=== PATIENT | male | born 1940 | race Caucasian/White ===

== ENCOUNTER 2017-10-28 15:44 | Inpatient (IN) | payer OTHER, MEDICARE ==
[2017-10-28] MEDS ORDERED: CEFTRIAXONE/SWI 2gm 2 GM/20 ML SYR IV SCH (18:00)
[2017-10-28] MEDS: HYDRALAZINE HCL 25 MG TABLET PO SCH ×2 (18:05→20:57)
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
--- NOTE | 2017-10-28 20:51 | RAD REPORT ---
EXAM DESCRIPTION: RAD - Chest Pa And Lat (2 Views) - 10/28/2017 8:25 pm CLINICAL HISTORY: Fever COMPARISON: CT imaging same date, chest examination August 06 TECHNIQUE: PA and lateral views of the chest were obtained. FINDINGS: The lungs are fibrotic. There is scarring of the pleura and parenchyma in each lung base, worse on the left. Patient has a known large hiatal hernia from prior diaphragmatic injury. No active process. Old rib trauma noted on the left. Trachea is midline. Heart size is normal and central va sculature is within normal limits. No pneumothorax. No acute bony finding noted. No aortic abnormal ity. IMPRESSION: No acute cardiopulmonary process. The above detailed chest findings are not significant ly different from comparison.
[2017-10-28] MEDS ORDERED: HOME MED 1 EA UNK (Pravastatin [Pravachol*] 40 MG) PO SCH (21:00)
[2017-10-28] MEDS: NACHLORIDE 0.45% 1,000 ML IV SCH (21:00)
[2017-10-28] MEDS ORDERED: LATANOPROST EACH EYE SCH (21:00)
[2017-10-28] MEDS: ATORVASTATIN 10 MG TAB PO SCH (21:01)
[2017-10-28] MEDS: METOPROLOL TAR 25 MG TAB PO SCH (21:01)
[2017-10-28] MEDS: CIPROFLOXACIN 400mg IV 400 MG/200 ML BAG IV SCH (21:12)
[2017-10-28 21:17] LABS: Urine Appearance CLEAR; Urine Bilirubin NEGATIVE (NEG); Urine Blood NEGATIVE (NEG); Urine Color YELLOW; Urine Glucose NEGATIVE (NEG); Urine Protein 1+ (NEG); Urine Specific Gravity >=1.030 (1.005-1.030)
[2017-10-28 21:18] LABS: Urine Microscopic Reflex ORDER UMIC
[2017-10-28 21:33] LABS: Urine Bacteria <20 /HPF (NONE SEEN); Urine Culture Reflex Order NOT NEEDED; Urine RBC <5 /HPF (NONE SEEN)
[2017-10-29] MEDS: METRONIDAZOLE 500mg IVPB 500 MG/100 ML BAG IV SCH ×3 (01:22→17:08)
[2017-10-29] MEDS: NACHLORIDE 0.45% 1,000 ML IV SCH ×2 (05:30→17:08)
[2017-10-29] MEDS ORDERED: OLMESARTAN MEDOXOMIL 40 MG PO SCH (09:00)
[2017-10-29] MEDS: HYDRALAZINE HCL 25 MG TABLET PO SCH ×4 (09:16→20:23)
[2017-10-29] MEDS: CIPROFLOXACIN 400mg IV 400 MG/200 ML BAG IV SCH ×2 (09:16→20:23)
[2017-10-29] MEDS: VALSARTAN 160 MG TAB PO SCH (09:16)
[2017-10-29] MEDS: METOPROLOL TAR 25 MG TAB PO SCH ×2 (09:17→20:23)
--- NOTE | 2017-10-29 19:25 | HP ---
Date of Admission: 10/28/2017 Chief Complaint: High fever, lower abdominal pain. History Of Present Illness: A 77-year-old male was brought to the office with a few days of lower ab dominal pain and dysuria. Initially, urinalysis in the office was negative. The patient was admitte d for observation to see why his white count was elevated to 19,000. He had outpatient blood work. After admission, the patient had a CAT scan done, which showed evidence of moderate sigmoid diverticu litis. Past Medical History: Positive for hypertension, intermittent bowel obstruction. Family History: Noncontributory. Personal History: No known drug allergies. Home Medicines: Please refer to the chart. Review of Systems: No history of chest pain or shortness of breath. Physical Examination: General: Revealed a 77-year-old male. HEENT: Negative. Neck: Supple. JVD negative. Chest: Clear. Heart: Regular. Abdomen: Tender suprapubic area. Bowel sounds present. Extremities: No edema. Laboratory Data: White count at admission outpatient 19,000. Chem profile essentially negative. Assessment: 1.Acute diverticulitis. 2.Hypertension. 3.History of small bowel obstruction. Plan: IV Cipro and Flagyl. Follow the CBC. DILLON/BILLY Voice ID: [id number]
[2017-10-29] MEDS: ATORVASTATIN 10 MG TAB PO SCH (20:24)
[2017-10-29] MEDS ORDERED: ALPRAZOLAM 0.5 MG TABLET PO PRN (21:26)
[2017-10-29] MEDS: ENOXAPARIN 40 MG/0.4 ML SQ SCH (21:47)
--- NOTE | 2017-10-29 23:20 | PN ---
The patient is doing better. His tenderness is better. He is afebrile. Since he is improving, he w ill be continued on the same antibiotics. His CBC will be done tomorrow. DILLON/BILLY Voice ID: [id number] Report ID: [id number]
[2017-10-30] MEDS: METRONIDAZOLE 500mg IVPB 500 MG/100 ML BAG IV SCH ×2 (00:27→09:39)
[2017-10-30] MEDS: NACHLORIDE 0.45% 1,000 ML IV SCH (00:28)
--- NOTE | 2017-10-30 07:43 | EKG ---
Test Date: 2017-10-29 Test Time: 20:47:34 Restaurant Area Manager: OSEI MEASUREMENT RESULTS: Intervals: Rate: 73 NV: 148 QRSD: 84 QT: 422 QTc: 464 Wyckoff: P: 59 NV: 148 QRS: -32 T: 8 INTERPRETIVE STATEMENTS: Sinus rhythm with occasional and consecutive premature ventricular complexes Left axis deviation Abnormal ECG Compared to ECG 08/05/2017 04:42:29 Sinus arrhythmia no longer present Prolonged QT interval no longer present Electronically Signed On 10-30-17 07:42:44 CDT by Luis Salinas
[2017-10-30 09:39] LABS: RBC Red Blood Cell Count 3.81 M/uL (4.33-5.43)
[2017-10-30] MEDS: METOPROLOL TAR 25 MG TAB PO SCH ×2 (09:39→21:45)
[2017-10-30] MEDS: CIPROFLOXACIN 400mg IV 400 MG/200 ML BAG IV SCH ×2 (09:39→21:47)
[2017-10-30] MEDS: HYDRALAZINE HCL 25 MG TABLET PO SCH ×4 (09:39→21:53)
[2017-10-30] MEDS: VALSARTAN 160 MG TAB PO SCH (09:39)
[2017-10-30 09:40] LABS: Absolute Lymphocytes (CBC) 1.6 K/uL (0.7-4.9); Absolute Monocytes 2.7 K/uL (0.1-1.3); Absolute Neutrophil 10.3 K/uL (1.8-8.0); Basophils % 0.4 % (0-1.3); Eosinophils % 2.9 % (0-4.4); Hematocrit 35.9 % (39.6-49.0); Lymphocytes % 10.5 % (15.3-44.8); MCH 31.1 pg (27.0-35.0); MCV 94.2 fL (80-100); MPV 9.5 fL (7.6-11.3); Monocytes % 17.8 % (3.3-12.3)
--- NOTE | 2017-10-30 19:48 | PN ---
Subjective: The patient feeling better. He is tolerating the diet, which will be advanced. His whi te count has come down to 15,000. He still has some tenderness in the left lower quadrant. The frank ent will be continued along the same line since he is eating adequately. He will be taken off IV flu ids. DILLON/BILLY Voice ID: [id number] Report ID: [id number]
[2017-10-30] MEDS: ENOXAPARIN 40 MG/0.4 ML SQ SCH (21:47)
[2017-10-30] MEDS: ATORVASTATIN 10 MG TAB PO SCH (21:47)
[2017-10-30] MEDS: metroNIDAZOLE 500 MG TABLET PO SCH (21:47)
[2017-10-31] MEDS: VALSARTAN 160 MG TAB PO SCH (10:14)
[2017-10-31] MEDS: metroNIDAZOLE 500 MG TABLET PO SCH ×3 (10:14→20:11)
[2017-10-31] MEDS: HYDRALAZINE HCL 25 MG TABLET PO SCH ×4 (10:14→20:11)
[2017-10-31] MEDS: CIPROFLOXACIN 400mg IV 400 MG/200 ML BAG IV SCH ×2 (10:14→20:10)
[2017-10-31] MEDS: METOPROLOL TAR 25 MG TAB PO SCH ×2 (10:15→20:24)
[2017-10-31] MEDS: ATORVASTATIN 10 MG TAB PO SCH (20:11)
[2017-10-31] MEDS: ENOXAPARIN 40 MG/0.4 ML SQ SCH (20:11)
[2017-11-01 00:46] VITALS: O2SAT 96
[2017-11-01 07:21] VITALS: BMI 23.9
[2017-11-01] MEDS: CIPROFLOXACIN 400mg IV 400 MG/200 ML BAG IV SCH (09:00)
[2017-11-01] MEDS: metroNIDAZOLE 500 MG TABLET PO SCH (10:07)
[2017-11-01] MEDS: METOPROLOL TAR 25 MG TAB PO SCH (10:07)
[2017-11-01] MEDS: HYDRALAZINE HCL 25 MG TABLET PO SCH ×2 (10:07→12:33)
[2017-11-01] MEDS: VALSARTAN 160 MG TAB PO SCH (10:08)
[2017-11-01 12:43] VITALS: BP 185/82; TEMP 97.5
--- NOTE | 2017-12-05 17:09 | DS ---
Date of Discharge: 11/01/2017 Final Diagnoses: 1.Acute diverticulitis. 2.Hypertension. 3.History of small bowel obstruction. Hospital Course: This patient was brought to the office because of abdominal pain, dysuria, and feve r. The patient had a CAT scan done, which showed sigmoid diverticulitis with a white count of 18,000 . After admission to the hospital, the patient was kept n.p.o. He received IV Cipro and Flagyl. Ov er the few days, he showed improvement of pain as well as fever. The patient was discharged on oral Cipro and Flagyl and to be followed in the office. Laboratory Data: White count 19,000. CAT scan of the abdomen, evidence of sigmoid diverticulitis. DILLON/BILLY Voice ID: [id number] Report ID: [id number]
== END 2017-11-01 12:48 | disposition home or self-care (01) | DRG 392 ==
LOC: 2ND 16:46
PROVIDERS: ADMIT Internal Medicine; ATTEND Internal Medicine
DX: K57.32 Diverticulitis of large intestine without perforation or abscess without bleeding (principal); I10 Essential (primary) hypertension
CPT/HCPCS: 36415; 71046; 74177; 80053; 81003; 81015; 85025; 87040; 87086; 87088; 87205; 87493; 93005; J0696; J0744; J1650; Q9967

== ENCOUNTER 2019-10-09 22:03 | Inpatient (IN) | payer OTHER, MEDICARE ==
[2019-10-09] MEDS ORDERED: NA CHLORIDE 0.9% 500 ML ONE (22:37)
[2019-10-09] MEDS ORDERED: ONDANSETRON 4 MG/2 ML VIAL ONE (22:37)
[2019-10-09] MEDS ORDERED: MORPHINE 4 MG/ML SYR ONE (22:37)
[2019-10-09 23:02] LABS: Absolute Lymphocytes (CBC) 2.3 K/uL (0.7-4.9); Basophils % 0.6 % (0-1.3); Hematocrit 44.2 % (39.6-49.0); Lymphocytes % 12.6 % (15.3-44.8); MPV 9.8 fL (7.6-11.3); RBC Red Blood Cell Count 4.67 M/uL (4.33-5.43)
[2019-10-09 23:06] LABS: Albumin 4.3 g/dL (3.4-5.0); Bilirubin Direct 0.1 mg/dL (0-0.2); Bilirubin Total 0.5 mg/dL (0.2-1.0); Potassium 3.9 mmol/L (3.5-5.1); Protein, Total 9.2 g/dL (6.4-8.2)
[2019-10-10] MEDS ORDERED: MEPERIDINE HCL 25 MG/0.5 ML ONE (00:20)
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
--- NOTE | 2019-10-10 01:39 | ER ---
Nurse's Notes [facility] Name: Brennen Patel Age: 79 yrs Sex: Male : 1940 Arrival Date: 10/09/2019 Time: 22:07 Bed 14 Private MD: Diagnosis: Small bowel obstruction;Dehydration Presentation: 10/08 22:18 Chief complaint: Patient states: i have lower abdominal pain since lunch time. i have mg2 history of small bowel obstruction last 2017. my last bowel movement was yesterday. Coronavirus screen: Proceed with normal triage. Ebola Screen: No symptoms or risks identified at this time. Initial Sepsis Screen: Does the patient meet any 2 criteria? No. Patient's initial sepsis screen is negative. Does the patient have a suspected source of infection? No. Patient's initial sepsis screen is negative. Risk Assessment: Do you want to hurt yourself or someone else? Patient reports no desire to harm self or others. Onset of symptoms was October 09, 2019. 22:18 Method Of Arrival: Ambulatory mg2 22:18 Acuity: EL 3 mg2 Historical: - Allergies: 22:29 No Known Allergies; mg2 - Home Meds: 22:29 hydralazine 50 mg Oral tab 1 tab 4 times per day [Active]; Benicar 40 mg Oral tab 1 tab mg2 once daily [Active]; pravastatin 40 mg Oral tab 1 tab once daily [Active]; metoprolol tartrate 25 mg Oral tab 1 tab 2 times per day [Active]; pantaprazole 40mg [Active]; amlodipine 5 mg tab 1 tab once daily [Active]; - PMHx: 22:29 GERD; High Cholesterol; Hypertension; mg2 - PSHx: 22:29 abdominal sx; mg2 - Immunization history:: Flu vaccine is up to date. - Social history:: Smoking status: unknown. - Family history:: not pertinent. - Hospitalizations: : No recent hospitalization is reported. Screenin:46 Abuse screen: Denies threats or abuse. Denies injuries from another. Nutritional mg2 screening: No deficits noted. Tuberculosis screening: No symptoms or risk factors identified. Fall Risk IV access (20 points). Assessment: 22:42 General: Appears in no apparent distress. comfortable, Behavior is calm, cooperative. mg2 Pain: Complains of pain in abdomen. Neuro: Level of Consciousness is awake, alert, obeys commands, Oriented to person, place, time, situation. Cardiovascular: Capillary refill < 3 seconds Patient's skin is warm and dry. Respiratory: Airway is patent Respiratory effort is even, unlabored, Respiratory pattern is regular, symmetrical. GI: Bowel sounds present X 4 quads. Abd is soft and non tender Abd is soft X 4 quads. : No signs and/or symptoms were reported regarding the genitourinary system. EENT: No signs and/or symptoms were reported regarding the EENT system. Derm: Skin is intact, is healthy with good turgor, Skin is pink, warm \T\ dry. normal. Musculoskeletal: Circulation, motion, and sensation intact. Capillary refill < 3 seconds. 23:43 Reassessment: Patient appears in no apparent distress at this time. Patient and/or mg2 family updated on plan of care and expected duration. Pain level reassessed. Patient is alert, oriented x 3, equal unlabored respirations, skin warm/dry/pink. 10/09 00:45 Reassessment: patient sent to ct scan via stretcher. mg2 01:21 Reassessment: Patient appears in no apparent distress at this time. Patient and/or mg2 family updated on plan of care and expected duration. Pain level reassessed. Patient is alert, oriented x 3, equal unlabored respirations, skin warm/dry/pink. Patient states feeling better. 02:20 Reassessment: coffee ground gastric content noted via NGT. mg2 Vital Signs: 10/08 22:18 BP 184 / 91; Pulse 75; Resp 18; Temp 98.1; Pulse Ox 100% on R/A; Weight 72.57 kg; mg2 Height 5 ft. 9 in. (175.26 cm); 23:09 BP 157 / 77; mg2 10/09 00:18 BP 135 / 89; Pulse 78; Resp 18; Pulse Ox 98% on R/A; mg2 01:21 BP 148 / 74; Pulse 72; Resp 18; Pulse Ox 99% on R/A; mg2 02:25 BP 147 / 67; Pulse 73; Resp 18; Temp 98; Pulse Ox 94% on R/A; rr5 10/08 22:18 Body Mass Index 23.63 (72.57 kg, 175.26 cm) mg2 ED Course: 10/08 22:07 Patient arrived in ED. bp1 22:11 Andrew Kenny MD is Attending Physician. rn 22:23 Charlie Grijalva, BHUPINDER is Primary Nurse. mg2 22:26 Triage completed. mg2 22:26 Arm band placed on. mg2 22:40 Call light in reach. Side rails up X 1. Warm blanket given. Verbal reassurance given. jp3 Pulse ox on. NIBP on. 22:40 Initial lab(s) drawn, by me, sent to lab. Inserted saline lock: 20 gauge in right jp3 antecubital area, using aseptic technique. Blood collected. 22:46 No provider procedures requiring assistance completed. mg2 10/09 00:51 CT Abd/Pelvis - PO and IV Contrast In Process Unspecified. EDMS 01:38 Bob Lewis MD is Hospitalizing Provider. rn 02:00 NGT: inserted 16 Fr. via right nare. verified placement of air over stomach, verified mg2 return of gastric contents, to intermittent suction. Returned gastric contents. Patient tolerated well. 02:09 Patient admitted, IV remains in place. mg2 Administered Medications: 10/08 22:36 Drug: NS 0.9% 500 ml Route: IV; Rate: bolus; Site: right antecubital; mg2 22:36 Drug: morphine 4 mg Route: IVP; Site: right antecubital; mg2 22:55 Follow up: Response: No adverse reaction; RASS: Alert and Calm (0) mg2 22:37 Drug: Zofran (Ondansetron) 4 mg Route: IVP; Site: right antecubital; mg2 22:54 Follow up: Response: No adverse reaction mg2 10/09 00:18 Drug: Demerol 25 mg Route: IVP; Site: right antecubital; mg2 02:08 Follow up: Response: No adverse reaction mg2 01:46 Drug: Flagyl 500 mg Volume: 100 ml; Route: IVPB; Rate: 200 ml/hr; Infused Over: 30 mg2 mins; Site: right antecubital; 02:20 Follow up: Response: No adverse reaction; IV Status: Completed infusion mg2 01:47 Drug: Rocephin 1 grams Route: IV; Rate: calculated rate; Site: right antecubital; mg2 Output: 02:20 Gastric: 900ml (NGT); Total: 900ml. mg2 Outcome: 01:38 Decision to Hospitalize by Provider. rn 02:22 Admitted to Med/surg accompanied by tech, via stretcher, room 224, with chart, Report rr5 called to denis 02:22 Condition: stable 02:22 Instructed on the need for admit. 02:31 Patient left the ED. mg2 Signatures: Dispatcher [employer] EDMS Andrew Kenny MD MD rn Gardose, Michele, RN RN mg2 Miko Javed jp3 Arun Luque RN RN rr5 [facility]
[2019-10-10] MEDS ORDERED: ONDANSETRON 4 MG/2 ML VIAL IV PRN (01:43)
[2019-10-10] MEDS ORDERED: MORPHINE 2 MG/ML SYR IV PRN (01:43)
[2019-10-10] MEDS ORDERED: ALBUTEROL 2.5 MG/3 ML NEB SOL NEB PRN ×2 (01:46→16:00)
[2019-10-10] MEDS ORDERED: CEFTRIAXONE/SWI 1gm 1 GM/10 ML SYR ONE (01:47)
[2019-10-10] MEDS ORDERED: METRONIDAZOLE 500mg IVPB 500 MG/100 ML BAG IV ONE (01:47)
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
[2019-10-10 02:54] VITALS: BMI 25.4
[2019-10-10] MEDS: D5 0.9 NS 1,000 ML IV SCH ×2 (03:28→12:00)
[2019-10-10] MEDS: CEFTRIAXONE/SWI 1gm 1 GM/10 ML SYR IV SCH (08:31)
[2019-10-10] MEDS: HEPARIN 5000 UNIT/ML 1 ML VIAL SQ SCH ×2 (08:31→20:17)
[2019-10-10] MEDS: FAMOTIDINE 20 MG/2 ML VIAL IV SCH (08:31)
--- NOTE | 2019-10-10 11:28 | RAD REPORT ---
EXAM DESCRIPTION: CT abdomen and pelvis with IV contrast CLINICAL HISTORY: 79-year-old male with lower abdominal pain since lunch today; history of previous abdominal surgery f or small bowel obstruction in 2018. TECHNIQUE: Axial CT imaging of the abdomen and pelvis was performed following the administration of intravenous contrast.. Sagittal and coronal reconstructed images were then performed. The CT study is perform ed according to ALARA (as low as reasonably achievable) or ALARA/IMAGE GENTLY, with automatic adjustm ent of mA and/or kV according to patient size. Performed on: 10/10/2019 at 12:43 AM. COMPARISON: 10/28/2017 FINDINGS: Lung bases: The lung bases are clear. However, there is a large hiatal hernia containing p ortions of the stomach, multiple small bowel loops as well as portions of the pancreas and omental fa t. Liver: The liver is normal in size and configuration. No focal hepatic abnormalities are identified. Liver attenuation is within normal limits. There is a punctate calcification within the right hepatic lobe near the dome. Spleen: The spleen is surgically absent. There is a small splenule in the left upper quadrant measuri ng approximately 1.8 cm in diameter. Gallbladder and bile duct: The gallbladder is well distended and unremarkable. There is no biliary ductal dilatation. Pancreas: The pancreas is grossly unremarkable. However, a portion of the pancreas extends through th e hiatal hernia. Adrenal Glands: The adrenal glands are normal in size and configuration. Kidneys: The kidneys are normal in size and configuration. There is no evidence of hydronephrosis. Th ere are nonobstructing right renal calculi. No definite solid or cystic renal mass lesions are identi fied. Stomach: The stomach is moderately distended with oral contrast. There is a moderate hiatal hernia as described above. Bowel: There are multiple dilated fluid-filled small bowel loops in the mid to upper abdomen consiste nt with a small bowel obstruction. The transition point appears to be in the mid left hemiabdomen. Th ere is associated mesenteric edema and there is a small amount of free fluid in the pelvis. The dista l small bowel loops are normal in caliber. There appears to be a duodenal diverticulum which partiall y contains air and contrast. There is scattered colonic diverticulosis. Appendix: The appendix is normal. Free air: There is no evidence of free air. Free fluid: There is a small amount of free fluid in the pelvis. Vasculature: The aorta is normal in caliber and contour. The inferior vena cava is grossly unremarkab le. There are atherosclerotic calcifications along the abdominal aorta and proximal iliac and femoral arteries. Lymphadenopathy: No pathologic lymphadenopathy is identified. Bladder: The bladder is well distended and smooth in contour. Reproductive: The prostate gland is mildly enlarged and measures approximately 4.6 x 3.9 cm in cross- sectional diameter. Bones: There are advanced degenerative changes of the thoracolumbar spine. There are old healed fract ures of the pubic rami bilaterally. Soft tissues: There is a small fat-containing supraumbilical ventral abdominal wall hernia. There is a small fat-containing right inguinal hernia similar when compared to the prior study. IMPRESSION: 1. CT findings consistent with a small bowel obstruction. The transition point appears t o be in the mid left hemiabdomen. There is associated mesenteric edema and a small amount of free flu id in the pelvis without definite pneumoperitoneum. 2. Prior splenectomy. 3. Large hiatal hernia containing portions of the stomach, small bowel and pancreas. 4. Nonobstructing right renal calculi. 5. Colonic diverticulosis. 6. Duodenal diverticulum. 7. Advanced degenerative changes of the thoracolumbar spine and old healed pubic rami fractures bilat erally. 8. Grossly stable small fat-containing supraumbilical ventral abdominal wall hernia and fat-containin g right inguinal hernia. These critical findings were discussed with Dr. Kenny on 10/10/2019 at 1:28 AM central time Electronically signed by: Sydnie Florian DO 10/10/2019 1:33 AM CDT Due to temporary technical issues with the PACS/Fluency reporting system, reports are being signed by the in house radiologist as a courtesy to ensure prompt reporting. The interpreting radiologist is f ully responsible for the content of the report.
--- NOTE | 2019-10-10 11:29 | RAD REPORT ---
EXAM DESCRIPTION: RAD - Abdomen W Erect - 10/10/2019 11:18 am CLINICAL HISTORY: SBO Pain COMPARISON: ABDOMEN W ERECT dated 07/05/2005; Abdomen Pelvis W Contrast dated 10/10/2019 FINDINGS: A large hiatal hernia is seen with enteric tube in the stomach. Moderate stool present in the right colon. No dilated small bowel loops are seen. No evidence of pneumoperitoneum.
[2019-10-10] MEDS ORDERED: KCL 20 MEQ/100 mL IVPB 20 MEQ/100 ML BAG IV SCH (13:00)
[2019-10-10] MEDS: D5 0.45 NS 1,000 ML IV SCH ×2 (13:04→23:00)
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
[2019-10-10] MEDS: METRONIDAZOLE 500mg IVPB 500 MG/100 ML BAG IV SCH (18:18)
--- NOTE | 2019-10-10 18:42 | RAD REPORT ---
EXAM DESCRIPTION: US - Renal Ultrasound-Complete - 10/10/2019 6:36 pm CLINICAL HISTORY: JUANCHO COMPARISON: Abdomen Pelvis W Contrast dated 10/10/2019 FINDINGS: The right kidney measures approximately 8.0 x 4.2 x 3.8 cm. The left kidney measures 8.6 x 3.9 x 3.3 cm. Cortical thickness is normal. Echogenicity is not outside of normal range. No hydrone phrosis or suspicious renal mass. Patient has nonobstructing calculi upper pole of the right kidney. No bladder wall thickening or mass. No intraluminal stone or mass. IMPRESSION: No hydronephrosis or suspicious renal mass. No other significant findings.
[2019-10-10] MEDS ORDERED: HOME MED [LATANOPROST 0.005% 2.5ML OPTH] OPTH SCH (21:00)
[2019-10-11] MEDS: METRONIDAZOLE 500mg IVPB 500 MG/100 ML BAG IV SCH ×3 (00:28→16:48)
[2019-10-11 04:27] LABS: Absolute Lymphocytes (CBC) 2.1 K/uL (0.7-4.9); Basophils % 0.6 % (0-1.3); Hematocrit 34.9 % (39.6-49.0); Lymphocytes % 14.6 % (15.3-44.8); MPV 9.8 fL (7.6-11.3); RBC Red Blood Cell Count 3.74 M/uL (4.33-5.43)
[2019-10-11 04:41] LABS: Albumin 2.9 g/dL (3.4-5.0); Bilirubin Total 0.5 mg/dL (0.2-1.0); Phosphorus 2.1 mg/dL (2.5-4.9); Potassium 3.5 mmol/L (3.5-5.1); Protein, Total 6.7 g/dL (6.4-8.2)
[2019-10-11] MEDS: D5 0.45 NS 1,000 ML IV SCH ×2 (04:54→18:17)
[2019-10-11 05:07] LABS: Blood Morphology Comment NOTED (NOT SEEN); Burr Cells 3+; Platelet Estimate ADEQ
[2019-10-11] MEDS: FAMOTIDINE 20 MG/2 ML VIAL IV SCH (10:59)
[2019-10-11] MEDS: HEPARIN 5000 UNIT/ML 1 ML VIAL SQ SCH ×2 (10:59→21:40)
[2019-10-11] MEDS: CEFTRIAXONE/SWI 1gm 1 GM/10 ML SYR IV SCH (10:59)
[2019-10-11] MEDS: HYDRALAZINE HCL 20 MG/ML VIAL IV PRN (11:55)
[2019-10-11 12:06] LABS: Urine Protein/Creatinine Ratio 0.61 ratio (<0.15)
--- NOTE | 2019-10-11 14:52 | PN ---
Date of Progress Note: 10/11/2019 Patient is awake, alert, passing gas. Vital signs stable, afebrile. X-ray reviewed, no evidence of obstruction. Labs noted. Please note patient did have a low-grade temperature earlier today. Abdom en is soft, nondistended, nontender. Positive bowel sounds. Assessment: Small-bowel obstruction, resolving. Recommendations: Clamp NG tube. Start clear liquids. May discontinue NG tube if clear liquids are tolerated later today and then cleared from a surgical standpoint to be discharged in 24 to 48 hours. /MODL Voice ID: [id number] Report ID: [id number]
[2019-10-11] MEDS ORDERED: MINERAL OIL 30 ML UCUP PO ONE (16:00)
--- NOTE | 2019-10-11 16:37 | P.PN ---
Subjective Date of Service: 10/11/19 Chief Complaint: LOWER ABDOMINAL PAIN Subjective: Improving Patient seen and examined chart reviewed and case discussed with RN. Patient tolerating clear liquids. NG tube has been clamped. Plan is to to Dc NG-tube tonight if doing well. does report minimal abdominal distention Review of Systems 10-point ROS is otherwise unremarkable Gastrointestinal: As per HPI Physical Examination - Vital Signs Temperature: 98.4 F Blood Pressure: 155/69 Pulse: 87 Respirations: 16 Pulse Ox (%): 97 - Physical Exam General: Alert, In no apparent distress, Oriented x3, Other (Elderly male) HEENT: Atraumatic, PERRLA, EOMI Neck: Supple, JVD not distended Respiratory: Clear to auscultation bilaterally, Normal air movement, Other (No wheezing or stridor) Cardiovascular: No edema, Normal pulses, Regular rate/rhythm, Normal S1 S2 Gastrointestinal: Hypoactive, No tenderness, No rebound, No guarding, Distended Musculoskeletal: No tenderness Integumentary: No rashes, No erythema Neurological: Normal speech, Normal strength at 5/5 x4 extr, Normal tone, Normal affect - Studies Laboratory Last Values WBC 18.3 K/uL (4.3-10.9) H 10/09/19 22:30 RBC 4.67 M/uL (4.33-5.43) 10/09/19 22:30 Hgb 14.7 g/dL (13.6-17.9) 10/09/19 22:30 Hct 44.2 % (39.6-49.0) 10/09/19 22:30 MCV 94.7 fL (80-100) 10/09/19 22:30 MCH 31.5 pg (27.0-35.0) 10/09/19 22:30 MCHC 33.3 g/dL (32.0-36.0) 10/09/19 22:30 RDW 13.4 % (12.1-15.2) 10/09/19 22:30 Plt Count 232 K/uL (152-406) 10/09/19 22:30 MPV 9.8 fL (7.6-11.3) 10/09/19 22:30 Neutrophils % 72.2 % (41.7-73.7) 10/09/19 22:30 Lymphocytes % 12.6 % (15.3-44.8) L 10/09/19 22:30 Monocytes % 13.8 % (3.3-12.3) H 10/09/19 22:30 Eosinophils % 0.8 % (0-4.4) 10/09/19: Basophils % 0.6 % (0-1.3) 10/09/19 22:30 Absolute Neutrophils 13.2 K/uL (1.8-8.0) H 10/09/19 22: Absolute Lymphocytes 2.3 K/uL (0.7-4.9) 10/09/19: Absolute Monocytes 2.5 K/uL (0.1-1.3) H 10/09/19: Absolute Eosinophils 0.2 K/uL (0-0.5) 10/09/19: Absolute Basophils 0.1 K/uL (0-0.5) 10/09/19 22:30 Sodium 138 mmol/L (136-145) 10/09/19 22:30 Potassium 3.9 mmol/L (3.5-5.1) 10/09/19 22:30 Chloride 99 mmol/L (98-107) 10/09/19 22:30 Carbon Dioxide 29 mmol/L (21-32) 10/09/19 22:30 BUN 21 mg/dL (7-18) H 10/09/19 22:30 Creatinine 1.44 mg/dL (0.55-1.3) H 10/09/19 22:30 Creatinine 1.44 mg/dL (0.55-1.3) H 10/09/19 22:30 Estimated GFR 47 mL/min (=/>90) L 10/09/19 22:30 Glucose 138 mg/dL (74-106) H 10/09/19 22:30 Calcium 9.7 mg/dL (8.5-10.1) 10/09/19:30 Total Bilirubin 0.5 mg/dL (0.2-1.0) 10/09/19:30 Direct Bilirubin 0.1 mg/dL (0-0.2) 10/09/19 22:30 AST 19 U/L (15-37) 10/09/19 22:30 ALT 13 U/L (12-78) 10/09/19 22:30 Alkaline Phosphatase 68 U/L (45-117) 10/09/19 22:30 Serum Total Protein 9.2 g/dL (6.4-8.2) H 10/09/19 22:30 Albumin 4.3 g/dL (3.4-5.0) 10/09/19 22:30 Globulin 4.9 g/dL (2.3-3.5) H 10/09/19 22:30 Albumin/Globulin Ratio 0.9 (1.1-1.8) L 10/09/19 22:30 Lipase 358 U/L (73-393) 10/09/19 22:30 Medications List Reviewed: Yes Assessment And Plan Physician Review: Patient Assessed, Agree with Above Assessment and Plan Physician Review Additional Text: # small-bowel obstruction-follow with surgery. Appreciate Dr. Rob input -NG tube now clamped. - tolerating clear liquid. Possible Dc NG tube if doing well tonight. Will give trial of mineral oil -continue IV fluid with D5 NS -monitor glucose levels -follow surgery planned for possible surgical intervention if non improving #JUANCHO. Creatnine now normalized. Continue monitor. Avoid NSAIDs # hypertension-hold p.o. medication. Not well controlled - do IV hydralazine p.r.n. for now #Hyperlipidemia-hold statin # DVT prophylaxis-subcu Lovenox/heparin for now Advanced directive- d/w with patient
[2019-10-11] MEDS ORDERED: POTASSIUM PHOS IN 0.9 % NACL 15 MMOL/250 ML BAG IV ONE (17:00)
[2019-10-12] MEDS: METRONIDAZOLE 500mg IVPB 500 MG/100 ML BAG IV SCH ×3 (01:09→16:14)
--- NOTE | 2019-10-12 02:55 | P.PN ---
Subjective Date of Service: 10/12/19 Chief Complaint: LOWER ABDOMINAL PAIN Subjective: No new changes, No C/O voiced, Tolerating diet (-feel better -s/p large bm this am) Review of Systems 10-point ROS is otherwise unremarkable Physical Examination - Vital Signs Temperature: 98.9 F Blood Pressure: 162/74 Pulse: 90 Respirations: 14 Pulse Ox (%): 96 - Physical Exam General: Alert, In no apparent distress, Oriented x3 HEENT: Atraumatic Neck: 2+ carotid pulse no bruit, JVD not distended Respiratory: Clear to auscultation bilaterally, Normal air movement Cardiovascular: Normal pulses, Regular rate/rhythm Gastrointestinal: Normal bowel sounds, Soft and benign, Non-distended Musculoskeletal: No clubbing, No swelling Neurological: Normal speech - Studies Medications List Reviewed: Yes Assessment And Plan - Current Problems (Diagnosis) (1) Small bowel obstruction due to adhesions Current Visit: Yes Status: Acute (2) Acute renal failure Current Visit: Yes Status: Acute (3) Hypertension Onset Date: 12/06/17 Current Visit: No Status: Acute Physician Review: Patient Assessed, Agree with Above Assessment and Plan Physician Review Additional Text: # SBO -presumed due to adhesions - improving slowly -will remove NGT tube now - can advance diet TODAY AND plan for dc in am if still tolerating -appreciate surgery -Dr. Rob -dc IVF for now #JUANCHO. -due to pre-renal -resolved # HTN - c/w prn IV hydralazine for now #Hyperlipidemia-c/w to hold statin # DVT prophylaxis-subcu Lovenox/heparin for now possible home in am if still improving
[2019-10-12] MEDS ORDERED: LABETALOL 20 MG/4ML SYRINGE IV ONE (02:57)
[2019-10-12 05:03] LABS: Absolute Lymphocytes (CBC) 2.3 K/uL (0.7-4.9); Basophils % 0.4 % (0-1.3); Hematocrit 36.9 % (39.6-49.0); Lymphocytes % 16.6 % (15.3-44.8); MPV 9.2 fL (7.6-11.3); RBC Red Blood Cell Count 3.92 M/uL (4.33-5.43)
[2019-10-12 05:22] LABS: Albumin 3.1 g/dL (3.4-5.0); Phosphorus 1.7 mg/dL (2.5-4.9); Potassium 3.5 mmol/L (3.5-5.1)
[2019-10-12] MEDS: D5 0.45 NS 1,000 ML IV SCH (06:13)
--- NOTE | 2019-10-12 07:32 | RAD REPORT ---
EXAM DESCRIPTION: RAD - Abdomen Single View - 10/12/2019 6:15 am CLINICAL HISTORY: SBO Pain COMPARISON: Renal Ultrasound-Complete dated 10/10/2019; Abdomen W Erect dated 10/10/2019; Abdomen P dana W Contrast dated 10/10/2019 FINDINGS: Tip of the enteric tube is in the left upper quadrant, likely within a prominent hiatal he rnia and appearing unchanged from comparative study. No dilated bowel loops seen to indicate small merlene wel obstruction. No evidence of pneumoperitoneum. Moderate degenerative levoscoliosis of lumbar spine. No pathologic calcifications. IMPRESSION: No significant bowel obstruction pattern seen.
[2019-10-12] MEDS: CEFTRIAXONE/SWI 1gm 1 GM/10 ML SYR IV SCH (08:06)
[2019-10-12] MEDS: HEPARIN 5000 UNIT/ML 1 ML VIAL SQ SCH (08:07)
[2019-10-12] MEDS: FAMOTIDINE 20 MG/2 ML VIAL IV SCH (08:07)
--- NOTE | 2019-10-12 12:39 | PN ---
Date of Progress Note: 10/12/2019 Subjective: Patient is awake, alert; tolerating diet, liquids. Positive bowel movements. No abdomi nal pain. Objective: Vital Signs: Stable. Afebrile. Abdomen: Completely benign. Laboratory Data: White count is still elevated prior secondary to splenectomy. Assessment: Small bowel obstruction, resolved. Recommendation: Advanced to full liquid diet and okay to discharge from Surgery standpoint. Follow up with PCP. Patient advised to eat small frequent meals and soft meal and stool softeners and Metam ucil and MiraLAX as needed. /MODL Voice ID: [id number] Report ID: [id number]
[2019-10-12] MEDS: HYDRALAZINE HCL 20 MG/ML VIAL IV PRN (13:17)
--- NOTE | 2019-10-12 13:24 | PN ---
Date of Progress Note: 10/12/2019 Subjective: Patient was admitted with acute kidney injury secondary to GI loss secondary to small merlene wel obstruction. Patient after hydration, kidney function normalized. Physical Examination: Vital Signs: Blood pressure 140/66, pulse of 85, afebrile. Patient had good urine output of 800. Chest: Clear to auscultation. Heart: S1, S2. Regular. Abdomen: Soft, nontender. Extremities: No edema. Neurologic: Alert, oriented. No focal. Laboratory Data: WBC 13.9, H and H 12.4/36.9, platelets 189. Sodium 139, potassium 3.5, bicarb 22, BUN 11, creatinine 1.1 GFR of 61, calcium 8.1, phosphorus 1.7, magnesium of 2. Albumin 3.1. PTH 57. Current Medications: The patient on include ceftriaxone, metronidazole, labetalol, Zofran, potassium phosphate. Assessment And Plan: 1.Acute kidney injury secondary to prerenal, normal size kidney, obstructive uropathy has been ruled out, superimposed with ARB, recovered, resolved. Patient off IV fluids for the last 48 hours. We w ill monitor the patient. Patient cleared from the renal standpoint for discharge planning, to follow up in the office in 3 to 4 weeks. 2.Hypertension, controlled, optimal. Keep holding ARB for the time being. We will challenge as out patient. Okay to resume amlodipine or beta lila. 3.Hypokalemia, hypophosphatemia. Agree with supplement. We will follow up. 4.Small bowel obstruction. Clear to start liquid diet. We will follow up with Surgery. NAZANIN Voice ID: [id number] Report ID: [id number]
[2019-10-12] MEDS ORDERED: METOPROLOL TARTRATE 5 MG/5 ML INJ IV STA (16:41)
[2019-10-12] MEDS ORDERED: METOPROLOL TARTRATE 5 MG/5 ML INJ IV ONE (16:46)
--- NOTE | 2019-10-12 17:27 | P.DS ---
Admission Date: 10/10/19 Discharge Date: 10/12/19 Disposition: ROUTINE DISCHARGE Discharge Condition: GOOD Reason for Admission: LOWER ABDOMINAL PAIN Consultations: General surgeon Dr. Rob Nephrology Dr. Muñoz Brief History of Present Illness: From H and P 79-YEAR-OLD MALE WITH PAST MEDICAL HISTORY OF HTN, HLD, history of traumatic abdominal injury about 20 years ago , with subsequent recurrent small-bowel obstruction usually managed conservatively, last episode was 3 years ago. Patient presented after developing mid abdominal pain nonradiating but crampy in pattern. His last bowel movement was yesterday. On arrival in the ED he was noted with CT finding of small bowel obstruction. He also had mild elevation in creatinine to 1.44. Surgery has been consulted. Patient is admitted for furt her care. He denies any fever or chills. Hospital Course: Patient is a 79-year-old male with past medical history of hypertension hyperlipidemia and previous abdominal surgery comes in with recurrent small bowel obstruction. patient had NG tube placed for decompression. General surgery was consulted. Patient did have mildly elevated creatinine level which improved with IV fluids. Nephrology was consulted as well. Patient was kept NPO and started on IV fluids. Patient was unable to pass gas and had a bowel movement of. Patient was tolerating clear liquids and NG tube was clamped. Repeat abdominal x-ray showed resolution of small bowel obstruction. Patient's NG tube was discontinued and patient was started on a bland diet. Patient is able to tolerate a solid diet. He was then cleared for discharge from surgical standpoint. He was also cleared from nephrology standpoint. The patient was instructed to eat small meals more frequently and to continue a bowel regimen with MiraLax. He has to take measures to avoid recurrent small bowel obstruction in the future. He will need close followup with his primary care physician and to follow up with surgeon as needed. Assessment # small-bowel obstruction-resolved #JUANCHO. Creatnine now normalized. # hypertension- stable - #Hyperlipidemia-stable Vital Signs/Physical Exam: Temp Pulse Resp BP Pulse Ox 98.1 F 164 H 16 136/58 L 97 10/12/19 16:00 10/12/19 16:42 10/12/19 16:00 10/12/19 16:42 10/12/19 16:00 Other Physical/Emotional Findings: Please see progress note dictated by Dr. Lewis for physical exam findings on the day of discharge Laboratory Data at Discharge: WBC 13.9 K/uL (4.3-10.9) H 10/12/19 04:45 Hgb 12.4 g/dL (13.6-17.9) L 10/12/19 04:45 Hct 36.9 % (39.6-49.0) L 10/12/19 04:45 Plt Count 189 K/uL (152-406) 10/12/19 04:45 Sodium 139 mmol/L (136-145) 10/12/19 04:45 Potassium 3.5 mmol/L (3.5-5.1) 10/12/19 04:45 BUN 11 mg/dL (7-18) 10/12/19 04:45 Creatinine 1.15 mg/dL (0.55-1.3) 10/12/19 04:45 Glucose 127 mg/dL (74-106) H 10/12/19 04:45 Phosphorus 1.7 mg/dL (2.5-4.9) L 10/12/19 04:45 Magnesium 2.0 mg/dL (1.8-2.4) 10/12/19 04:45 Total Bilirubin 0.5 mg/dL (0.2-1.0) 10/11/19 03:58 AST 19 U/L (15-37) 10/11/19 03:58 ALT 7 U/L (12-78) L 10/11/19 03:58 Alkaline Phosphatase 46 U/L (45-117) 10/11/19 03:58 Lipase 358 U/L (73-393) 10/09/19 22:30 Home Medications: Hydralazine [Apresoline*] 50 mg PO QID 07/27/12 Metoprolol Tartrate [Lopressor*] 25 mg PO BID 07/27/12 Pravastatin [Pravachol*] 40 mg PO BEDTIME 07/27/12 Latanoprost Ophth [Xalatan 0.005%*] 1 drop EACH EYE BEDTIME 08/05/17 Amlodipine [Norvasc*] 5 mg PO DAILY 10/10/19 Polyethylene Glycol 3350 [Miralax] 17 gm PO DAILY #30 powd.pack 10/12/19 New Medications: Polyethylene Glycol 3350 [Miralax] 17 gm PO DAILY #30 powd.pack Patient Discharge Instructions: Follow up with primary care physician in 1-2 weeks. Follow up with surgeon Dr. Rob in 2-4 weeks. Follow up with plastic extrusion operator Dr. Muñoz in 2 weeks. Return to ER for worsening condition Diet: Jack (Small meals) Activity: Ad juana Time spent managing pt's care (in minutes): 37
[2019-10-12] MEDS ORDERED: SODIUM PHOSPHATE 30 MM in NA CHLORIDE 0.9% 500 ML IV ONE (21:00)
[2019-10-12] MEDS: ENOXAPARIN 80 MG/0.8 ML SQ SCH (21:03)
[2019-10-12] MEDS: HYDRALAZINE HCL 25 MG TABLET PO SCH (21:04)
[2019-10-12] MEDS: METOPROLOL TAR 25 MG TAB PO SCH (21:04)
[2019-10-13] MEDS: DIGOXIN 0.25 MG TABLET PO SCH ×2 (00:04→05:59)
[2019-10-13] MEDS: METRONIDAZOLE 500mg IVPB 500 MG/100 ML BAG IV SCH ×3 (00:04→16:57)
[2019-10-13 05:54] LABS: Absolute Lymphocytes (CBC) 1.8 K/uL (0.7-4.9); Basophils % 0.5 % (0-1.3); Hematocrit 34.2 % (39.6-49.0); Lymphocytes % 17.6 % (15.3-44.8); MPV 9.2 fL (7.6-11.3); RBC Red Blood Cell Count 3.62 M/uL (4.33-5.43)
[2019-10-13 06:12] LABS: Albumin 2.6 g/dL (3.4-5.0); Magnesium 1.9 mg/dL (1.8-2.4); Phosphorus 3.3 mg/dL (2.5-4.9); Potassium 3.8 mmol/L (3.5-5.1)
[2019-10-13] MEDS: CEFTRIAXONE/SWI 1gm 1 GM/10 ML SYR IV SCH (08:37)
[2019-10-13] MEDS: HYDRALAZINE HCL 25 MG TABLET PO SCH ×3 (08:38→17:00)
[2019-10-13] MEDS: ENOXAPARIN 80 MG/0.8 ML SQ SCH (08:38)
[2019-10-13] MEDS: METOPROLOL TAR 25 MG TAB PO SCH (08:38)
[2019-10-13] MEDS: FAMOTIDINE 20 MG/2 ML VIAL IV SCH (08:38)
[2019-10-13] MEDS ORDERED: AMLODIPINE 5 MG TAB PO SCH (09:00)
--- NOTE | 2019-10-13 09:11 | P.PN ---
Subjective Date of Service: 10/13/19 Chief Complaint: LOWER ABDOMINAL PAIN Subjective: Improving Patient seen and examined chart reviewed and case discussed with RN and Dr. Duncan. Patient was to be discharged yesterday as he was tolerating his diet however close to discharge he developed atrial fibrillation with RVR. Still in atrial fibrillation but rate has improved with medications. Cardiology was consulted. An echocardiogram is pending Review of Systems 10-point ROS is otherwise unremarkable Cardiovascular: As per HPI Physical Examination - Vital Signs Temperature: 97.6 F Blood Pressure: 118/62 Pulse: 104 Respirations: 14 Pulse Ox (%): 94 - Physical Exam General: Alert, In no apparent distress, Oriented x3 HEENT: Atraumatic, PERRLA, EOMI Neck: Supple, JVD not distended Respiratory: Clear to auscultation bilaterally, Normal air movement Cardiovascular: No edema, Normal S1 S2, Irregular heart rate/rhythm Gastrointestinal: Normal bowel sounds, Soft and benign, Non-distended, No tenderness Musculoskeletal: No tenderness Integumentary: No rashes Neurological: Normal speech, Normal strength at 5/5 x4 extr, Normal tone, Normal affect Other Physical/Emotional Findings: Please see progress note dictated by Dr. Lewis for physical exam findings on the day of discharge - Studies Laboratory Last Values WBC 18.3 K/uL (4.3-10.9) H 10/09/19 22:30 RBC 4.67 M/uL (4.33-5.43) 10/09/19 22:30 Hgb 14.7 g/dL (13.6-17.9) 10/09/19 22:30 Hct 44.2 % (39.6-49.0) 10/09/19 22:30 MCV 94.7 fL (80-100) 10/09/19 22:30 MCH 31.5 pg (27.0-35.0) 10/09/19 22:30 MCHC 33.3 g/dL (32.0-36.0) 10/09/19 22:30 RDW 13.4 % (12.1-15.2) 10/09/19 22:30 Plt Count 232 K/uL (152-406) 10/09/19 22:30 MPV 9.8 fL (7.6-11.3) 10/09/19 22:30 Neutrophils % 72.2 % (41.7-73.7) 10/09/19 22:30 Lymphocytes % 12.6 % (15.3-44.8) L 10/09/19 22:30 Monocytes % 13.8 % (3.3-12.3) H 10/09/19 22:30 Eosinophils % 0.8 % (0-4.4) 10/09/19 22: Basophils % 0.6 % (0-1.3) 10/09/19 22: Absolute Neutrophils 13.2 K/uL (1.8-8.0) H 10/09/19 22: Absolute Lymphocytes 2.3 K/uL (0.7-4.9) 10/09/19: Absolute Monocytes 2.5 K/uL (0.1-1.3) H 10/09/19: Absolute Eosinophils 0.2 K/uL (0-0.5) 10/09/19: Absolute Basophils 0.1 K/uL (0-0.5) 10/09/19 22:30 Sodium 138 mmol/L (136-145) 10/09/19 22:30 Potassium 3.9 mmol/L (3.5-5.1) 10/09/19 22:30 Chloride 99 mmol/L (98-107) 10/09/19 22: Carbon Dioxide 29 mmol/L (21-32) 10/09/19 22:30 BUN 21 mg/dL (7-18) H 10/09/19 22:30 Creatinine 1.44 mg/dL (0.55-1.3) H 10/09/19 22: Creatinine 1.44 mg/dL (0.55-1.3) H 10/09/19 22:30 Estimated GFR 47 mL/min (=/>90) L 10/09/19: Glucose 138 mg/dL (74-106) H 10/09/19 22:30 Calcium 9.7 mg/dL (8.5-10.1) 10/09/19 22:30 Total Bilirubin 0.5 mg/dL (0.2-1.0) 10/09/19 22: Direct Bilirubin 0.1 mg/dL (0-0.2) 10/09/19 22: AST 19 U/L (15-37) 10/09/19 22:30 ALT 13 U/L (12-78) 10/09/19 22:30 Alkaline Phosphatase 68 U/L (45-117) 10/09/19 22:30 Serum Total Protein 9.2 g/dL (6.4-8.2) H 10/09/19 22:30 Albumin 4.3 g/dL (3.4-5.0) 10/09/19 22:30 Globulin 4.9 g/dL (2.3-3.5) H 10/09/19 22:30 Albumin/Globulin Ratio 0.9 (1.1-1.8) L 10/09/19 22:30 Lipase 358 U/L (73-393) 10/09/19 22:30 Medications List Reviewed: Yes Assessment And Plan Physician Review: Patient Assessed, Agree with Above Assessment and Plan Physician Review Additional Text: # SBO -presumed due to adhesions - improving slowly -resolved. Abdominal x-ray shows resolution. Patient tolerating soft diet -appreciate surgery -Dr. Rob -the bowel regimen # atrial fibrillation with RVR. Still in atrial fibrillation. Metoprolol dose increased to 50 b.i.d.. Digoxin 0.25 mg p.o. q.6 hr x4 doses. Echocardiogram pending. TSH is normal. Patient did have hypophosphatemia # hypophosphatemia replace and monitor #JUANCHO. -due to pre-renal -resolved . Monitor creatinine # HTN -home medications resumed. #Hyperlipidemia- statin # DVT prophylaxis-subcu Lovenox for now Dc home once cleared by cardiology
[2019-10-13 11:09] VITALS: O2SAT 97
--- NOTE | 2019-10-13 11:32 | P.PN ---
Subjective Date of Service: 10/13/19 Chief Complaint: LOWER ABDOMINAL PAIN Subjective pt was admitted with small bowel obstruction vlad JUANCHO , yesterday developed Afib with RVR today Hr controlled cardiology evaluation appreciated Cr stable Phos replavced cleared for discharge from nephrology point of view Physical exam general: AAOX3, Neck; Supple, No elevated JVD hear: RRR, normal S1,2 no murmur or rub Chest: CTAB, no rlaes or wheezes Abdomen: Soft , Nt Extremities No edema or ulcer Small bowel obstruction resolved surgery on board JUANCHO resolved due to dehydration hypophosphatemia reolsved Afib with RVR rate controlled now plan to add AC on metoprolol and digoxin tortal time spent 35 minutes Physical Examination - Vital Signs Temperature: 97.6 F Blood Pressure: 118/62 Pulse: 104 Respirations: 14 Pulse Ox (%): 94 - Physical Exam Other Physical/Emotional Findings: Please see progress note dictated by Dr. Lewis for physical exam findings on the day of discharge - Studies Medications List Reviewed: Yes Assessment And Plan Physician Review: Patient Assessed, Agree with Above Assessment and Plan
--- NOTE | 2019-10-13 12:25 | ECHO ---
HEIGHT: 5 ft 8 in WEIGHT: 167 lb 12.8 oz DATE OF STUDY: 10/13/[address]: Carmen Cooley MD 2-DIMENSIONAL: YES M.MODE: YES DOPPLER: YES COLOR FLOW: YES TDS: NO PORTABLE: NO DEFINITY: NO BUBBLE STUDY: NO DIAGNOSIS: ATRIAL FIBRILLATION CARDIAC HISTORY: CATHERIZATION: YES SURGERY: NO PROSTHETIC VALVE: NO PACEMAKER: NO MEASUREMENTS (cm) DIASTOLIC (NORMALS) SYSTOLIC (NORMALS) IVSd 1.2 (0.6-1.2) LA Diam 3.2 (1.9-4.0) LVEF 78% LVIDd 4.1 (3.5-5.7) LVIDs 2.2 (2.0-3.5) %FS 47% LVPWd 1.3 (0.6-1.2) Ao Diam 3.0 (2.0-3.7) 2 DIMENSIONAL ASSESSMENT: RIGHT ATRIUM: NORMAL LEFT ATRIUM: NORMAL RIGHT VENTRICLE: NORMAL LEFT VENTRICLE: NORMAL TRICUSPID VALVE: NORMAL MITRAL VALVE: NORMAL PULMONIC VALVE: NORMAL AORTIC VALVE: NORMAL PERICARDIAL EFFUSION: NONE AORTIC ROOT: NORMAL LEFT VENTRICULAR WALL MOTION: NORMAL. DOPPLER/COLOR FLOW: NORMAL. COMMENTS: NORMAL LEFT VENTRICULAR SIZE AND FUNCTION. ATRIAL FIBRILLATION. NORMAL LEFT ATRIAL SIZE. NO THROMBUS. TECHNOLOGIST: MARIJA POLO
[2019-10-13] MEDS: DIGOXIN 0.25 MG/ML AMP IV SCH ×2 (12:41→17:04)
[2019-10-13 13:20] VITALS: BP 96/58; TEMP 97.9
--- NOTE | 2019-10-13 17:15 | CON ---
Date of Consultation: 10/13/2019 Reason For Consultation: New-onset atrial fibrillation. History Of Present Illness: Mr. Patel is a 79-year-old white male. He was admitted to the [facility] with small bowel obstruction on 10/10/2019. He has a history of hypertension, dyslipidemia, gastro esophageal reflux disease. No previous cardiac history. He was actually ready to go home yesterday when he went into atrial fibrillation with rapid ventricular response. He had received metoprolol an d IV digoxin. They made an atrial fibrillation with a rate control of about 80. No symptoms. He de nied any chest pain, shortness of breath, PND, orthopnea, pedal edema, palpitations, or syncope. Den ied any fever or chills. Past Medical History: As stated above. Allergies: NONE. Review of Systems: Negative. Social History: Negative. Family History: Negative. Medications: At home include Norvasc, hydralazine, metoprolol, Pravachol. Physical Examination: General: He was pleasant, in no acute distress, atrial fibrillation, rate of about 80. HEENT: Negative. Neck: Supple with no bruit. Chest: Clear. Cardiac: Revealed atrial fibrillation. Abdomen: Benign. Extremities: Revealed no clubbing, cyanosis, or edema. Neurologic: He was nonfocal. Diagnostic Data: [place] [id number] [place] he first came in, it is normal now. He had a no rmal EKG when he first came in. It is in atrial fibrillation now. Impression And Plan: New onset atrial fibrillation. Patient has a high CHADS score with hypertensio n, dyslipidemia. Echocardiogram which was done today is normal. His TSH is normal. I would continu e the beta-blockers. Increase the metoprolol to 50 b.i.d. Discontinue his Norvasc. Start Stacia Babb, and I will leave that up to Dr. Cooley, but he can go home today and see him in the office in the near future. Patient is asymptomatic. His other problems including hypertension, dyslipidemia, gastroesophageal reflux disease are well controlled and stable. NB/MODL Voice ID: [id number] Report ID: [id number]
[2019-10-14] MEDS ORDERED: FAMOTIDINE 20 MG TAB PO SCH (09:00)
[2019-10-14 10:57] LABS: Vitamin D 1,25-Dihydroxy Total 31 pg/mL (18-72); Vitamin D,1,25-OH2, D2 <8 pg/mL
== END 2019-10-13 17:41 | disposition home or self-care (01) | DRG 389 ==
LOC: ER 22:03 → ERHOLD 10-10 01:57 → 2ND 10-10 02:26
PROVIDERS: ADMIT Internal Medicine; ATTEND Family Medicine
DX: K56.50 Intestinal adhesions [bands], unspecified as to partial versus complete obstruction (principal); N17.9 Acute kidney failure, unspecified; E78.5 Hyperlipidemia, unspecified; K21.9 Gastro-esophageal reflux disease without esophagitis; I48.91 Unspecified atrial fibrillation; E86.0 Dehydration; E83.39 Other disorders of phosphorus metabolism; E87.6 Hypokalemia; I12.9 Hypertensive chronic kidney disease with stage 1 through stage 4 chronic kidney disease, or unspecified chronic kidney disease; N18.9 Chronic kidney disease, unspecified; N14.1 Nephropathy induced by other drugs, medicaments and biological substances; T50.8X5A Adverse effect of diagnostic agents, initial encounter; Z79.899 Other long term (current) drug therapy; Z90.49 Acquired absence of other specified parts of digestive tract; Z90.81 Acquired absence of spleen
CPT/HCPCS: 36415; 74018; 74019; 74177; 76770; 80048; 80053; 80069; 80076; 82570; 82652; 82947; 83690; 83735; 83970; 84156; 84300; 84443; 85025; 93005; 93306; 96365; 96375; 99285; J0360; J0696; J1160; J1644; J1650; J2175; J2405; J7040; J7042; J7799; Q9967

== ENCOUNTER 2020-06-13 20:13 | Observation (INO) | payer OTHER, MEDICARE ==
[2020-06-13] MEDS ORDERED: MORPHINE 4 MG/ML SYR ONE (23:32)
[2020-06-13] MEDS ORDERED: ONDANSETRON 4 MG/2 ML VIAL ONE (23:32)
[2020-06-14 00:30] LABS: Albumin 3.6 g/dL (3.4-5.0); Bilirubin Direct 0.1 mg/dL (0-0.2); Bilirubin Total 0.5 mg/dL (0.2-1.0); Potassium 3.7 mmol/L (3.5-5.1)
[2020-06-14 00:41] LABS: Absolute Lymphocytes (CBC) 1.2 K/uL (0.7-4.9); Basophils % 0.2 % (0-1.3); Hematocrit 39.4 % (39.6-49.0); Lymphocytes % 5.2 % (15.3-44.8); MPV 10.3 fL (7.6-11.3); RBC Red Blood Cell Count 4.19 M/uL (4.33-5.43)
[2020-06-14 00:43] LABS: Blood Morphology Comment NOT SEEN (NOT SEEN); Platelet Estimate ADEQ
--- NOTE | 2020-06-14 01:09 | EDPHYS ---
Physician Documentation [facility] Name: Brennen Patel Age: 80 yrs Sex: Male : 1940 Arrival Date: 06/13/2020 Time: 20:19 Bed 2 Private MD: Eric Christianson R ED Physician Leonid Ndiaye HPI: 06/13 22:08 This 80 yrs old Male presents to ER via Ambulatory with complaints of jmm Abdominal Pain. 22:08 The patient presents with abdominal pain. Onset: The symptoms/episode began/occurred jmm gradually, today. The symptoms are described as achy. Modifying factors: The symptoms are alleviated by nothing, the symptoms are aggravated by nothing. This is an 80 year old male with a history of GERD, HLP, HTN, bowel obstructions that presents to the ED with abdominal pain and nausea. Similar pain to previous bowel obstructions. . Historical: - Allergies: 20:38 No Known Allergies; aj1 - Home Meds: 20:38 hydralazine 50 mg Oral tab 1 tab 4 times per day [Active]; latanoprost 0.005 % aj1 ophthalmic drop 1 drop once daily [Active]; Xarelto 20 mg oral tab 1 tab once daily [Active]; metoprolol tartrate 25 mg Oral tab 1 tab 2 times per day [Active]; pravastatin 40 mg Oral tab 1 tab once daily [Active]; - PMHx: 20:38 GERD; High Cholesterol; Hypertension; aj1 - Immunization history:: Adult Immunizations up to date. - Social history:: Smoking status: Patient/guardian denies using tobacco. ROS: 22:08 Constitutional: Negative for fever, chills, and weight loss, Cardiovascular: Negative jmm for chest pain, palpitations, and edema, Respiratory: Negative for shortness of breath, cough, wheezing, and pleuritic chest pain. 22:08 Abdomen/GI: Positive for abdominal pain. 22:08 All other systems are negative. Exam: 22:08 Constitutional: This is a well developed, well nourished patient who is awake, alert, jmm and in no acute distress. Head/Face: atraumatic. Eyes: EOMI, no conjunctival erythema appreciated ENT: Moist Mucus Membranes Neck: Trachea midline, Supple Chest/axilla: Normal chest wall appearance and motion. Cardiovascular: Regular rate and rhythm. No edema appreciated Respiratory: Normal respirations, no respiratory distress appreciated 22:08 Back: Normal ROM Skin: General appearance color normal MS/ Extremity: Moves all extremities, no obvious deformities appreciated, no edema noted to the lower extremities Neuro: Awake and alert, normal gait Psych: Behavior is normal, Mood is normal, Patient is cooperative and pleasant 22:08 Abdomen/GI: Inspection: abdomen appears normal, Bowel sounds: normal, Palpation: soft, in all quadrants, mild abdominal tenderness, in all quadrants. Vital Signs: 20:34 BP 188 / 86; Pulse 73; Resp 18; Temp 98.3(TE); Pulse Ox 99% on R/A; Weight 72.57 kg 1 (R); Height 5 ft. 9 in. (175.26 cm) (R); Pain 4/10; 22:11 BP 176 / 74; Pulse 65; Resp 18; Pulse Ox 97% on R/A; ea 23:36 BP 165 / 76; Pulse 63; Resp 18; Pulse Ox 97% on R/A; ea 20:34 Body Mass Index 23.63 (72.57 kg, 175.26 cm) [facility] MDM: 21:52 Patient medically screened. [facility] 06/14 01:07 Data reviewed: vital signs, nurses notes. Counseling: I had a detailed discussion with [facility] the patient and/or guardian regarding: the historical points, exam findings, and any diagnostic results supporting the discharge/admit diagnosis, lab results, radiology results, the need for further work-up and treatment in the hospital. ED course: I discussed the patient with Dave Busch whom accepted the patient to Dr. Llamas's service. . 06/13 21:53 Order name: Basic Metabolic Panel; Complete Time: 00:56 [facility] 06/13 21:53 Order name: CBC with Diff; Complete Time: 00:48 [facility] 06/13 21:53 Order name: Hepatic Function; Complete Time: 00:56 [facility] 06/13 21:53 Order name: Lipase; Complete Time: 00:56 [facility] 06/14 00:43 Order name: Manual Differential; Complete Time: 00:48 [facility] 06/14 09:07 Order name: COVID-19 ph 06/13 21:53 Order name: IV Saline Lock; Complete Time: 22:09 [facility] 06/13 21:53 Order name: CT Abd/Pelvis - IV Contrast Only [facility] 06/14 11:15 Order name: SARS-COV-2 RT PCR [facility] 06/14 12:38 Order name: CBC with Automated Diff [facility] 06/13 21:53 Order name: Labs collected and sent; Complete Time: 22:09 [facility] Administered Medications: 06/13 23:24 Drug: morphine 4 mg {Note: rass 1.} Route: IVP; Site: right antecubital; ea 06/14 01:00 Follow up: Response: No adverse reaction; Pain is decreased 06/13 23:24 Drug: Zofran (Ondansetron) 4 mg Route: IVP; Site: right antecubital; ea 06/14 01:37 Follow up: Response: No adverse reaction ea 01:25 Drug: Zosyn 3.375 grams Route: IVPB; Infused Over: 60 mins; Site: right antecubital; ea 02:30 Follow up: Response: No adverse reaction; IV Status: Completed infusion; IV Intake: ea 100ml 01:25 Drug: NS 0.9% 1000 ml Route: IV; Rate: 1 bolus; Site: right antecubital; ea 03:00 Follow up: Response: No adverse reaction; IV Status: Completed infusion; IV Intake: ea 1000ml Disposition: 06/14/20 01:09 Hospitalization ordered by Arjun Llamas for Inpatient Admission. Preliminary diagnosis are Generalized abdominal pain, Acute pancreatitis. - Bed requested for Telemetry/MedSurg (Inpatient). - Status is Inpatient Admission. dm5 - Condition is Stable. - Problem is new. - Symptoms have improved. Addendum: 06/16/2020 06:49 Co-signature as Attending Physician, Leonid Ndiaye MD I agree with the assessment and c stiles plan of care. Signatures: Dispatcher [employer] [facility] Dania Cast RN RN Qi Avila RN RN dm5 Webb, Martha, RN RN mw Woody, Diana, RN RN dw Anderson, Corey, MD MD cha Mickail, Joel, PA PA Azul Rico RN RN ea Botello, Elizabeth eb Corrections: (The following items were deleted from the chart) 06/14 01:15 01:09 Hospitalization Ordered by Arjun Llamas for Inpatient Admission. Preliminary mw diagnosis is Generalized abdominal pain; Acute pancreatitis. Bed requested for Telemetry/MedSurg (Inpatient). Status is Inpatient Admission. Condition is Stable. Problem is new. Symptoms have improved. jmm 13:56 01:15 06/14/2020 01:09 Hospitalization Ordered by Arjun Llamas for Inpatient dw Admission. Preliminary diagnosis is Generalized abdominal pain; Acute pancreatitis. Bed requested for [facility] ER HOLD. Status is Inpatient Admission. Condition is Stable. Problem is new. Symptoms have improved. mw 13:56 13:56 06/14/2020 01:09 Hospitalization Ordered by Arjun Llamas for Inpatient eb Admission. Preliminary diagnosis is Generalized abdominal pain; Acute pancreatitis. Bed requested for Telemetry/MedSurg (Inpatient). Status is Inpatient Admission. Condition is Stable. Problem is new. Symptoms have improved. dw 16:00 13:56 06/14/2020 01:09 Hospitalization Ordered by Arjun Llamas for Inpatient dm5 Admission. Preliminary diagnosis is Generalized abdominal pain; Acute pancreatitis. Bed requested for Telemetry/MedSurg (Inpatient). Status is Inpatient Admission. Condition is Stable. Problem is new. Symptoms have improved. eb
--- NOTE | 2020-06-14 01:09 | ER ---
Nurse's Notes [facility] Name: Brennen Patel Age: 80 yrs Sex: Male : 1940 Arrival Date: 06/13/2020 Time: 20:19 Bed 2 Private MD: Eric Christianson R Diagnosis: Generalized abdominal pain;Acute pancreatitis Presentation: 06/13 20:34 Chief complaint: Patient states: "After lunch I started getting a little gas on my aj1 stomach area so I've been trying to walk it off, but it ain't walked off yet. I've been in here before for my stomach and I had a blocked intestine ." Denies N/V/D. Denies fever. Coronavirus screen: Client denies travel out of the [place] in the last 14 days. At this time, the client does not indicate any symptoms associated with coronavirus-19. Ebola Screen: Patient denies travel to an Ebola-affected area in the 21 days before illness onset. Initial Sepsis Screen: Does the patient meet any 2 criteria? No. Patient's initial sepsis screen is negative. Does the patient have a suspected source of infection? Yes: Acute abdominal pain. Risk Assessment: Do you want to hurt yourself or someone else? Patient reports no desire to harm self or others. Onset of symptoms was June 13, 2020. 20:34 Method Of Arrival: Ambulatory aj1 20:34 Acuity: EL 3 aj1 Triage Assessment: 20:38 General: Appears in no apparent distress. uncomfortable, Behavior is calm, cooperative, aj1 appropriate for age. Pain: Complains of pain in abdomen. Neuro: Level of Consciousness is awake, alert, obeys commands, Oriented to person, place. Cardiovascular: Patient's skin is warm and dry. GI: Reports lower abdominal pain, upper abdominal pain, Patient currently denies diarrhea, nausea, vomiting. Historical: - Allergies: 20:38 No Known Allergies; aj1 - Home Meds: 20:38 hydralazine 50 mg Oral tab 1 tab 4 times per day [Active]; latanoprost 0.005 % aj1 ophthalmic drop 1 drop once daily [Active]; Xarelto 20 mg oral tab 1 tab once daily [Active]; metoprolol tartrate 25 mg Oral tab 1 tab 2 times per day [Active]; pravastatin 40 mg Oral tab 1 tab once daily [Active]; - PMHx: 20:38 GERD; High Cholesterol; Hypertension; aj1 - Immunization history:: Adult Immunizations up to date. - Social history:: Smoking status: Patient/guardian denies using tobacco. Screenin:09 Abuse screen: Denies threats or abuse. Nutritional screening: No deficits noted. ea Tuberculosis screening: No symptoms or risk factors identified. Fall Risk IV access (20 points). Assessment: 22:10 General: Appears in no apparent distress. Behavior is appropriate for age. Pain: ea Complains of pain in right upper quadrant. Neuro: Level of Consciousness is awake, alert, obeys commands, Oriented to person, place, time, situation. Cardiovascular: Patient's skin is warm and dry. Respiratory: Airway is patent Respiratory effort is even, unlabored, Respiratory pattern is regular, symmetrical. GI: Abdomen is non-distended, Bowel sounds present X 4 quads. Abd is soft X 4 quads. Derm: Skin is pink, warm \\T\\ dry. 23:36 Reassessment: Patient and/or family updated on plan of care and expected duration. Pain ea level reassessed. Patient is alert, oriented x 3, equal unlabored respirations, skin warm/dry/pink. 06/14 00:16 Reassessment: Patient and/or family updated on plan of care and expected duration. Pain ea level reassessed. Patient is alert, oriented x 3, equal unlabored respirations, skin warm/dry/pink. Returned from CT. 01:40 Reassessment: Patient and/or family updated on plan of care and expected duration. Pain ea level reassessed. Patient is alert, oriented x 3, equal unlabored respirations, skin warm/dry/pink. Pt admitted to ER hold. Vital Signs: 06/13 20:34 BP 188 / 86; Pulse 73; Resp 18; Temp 98.3(TE); Pulse Ox 99% on R/A; Weight 72.57 kg aj1 (R); Height 5 ft. 9 in. (175.26 cm) (R); Pain 4/10; 22:11 BP 176 / 74; Pulse 65; Resp 18; Pulse Ox 97% on R/A; ea 23:36 BP 165 / 76; Pulse 63; Resp 18; Pulse Ox 97% on R/A; ea 20:34 Body Mass Index 23.63 (72.57 kg, 175.26 cm) aj1 ED Course: 20:19 Patient arrived in ED. am2 20:19 Eric Christianson MD is Private Physician. am2 20:36 Triage completed. aj1 20:38 Arm band placed on Patient placed in waiting room, Patient notified of wait time. aj1 21:52 Catracho Gorman PA is PHCP. jmm 21:52 Leonid Ndiaye MD is Attending Physician. jmm 21:54 Azul Montana RN is Primary Nurse. ea 22:09 Inserted saline lock: 20 gauge in right wrist, using aseptic technique. Blood collected.ea 22:10 Patient has correct armband on for positive identification. Bed in low position. Call ea light in reach. Side rails up X2. 06/14 01:08 Arjun Llamas is Hospitalizing Provider. jmm 01:36 No provider procedures requiring assistance completed. Patient admitted, IV remains in ea place. Administered Medications: 06/13 23:24 Drug: morphine 4 mg {Note: rass 1.} Route: IVP; Site: right antecubital; ea 06/14 01:00 Follow up: Response: No adverse reaction; Pain is decreased ea 06/13 23:24 Drug: Zofran (Ondansetron) 4 mg Route: IVP; Site: right antecubital; ea 06/14 01:37 Follow up: Response: No adverse reaction ea 01:25 Drug: Zosyn 3.375 grams Route: IVPB; Infused Over: 60 mins; Site: right antecubital; ea 02:30 Follow up: Response: No adverse reaction; IV Status: Completed infusion; IV Intake: ea 100ml 01:25 Drug: NS 0.9% 1000 ml Route: IV; Rate: 1 bolus; Site: right antecubital; ea 03:00 Follow up: Response: No adverse reaction; IV Status: Completed infusion; IV Intake: ea 1000ml Intake: 02:30 IV: 100ml; Total: 100ml. ea 03:00 IV: 1000ml; Total: 1100ml. ea Outcome: 01:09 Decision to Hospitalize by Provider. jmm 01:36 Admitted to ER Hold. Please see [facility] for further documentation. ea 01:36 Condition: stable 01:36 Instructed on the need for admit. 16:00 Patient left the ED. dm5 Signatures: Dania Cast RN RN aj1 Qi Lr RN RN dm5 Catracho Gorman PA PA jmm Moreno, Amanda am2 Azul Montana RN RN ea
[2020-06-14] MEDS ORDERED: PIPER/TAZO/NS 3.375gm 3.375 GM/100 ML BAG ONE ×2 (01:21→11:01)
[2020-06-14] MEDS ORDERED: NA CHLORIDE 0.9% 1,000 ML ONE ×2 (01:35→11:01)
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
[2020-06-14 07:39] VITALS: BMI 23.6
[2020-06-14] MEDS ORDERED: MORPHINE 4 MG/ML SYR IV PRN (07:48)
[2020-06-14] MEDS ORDERED: NA CHLORIDE 0.9% 1,000 ML IV SCH (07:48)
[2020-06-14] MEDS ORDERED: ONDANSETRON 4 MG/2 ML VIAL IV PRN (07:48)
[2020-06-14] MEDS ORDERED: ACETAMINOPHEN 500 MG TAB PO PRN (07:48)
[2020-06-14] MEDS ORDERED: PIPER/TAZO/NS 3.375gm 3.375 GM/100 ML BAG IVPB SCH (09:30)
[2020-06-14 12:10] VITALS: BP 156/80; TEMP 97.9
[2020-06-14 12:34] LABS: Absolute Lymphocytes (CBC) 1.8 K/uL (0.7-4.9); Basophils % 0.7 % (0-1.3); Hematocrit 35.9 % (39.6-49.0); Lymphocytes % 13.8 % (15.3-44.8); MPV 9.9 fL (7.6-11.3); RBC Red Blood Cell Count 3.76 M/uL (4.33-5.43)
--- NOTE | 2020-06-14 14:05 | P.DS ---
Admission Date: 06/14/20 Discharge Date: 06/14/20 Primary Care Provider: Meghan Disposition: ROUTINE DISCHARGE Discharge Condition: FAIR Reason for Admission: Enteritis, Abdominal pain, Leukocytosis Consultations: None - Problems (1) Abdominal pain Onset Date: 02/05/17 Current Visit: Yes Status: Acute Qualifiers: Abdominal location: generalized Qualified Code(s): R10.84 - Generalized abdominal pain (2) Enteritis Current Visit: Yes Status: Acute (3) Leukocytosis Onset Date: 02/05/17 Current Visit: No Status: Acute (4) Functional constipation Current Visit: Yes Status: Acute Brief History of Present Illness: 80-year-old gentleman with a history of hypertension and hyperlipidemia, prior history bowel obstruction presented to the emergency department with a complaint of sudden onset of abdominal pain. CT abdomen and pelvis demonstrated findings suggestive of enteritis, no bowel obstruction. He had leukocytosis with white cell count elevated to 22,000. Lipase also elevated to 600. Patient was placed under observation for further management. Hospital Course: Patient was started on IV Zosyn for possible infective enteritis. White cell count rapidly decreased to 12,000. Elevated WBC count cold likely be secondary to stress or hemoconcentration. His abdominal pain resolved while in the ED. He had no nausea and vomiting. He tolerated liquid diet. CT scan of the abdomen also demonstrated constipation which could contribute to patient's symptoms. He is discharged with laxatives and stool softener. He is also discharged with oral antibiotics to continue treatment for enteritis. Vital Signs/Physical Exam: Temp Pulse Resp BP Pulse Ox 97.9 F 58 16 156/80 H 97 06/14/20 12:00 06/14/20 12:00 06/14/20 12:00 06/14/20 12:00 06/14/20 12:00 General: Alert, In no apparent distress, Oriented x3 Neck: Supple Respiratory: Clear to auscultation bilaterally, Normal air movement Cardiovascular: No edema, Regular rate/rhythm, Normal S1 S2 Gastrointestinal: Normal bowel sounds, Soft and benign, Non-distended, No tenderness Musculoskeletal: No swelling, No tenderness Integumentary: No rashes Neurological: Normal strength at 5/5 x4 extr Laboratory Data at Discharge: WBC 12.7 K/uL (4.3-10.9) H D 06/14/20 12:15 Hgb 12.0 g/dL (13.6-17.9) L 06/14/20 12:15 Hct 35.9 % (39.6-49.0) L 06/14/20 12:15 Plt Count 186 K/uL (152-406) 06/14/20 12:15 Sodium 139 mmol/L (136-145) 06/13/20 22:04 Potassium 3.7 mmol/L (3.5-5.1) 06/13/20 22:04 BUN 23 mg/dL (7-18) H 06/13/20 22:04 Creatinine 1.25 mg/dL (0.55-1.3) 06/13/20 22:04 Glucose 134 mg/dL (74-106) H 06/13/20 22:04 Total Bilirubin 0.5 mg/dL (0.2-1.0) 06/13/20 22:04 AST 19 U/L (15-37) 06/13/20 22:04 ALT 10 U/L (12-78) L 06/13/20 22:04 Alkaline Phosphatase 71 U/L (45-117) 06/13/20 22:04 Lipase 641 U/L (73-393) H 06/13/20 22:04 Home Medications: Hydralazine [Apresoline*] 50 mg PO QID 07/27/12 Pravastatin [Pravachol*] 40 mg PO BEDTIME 07/27/12 Latanoprost Ophth [Xalatan 0.005%*] 1 drop EACH EYE BEDTIME 08/05/17 Polyethylene Glycol 3350 [Miralax] 17 gm PO DAILY #30 powd.pack 10/12/19 Bisacodyl [Dulcolax] 10 mg RC DAILY #1 supp 06/14/20 Ciprofloxacin HCl [Cipro 500 MG Tablet] 500 mg PO BID #10 tab 06/14/20 Metoprolol Tartrate [Lopressor*] 25 mg PO BID 06/14/20 Rivaroxaban [Xarelto] 20 mg PO DAILY AT SUPPER 06/14/20 Sennosides [Senokot] 17.2 mg PO BID #120 tablet 06/14/20 metroNIDAZOLE [Flagyl*] 500 mg PO Q8H #15 tablet 06/14/20 New Medications: Ciprofloxacin HCl [Cipro 500 MG Tablet] 500 mg PO BID #10 tab Bisacodyl [Dulcolax] 10 mg RC DAILY #1 supp metroNIDAZOLE [Flagyl*] 500 mg PO Q8H #15 tablet Sennosides [Senokot] 17.2 mg PO BID #120 tablet Diet: AHA Activity: Ad juana Followup: NONE,NONE [Primary Care Provider] - 1-2 Weeks
--- NOTE | 2020-06-16 16:51 | RAD REPORT ---
EXAM DESCRIPTION: CT - Abdomen Pelvis W Contrast - 06/14/2020 6:42 am CLINICAL HISTORY: The patient is 80 years old and is Male; abdominal pain TECHNIQUE: Axial computed tomography images of the abdomen and pelvis with intravenous contrast. S agittal and coronal reformatted images were created and reviewed. This CT exam was performed using one or more of the following dose reduction techniques: automated exposure control, adjustment of t he mA and/or kV according to patient size, and/or use of iterative reconstruction technique. COMPARISON: CT of the abdomen and pelvis October 10, 2019 FINDINGS: LUNG BASES: Unremarkable. No mass. No consolidation. MEDIASTINUM: A moderate sized hiatal hernia is present containing small bowel. ABDOMEN: LIVER: The liver is mildly prominent. GALLBLADDER AND BILE DUCTS: No calcified stones. No ductal dilation. PANCREAS: Fatty infiltration of the pancreas is noted. SPLEEN: The spleen is surgically absent. Splenule is present within the left upper quadrant. ADRENALS: Unremarkable. No mass. KIDNEYS AND URETERS: Right intrarenal calcifications are present. The kidneys enhance symmetrical ly. There is no hydronephrosis or hydroureter of either kidney. No obstructing renal or ureteral calc ulus is seen. STOMACH AND BOWEL: The stomach is distended and fluid-filled. The proximal and mid small bowel ar e fluid-filled and minimally prominent. The remainder the small bowel is decompressed. A moderate jennifer unt of stool is present throughout colon. There is no mucosal thickening or evidence of bowel obstruc tion. Several scattered colonic diverticula are present without surrounding inflammation. PELVIS: APPENDIX: No findings to suggest acute appendicitis. BLADDER: Unremarkable. No mass. REPRODUCTIVE: Unremarkable as visualized. ABDOMEN and PELVIS: INTRAPERITONEAL SPACE: Unremarkable. No free air. No significant fluid collection. BONES/JOINTS: Healed bilateral inferior pubic rami and the left superior pubic rami fractures are present. Scoliotic curvature of the spine is present. Multilevel degenerative change of the bones is noted. SOFT TISSUES: Small fat-containing supraumbilical hernia is present. VASCULATURE: Atherosclerosis of the vasculature is present. The vessels are normal in caliber. No abdominal aortic aneurysm. LYMPH NODES: Unremarkable. No enlarged lymph nodes. IMPRESSION: 1. Minimally prominent fluid-filled proximal and mid small bowel loops suggesting an e nteritis. There is no overt obstruction at this time. 2. Moderate stool burden and colonic diverticulosis. 3. Large hiatal hernia containing a portion of the pancreas and several small bowel loops. Electronically signed by: Ade Ortiz MD 06/14/2020 12:50 AM REGISTERED APPRAISER Due to temporary technical issues with the PACS/Fluency reporting system, reports are being signed by the in house radiologists without review as a courtesy to insure prompt reporting. The interpreting radiologist is fully responsible for the content of the report.
[2020-06-17 15:03] VITALS: O2SAT 97
== END 2020-06-14 17:14 | disposition home or self-care (01) ==
LOC: ER 20:13 → ERHOLD 06-14 06:12 → 2ND 06-14 15:04
PROVIDERS: ADMIT Internal Medicine; ATTEND Internal Medicine
DX: K52.9 Noninfective gastroenteritis and colitis, unspecified (principal); K59.04 Chronic idiopathic constipation; R10.84 Generalized abdominal pain; D72.825 Bandemia; I10 Essential (primary) hypertension; E78.5 Hyperlipidemia, unspecified; Z20.828 Contact with and (suspected) exposure to other viral communicable diseases; K21.9 Gastro-esophageal reflux disease without esophagitis; E78.00 Pure hypercholesterolemia, unspecified
CPT/HCPCS: 96365; 85025 ×2; 80048; 36415; 80076; 83690; 74177; 96375; 99285; U0003; Q9967; J2543 ×2; J7030 ×2; J2405; G0378

== ENCOUNTER 2020-06-19 22:57 | Emergency (ER) | payer OTHER, MEDICARE ==
[2020-06-19] MEDS ORDERED: NA CHLORIDE 0.9% 500 ML ONE (23:18)
[2020-06-19] MEDS ORDERED: METOPROLOL TARTRATE 5 MG/5 ML INJ IV ONE (23:18)
[2020-06-19 23:20] LABS: Absolute Lymphocytes (CBC) 1.8 K/uL (0.7-4.9); Basophils % 0.4 % (0-1.3); Hematocrit 23.5 % (39.6-49.0); Lymphocytes % 8.6 % (15.3-44.8); MPV 9.8 fL (7.6-11.3); RBC Red Blood Cell Count 2.46 M/uL (4.33-5.43)
[2020-06-19 23:21] LABS: Protime INR 2.94
[2020-06-19 23:38] LABS: Bilirubin Direct 0.1 mg/dL (0-0.2); Bilirubin Total 0.3 mg/dL (0.2-1.0); Potassium 3.9 mmol/L (3.5-5.1)
[2020-06-19 23:39] LABS: Albumin 2.5 g/dL (3.4-5.0); Magnesium 1.9 mg/dL (1.8-2.4); Protein, Total 5.6 g/dL (6.4-8.2); Troponin (Emerg Dept Use Only) 0.03 ng/mL (0.0-0.045)
[2020-06-19 23:54] LABS: Blood Morphology Comment NOTED (NOT SEEN); Burr Cells 2+; Platelet Estimate ADEQ
[2020-06-20] MEDS ORDERED: NA CHLORIDE 0.9% 250 ML ONE ×2 (00:10→01:41)
[2020-06-20] MEDS ORDERED: PANTOPRAZOLE 40 MG INJ ONE (00:10)
[2020-06-20] MEDS ORDERED: CEFTRIAXONE/SWI 1gm 1 GM/10 ML SYR ONE (00:10)
--- NOTE | 2020-06-20 00:13 | EDPHYS ---
Physician Documentation [facility] Name: Brennen Patel Age: 80 yrs Sex: Male : 1940 Arrival Date: 06/19/2020 Time: 22:58 Bed 4 Private MD: ED Physician Leonid Ndiaye HPI: 06/19 23:30 This 80 yrs old Male presents to ER via EMS with complaints of Chest Pain, ma2 Possible Cardiac Related. 23:30 This 80 yrs old Male presents to ER via EMS with complaints of palpitation, ma2 lightheadedness . 23:30 Onset: gradually, 1 day(s) ago. Associated signs and symptoms: Pertinent positives: ma2 Pertinent negatives: abdominal pain, diaphoresis, headache, lower extremity swelling, syncope, vomiting. Severity of pain: At its worst the pain was moderate in the emergency department the pain has resolved. The patient has experienced similar episodes in the past, It is unknown whether or not the patient has had similar symptoms in the past. Historical: - Allergies: 23:08 No Known Allergies; rv - Home Meds: 23:12 hydralazine 50 mg Oral tab 1 tab 4 times per day [Active]; latanoprost 0.005 % mg2 ophthalmic drop 1 drop once daily [Active]; metoprolol tartrate 25 mg Oral tab 1 tab 2 times per day [Active]; pravastatin 40 mg Oral tab 1 tab once daily [Active]; Xarelto 20 mg Oral tab 1 tab once daily [Active]; - PMHx: 23:08 GERD; High Cholesterol; Hypertension; rv - PSHx: 23:08 None; rv - Immunization history:: Adult Immunizations up to date. - Social history:: Smoking status: Patient denies any tobacco usage or history of. Patient/guardian denies using alcohol, street drugs, The patient lives with family. - Family history:: not pertinent. ROS: 23:30 Constitutional: Negative for fever, chills, and weight loss. ma2 23:30 All other systems are negative. 06/20 00:11 Abdomen/GI: Positive for black/tarry stool. ma2 Exam: 06/19 23:30 Constitutional: This is a well developed, well nourished patient who is awake, alert, ma2 and in no acute distress. Head/Face: Normocephalic, atraumatic. Eyes: Pupils equal round and reactive to light, extra-ocular motions intact. Lids and lashes normal. Conjunctiva and sclera are non-icteric and not injected. Cornea within normal limits. Periorbital areas with no swelling, redness, or edema. ENT: Nares patent. No nasal discharge, no septal abnormalities noted. Tympanic membranes are normal and external auditory canals are clear. Oropharynx with no redness, swelling, or masses, exudates, or evidence of obstruction, uvula midline. Mucous membranes moist. Neck: Trachea midline, no thyromegaly or masses palpated, and no cervical lymphadenopathy. Supple, full range of motion without nuchal rigidity, or vertebral point tenderness. No Meningismus. Chest/axilla: Normal chest wall appearance and motion. Nontender with no deformity. No lesions are appreciated. Cardiovascular: tachycardia and irregular rethym rhythm with a normal S1 and S2. No gallops, murmurs, or rubs. Normal PMI, no JVD. No pulse deficits. Respiratory: Lungs have equal breath sounds bilaterally, clear to auscultation and percussion. No rales, rhonchi or wheezes noted. No increased work of breathing, no retractions or nasal flaring. Abdomen/GI: Soft, non-tender, with normal bowel sounds. No distension or tympany. No guarding or rebound. No evidence of tenderness throughout. MS/ Extremity: Pulses equal, no cyanosis. Neurovascular intact. Full, normal range of motion. Neuro: Awake and alert, GCS 15, oriented to person, place, time, and situation. Cranial nerves II-XII grossly intact. Motor strength 5/5 in all extremities. Sensory grossly intact. Cerebellar exam normal. Normal gait. Vital Signs: 23:06 BP 112 / 72; Pulse 144; Resp 22; Temp 97.5; Pulse Ox 99% on R/A; rv 23:10 BP 97 / 56; Pulse 127; Resp 18; Pulse Ox 99% on 2 lpm NC; Weight 72.57 kg; Height 5 ft. mg2 8 in. (172.72 cm); Pain 0/10; 23:53 BP 88 / 59; Pulse 134; Resp 18; Pulse Ox 100% on 2 lpm NC; mg2 06/20 00:37 BP 86 / 51; Pulse 130; Resp 18; Pulse Ox 100% on R/A; mg2 00:57 BP 86 / 53; Pulse 115; Resp 18; Pulse Ox 100% on R/A; mg2 01:55 BP 95 / 59; Pulse 130; Resp 18; Temp 98; Pulse Ox 100% on R/A; mg2 02:46 BP 87 / 63; Pulse 132; Resp 18; Pulse Ox 100% on R/A; mg2 02:54 BP 95 / 81; Pulse 131; Resp 18; Temp 98.3; Pulse Ox 100% on R/A; mg2 03:06 BP 107 / 83; Pulse 80; Resp 18; Pulse Ox 100% on R/A; mg2 04:24 BP 94 / 50; Pulse 78; Resp 18; Temp 98.5; Pulse Ox 100% on R/A; mg2 05:28 BP 100 / 48; Pulse 78; Resp 18; Temp 98.7; Pulse Ox 100% on R/A; mg2 06:27 BP 120 / 52; Pulse 73 MON; Resp 17; Pulse Ox 100% on R/A; sg 08:00 BP 105 / 53; Pulse 79; Resp 18 S; Temp 97.5(TE); Pulse Ox 100% on R/A; Pain 0/10; aa5 08:40 BP 140 / 69; Pulse 80; Resp 16 S; Pulse Ox 100% on R/A; aa5 06/19 23:10 Body Mass Index 24.33 (72.57 kg, 172.72 cm) mg2 06:27 Sinus Rhythm sg MDM: 06/19 23:00 Patient medically screened. ma2 23:30 Differential diagnosis: abnormal EKG, gastroesophageal reflux disease (GERD), stable ma2 angina. 06/20 00:11 ED course: patient reports melena and has hb drop to 7 from 13 he is in hemorrhagic ma2 shock at this time, .. will transfer for higher level of care as no gi available in our hospital . 00:11 Data reviewed: vital signs, nurses notes, lab test result(s), EKG, radiologic studies. ma2 Counseling: I had a detailed discussion with the patient and/or guardian regarding: the historical points, exam findings, and any diagnostic results supporting the discharge/admit diagnosis, the presence of at least one elevated blood pressure reading (>120/80) during this emergency department visit, lab results, radiology results, the need to transfer to another facility. 07:39 Patient medically screened. [facility] 06/19 23:00 Order name: Basic Metabolic Panel; Complete Time: 23:47 ma2 06/19 23:00 Order name: CBC with Diff; Complete Time: 00:27 ma2 06/19 23:00 Order name: LFT's; Complete Time: 23:47 ma2 06/19 23:00 Order name: Magnesium; Complete Time: 23:47 ma2 06/19 23:00 Order name: NT PRO-BNP; Complete Time: 23:47 ma2 06/19 23:00 Order name: PT-INR; Complete Time: 23:42 ma2 06/19 23:00 Order name: Troponin (emerg Dept Use Only); Complete Time: 23:47 ma2 06/19 23:00 Order name: Lipase; Complete Time: 23:47 ma2 06/19 23:33 Order name: Lactate; Complete Time: 00:27 rv 06/19 23:33 Order name: Procalcitonin; Complete Time: 04:38 06/19 23:33 Order name: Blood Culture Adult (2) 06/19 23:33 Order name: Type And Screen 06/19 23:00 Order name: XRAY Chest (1 view) [facility] 06/19 23:00 Order name: EKG; Complete Time: 23:01 ca2 06/19 23:00 Order name: Cardiac monitoring; Complete Time: 23:08 ca2 06/19 23:00 Order name: EKG - Nurse/Tech; Complete Time: 23:08 ca2 06/19 23:00 Order name: IV Saline Lock; Complete Time: 23:08 ca2 06/19 23:46 Order name: Packed RBC Leukored [facility] 06/19 23:46 Order name: Manual Differential; Complete Time: 00:27 [facility] 06/20 01:17 Order name: SARS-COV-2 RT PCR; Complete Time: 04:38 EDMT 06/20 03:11 Order name: Lactate Sepsis 2 HR Follow-up; Complete Time: 04:38 EDMT 06/20 04:38 Order name: CBC w/o diff; Complete Time: 05:32 ma2 06/19 23:00 Order name: Labs collected and sent; Complete Time: 23:08 ca2 06/19 23:00 Order name: O2 Per Protocol; Complete Time: 23:08 ca2 06/19 23:00 Order name: O2 Sat Monitoring; Complete Time: 23:09 ma2 06/19 23:35 Order name: Transfuse: 2 units pRBC (each unit over 1 hour); Complete Time: 23:52 ma2 Administered Medications: 06/19 23:05 Drug: Metoprolol 5 mg Route: IVP; Site: left antecubital; mg2 06/20 00:39 Follow up: Response: No adverse reaction mg2 06/19 23:08 Drug: NS 0.9% 500 ml Route: IV; Rate: 1 bolus; Site: left antecubital; mg2 06/20 00:39 Follow up: Response: No adverse reaction; IV Status: Completed infusion; IV Intake: mg2 500ml 00:05 Drug: Pantoprazole 8 mg/hr Route: IV; Rate: 25 ml/hr; Site: left antecubital; mg2 09:05 Follow up: IV Status: Infusion continued upon transfer aa5 00:05 Drug: Pantoprazole 80 mg Route: IVP; Site: left antecubital; mg2 02:20 Follow up: Response: No adverse reaction mg2 00:06 Drug: Rocephin 1 grams Route: IV; Rate: calculated rate; Site: left antecubital; mg2 02:20 Follow up: Response: No adverse reaction; IV Status: Completed infusion mg2 00:12 Drug: AZITHromycin 500 mg Route: IVPB; Infused Over: 1 hrs; Site: left antecubital; mg2 02:20 Follow up: Response: No adverse reaction; IV Status: Completed infusion; IV Intake: mg2 250ml Disposition: 06/20/20 00:13 Transfer ordered to Other Acute Care Facility. Diagnosis is Gastrointestinal hemorrhage, unspecified. - Reason for transfer: Higher level of care. - Accepting physician is OSH. - Condition is Critical. - Problem is new. - Symptoms are unchanged. Signatures: Dispatcher [employer] EDLeonid Amanda MD MD cha Waters, Shelly, PAINT AND TABLE EDGER-C PAINT AND TABLE EDGER-Csnw Noris Kennedy RN RN aa5 Mac Pride FNP-C PAINT AND TABLE EDGER-Cla1 Linda Gilliland MD MD ma2 Charlie Grijalva RN RN mg2 Tramaine Brunson RN RN rv Corrections: (The following items were deleted from the chart) 00:13 00:13 06/20/2020 00:13 Transfer ordered to Other Acute Care Facility. Diagnosis is ma2 Gastrointestinal hemorrhage, unspecified. Reason for transfer: Higher level of care. Accepting physician is OSH. Condition is Stable. Problem is new. Symptoms are unchanged. ma2 00:20 12 23:34 BLOOD CULTURE*+BA.LAB.BRZ ordered. EDMS EDMS 06/20 00:23 12 23:34 CORONAVIRUS+MR.LAB.BRZ ordered. EDMT EDMT 06/20 09:14 00:13 06/20/2020 00:13 Transfer ordered to Other Acute Care Facility. Diagnosis is aa5 Gastrointestinal hemorrhage, unspecified. Reason for transfer: Higher level of care. Accepting physician is OSH. Condition is Critical. Problem is new. Symptoms are unchanged. ma2
--- NOTE | 2020-06-20 00:13 | ER ---
Nurse's Notes [facility] Name: Brennen Patel Age: 80 yrs Sex: Male : 1940 Arrival Date: 06/19/2020 Time: 22:58 Bed 4 Private MD: Diagnosis: Gastrointestinal hemorrhage, unspecified Presentation: 06/19 23:06 Chief complaint: EMS states: DIAPHORTIC, DIZZINESS, AND CHEST PAIN ON THE WAY TO THE BATHROOM. Coronavirus screen: Client denies travel out of the [place] in the last 14 days. At this time, the client does not indicate any symptoms associated with coronavirus-19. Ebola Screen: No symptoms or risks identified at this time. Initial Sepsis Screen: Does the patient meet any 2 criteria? No. Patient's initial sepsis screen is negative. Does the patient have a suspected source of infection? No. Patient's initial sepsis screen is negative. Risk Assessment: Do you want to hurt yourself or someone else? Patient reports no desire to harm self or others. Onset of symptoms was June 19, 2020 at 22:00. 23:06 Method Of Arrival: EMS: [facility] 23:06 Acuity: EL 1 Triage Assessment: 23:08 General: Appears comfortable, Behavior is calm, cooperative. Pain: Complains of pain in rv chest. EENT: No signs and/or symptoms were reported regarding the EENT system. Neuro: Level of Consciousness is awake, alert, obeys commands, Oriented to person, place, time, situation. Cardiovascular: Patient's skin is warm and dry. Rhythm is atrial fibrillation with rapid ventricular response. Respiratory: Airway is patent Respiratory effort is even, unlabored. Derm: Skin is intact. Historical: - Allergies: 23:08 No Known Allergies; rv - Home Meds: 23:12 hydralazine 50 mg Oral tab 1 tab 4 times per day [Active]; latanoprost 0.005 % mg2 ophthalmic drop 1 drop once daily [Active]; metoprolol tartrate 25 mg Oral tab 1 tab 2 times per day [Active]; pravastatin 40 mg Oral tab 1 tab once daily [Active]; Xarelto 20 mg Oral tab 1 tab once daily [Active]; - PMHx: 23:08 GERD; High Cholesterol; Hypertension; rv - PSHx: 23:08 None; rv - Immunization history:: Adult Immunizations up to date. - Social history:: Smoking status: Patient denies any tobacco usage or history of. Patient/guardian denies using alcohol, street drugs, The patient lives with family. - Family history:: not pertinent. Screenin:08 Abuse screen: Denies threats or abuse. Denies injuries from another. Nutritional rv screening: No deficits noted. Tuberculosis screening: No symptoms or risk factors identified. Fall Risk None identified. Assessment: 23:09 Pain: Pain does not radiate. Pain began suddenly. rv 23:09 General: Appears in no apparent distress. comfortable, Behavior is calm, cooperative. mg2 Pain: Denies pain. Neuro: Level of Consciousness is awake, alert, obeys commands, Oriented to person, place, time, situation. Cardiovascular: Capillary refill < 3 seconds Patient's skin is warm and dry. Rhythm is atrial fibrillation with rapid ventricular response. Respiratory: Airway is patent Respiratory effort is even, unlabored. GI: Reports dark stool. : No signs and/or symptoms were reported regarding the genitourinary system. EENT: No signs and/or symptoms were reported regarding the EENT system. Derm: Skin is intact, is healthy with good turgor, Skin is normal, red. Musculoskeletal: Circulation, motion, and sensation intact. Capillary refill < 3 seconds. 06/20 00:37 Reassessment: Patient appears in no apparent distress at this time. mg2 00:37 Reassessment: patient informed about the plan for transfer and he agreed together with [facility] the daughter. he signed the informed consent for blood transfusion. 03:12 Reassessment: patient defecated with moderate amount of stool. melena noted. mg2 03:57 Reassessment: provider informed the patient and daughter that there is no available [facility] to take the patient now. Jo-Ann- [phone] ( daughter). 04:25 Reassessment: Patient appears in no apparent distress at this time. Patient and/or mg2 family updated on plan of care and expected duration. Pain level reassessed. 04:40 Reassessment: patient sleeping. mg2 05:30 Reassessment: Patient appears in no apparent distress at this time. Patient and/or mg2 family updated on plan of care and expected duration. Pain level reassessed. 06:31 Reassessment: Patient appears in no apparent distress at this time. Patient and/or mg2 family updated on plan of care and expected duration. Pain level reassessed. 07:20 Reassessment: Patient is alert, oriented x 3, equal unlabored respirations, skin aa5 warm/dry/pink. Patient denies pain at this time. Patient states feeling better. Patient states symptoms have improved. Pt denies any complaints at this time. . 07:34 Reassessment: Pt assisted with bedside commode, pt able to transfer from bed to bedside aa5 commode without any complaints. Soft black stool noted and pt voided x 1. Pt assisted back into bed. Pt now sitting up in bed. Awaiting transfer approval. . 08:05 Reassessment: Received number to call report to [facility], now attempting to call aa5 report to nurse. . 08:20 Reassessment: Report given to Beatriz (nurse at [facility]). Now awaiting EMS for aa5 transfer, pt notified of wait time. . 08:20 Reassessment: Patient is alert, oriented x 3, equal unlabored respirations, skin aa5 warm/dry/pink. 09:00 Reassessment: Patient is alert, oriented x 3, equal unlabored respirations, skin aa5 warm/dry/pink. Vital Signs: 06/19 23:06 BP 112 / 72; Pulse 144; Resp 22; Temp 97.5; Pulse Ox 99% on R/A; rv 23:10 BP 97 / 56; Pulse 127; Resp 18; Pulse Ox 99% on 2 lpm NC; Weight 72.57 kg; Height 5 ft. mg2 8 in. (172.72 cm); Pain 0/10; 23:53 BP 88 / 59; Pulse 134; Resp 18; Pulse Ox 100% on 2 lpm NC; mg2 06/20 00:37 BP 86 / 51; Pulse 130; Resp 18; Pulse Ox 100% on R/A; mg2 00:57 BP 86 / 53; Pulse 115; Resp 18; Pulse Ox 100% on R/A; mg2 01:55 BP 95 / 59; Pulse 130; Resp 18; Temp 98; Pulse Ox 100% on R/A; mg2 02:46 BP 87 / 63; Pulse 132; Resp 18; Pulse Ox 100% on R/A; mg2 02:54 BP 95 / 81; Pulse 131; Resp 18; Temp 98.3; Pulse Ox 100% on R/A; mg2 03:06 BP 107 / 83; Pulse 80; Resp 18; Pulse Ox 100% on R/A; mg2 04:24 BP 94 / 50; Pulse 78; Resp 18; Temp 98.5; Pulse Ox 100% on R/A; mg2 05:28 BP 100 / 48; Pulse 78; Resp 18; Temp 98.7; Pulse Ox 100% on R/A; mg2 06:27 BP 120 / 52; Pulse 73 MON; Resp 17; Pulse Ox 100% on R/A; sg 08:00 BP 105 / 53; Pulse 79; Resp 18 S; Temp 97.5(TE); Pulse Ox 100% on R/A; Pain 0/10; aa5 08:40 BP 140 / 69; Pulse 80; Resp 16 S; Pulse Ox 100% on R/A; aa5 06/19 23:10 Body Mass Index 24.33 (72.57 kg, 172.72 cm) mg2 06:27 Sinus Rhythm sg ED Course: 06/19 22:58 Patient arrived in ED. rg4 23:00 Linda Gilliland MD is Attending Physician. ma2 23:02 Charlie Grijalva, BHUPINDER is Primary Nurse. mg2 23:07 Triage completed. rv 23:09 Arm band placed on right wrist. rv 23:09 Patient has correct armband on for positive identification. Placed in gown. Bed in low rv position. Call light in reach. Side rails up X 1. groundwater monitoring technician on. Pulse ox on. NIBP on. 23:09 Maintain EMS IV. Dressing intact. Good blood return noted. Site clean \\T\\ dry. Gauge \\T\\ rv site: G20 LAC. Patient maintains SpO2 saturation greater than 95% on room air. 23:11 No provider procedures requiring assistance completed. mg2 23:22 XRAY Chest (1 view) In Process Unspecified. EDMS 23:51 initiated a transfer with Chantale from [facility]. mw2 06/20 00:05 Inserted saline lock: 20 gauge in left hand, using aseptic technique. Blood collected. mg2 00:17 Chantale from [facility] called to inform us that they will have to decline mw2 due to capacity. 00:20 initiated a transfer with Chitra Granado from [facility]. mw2 00:26 Lila Evans FNP-C is PHCP. snw 01:11 Chitra Granado from [facility] called back to inform us that mw2 [facility] declined due to capacity. 01:22 Called [facility] spoke to Silvestre Corona to have him initiate a mw2 transfer to [facility]. 01:30 Cleaned of incontinence. Linen changed. mg2 01:42 Chitra Granado called back to inform us that [facility] denied due to mw2 capacity. 01:46 initiated a transfer with Paula from [facility] transfer center. She stated that "the only ICU mw2 beds that [facility] has available is in [facility].". 01:58 initiated a transfer with Orquidea Torres from [facility] transfer [place]. She informed me that mw2 "we currently have no ICU beds available but we will take do the patients information.". 02:06 initiated a transfer with Isauro from [facility] transfer [place] they denied due to mw2 bed capacity. 02:11 initiated a transfer with Emiliana from [facility] transfer [place] they denied due to bed mw2 capacity. 02:14 Chitra Granado from [facility] called to inform us that [facility] declined due to bed capacity. 02:43 Chitra Granado from [facility] called to inform us that [address] declined due to bed capacity. 03:01 initiated a transfer with Jaime Emerson the supervisor wash house from [facility] he mw2 told me to "fax the patients clinicals to [phone] and he will get back to us.". 03:26 Chitra Granado from [facility] called to inform us that [address] denied due to bed capacity. 04:03 Chitra Granado from [facility] called to inform us that [address] declined due to bed capacity. 06:52 Called Chantale from [facility] to see if they can find a tele bed for the mw2 patient she will check bed availability. 07:18 Attending Physician role handed off by Linda Gilliland MD cha 07:18 Leonid Ndiaye MD is Attending Physician. stacey 09:05 Patient transferred, IV remains in place. aa5 Administered Medications: 12/23 23:05 Drug: Metoprolol 5 mg Route: IVP; Site: left antecubital; mg2 06/20 00:39 Follow up: Response: No adverse reaction mg2 06/19 23:08 Drug: NS 0.9% 500 ml Route: IV; Rate: 1 bolus; Site: left antecubital; mg2 06/20 00:39 Follow up: Response: No adverse reaction; IV Status: Completed infusion; IV Intake: mg2 500ml 00:05 Drug: Pantoprazole 8 mg/hr Route: IV; Rate: 25 ml/hr; Site: left antecubital; mg2 09:05 Follow up: IV Status: Infusion continued upon transfer aa5 00:05 Drug: Pantoprazole 80 mg Route: IVP; Site: left antecubital; mg2 02:20 Follow up: Response: No adverse reaction mg2 00:06 Drug: Rocephin 1 grams Route: IV; Rate: calculated rate; Site: left antecubital; mg2 02:20 Follow up: Response: No adverse reaction; IV Status: Completed infusion mg2 00:12 Drug: AZITHromycin 500 mg Route: IVPB; Infused Over: 1 hrs; Site: left antecubital; mg2 02:20 Follow up: Response: No adverse reaction; IV Status: Completed infusion; IV Intake: mg2 250ml Medication: 05:28 Blood products: PRBCs X 2 units given. no reactions noted. patient tolerated the mg2 transfusion See transfusion record. Intake: 00:39 IV: 500ml; Total: 500ml. mg2 02:20 IV: 250ml; Total: 750ml. mg2 Outcome: 00:13 ER care complete, transfer ordered by MD. ness 09:05 Transferred by ground EMS to [facility], Transfer form completed. aa5 X-rays sent w/ patient. Note: Report given to Donta with [facility]. 09:05 Condition: stable 09:05 Instructed on the need for transfer, Demonstrated understanding of instructions. 09:14 Patient left the ED. aa5 Signatures: Dispatcher [employer] EDMS Idris Avina RN RN sg Anderson, Corey, MD MD cha Waters, Shelly, MAJOR ACCOUNT REPRESENTATIVE-C MAJOR ACCOUNT REPRESENTATIVE-Csnw Noris Kennedy RN RN aa5 Rissa Nina rg4 Linda Gilliland MD MD ma2 GlendaleAmandaDena mw2 Charlie Grijalva, RN RN mg2 Tramaine Brunson, RN RN rv Corrections: (The following items were deleted from the chart) 00:37 1223 23:09 Derm: Skin is intact, is healthy with good turgor, Skin is pink, warm \\T\\ mg2 dry. normal, mg2 06/20 02:47 00:37 BP 86 / 51; Pulse 130bpm; Resp 18bpm; Pulse Ox 100% 2 lpm Nasal Cannula; mg2 mg2 02:47 00:57 BP 86 / 53; Pulse 115bpm; Resp 18bpm; Pulse Ox 100% 2 lpm Nasal Cannula; mg2 mg2 03:36 02:06 initiated a transfer with Isauro from [facility] transfer center they denied due mw2 to capacity mw2 03:36 02:11 initiated a transfer with Emiliana from [facility] transfer center they denied due to mw2 capacity mw2
[2020-06-20] MEDS ORDERED: AZITHROMYCIN 500 MG INJ IVPB ONE (00:22)
[2020-06-20 05:27] LABS: Hematocrit 24.9 % (39.6-49.0); RBC Red Blood Cell Count 2.81 M/uL (4.33-5.43)
--- NOTE | 2020-06-20 08:36 | RAD REPORT ---
EXAM DESCRIPTION: Pratibha Single View06/19/2020 11:22 pm CLINICAL HISTORY: Chest pain COMPARISON: 2017 FINDINGS: The lungs appear clear of acute infiltrate. The heart is normal size. Large hiatal hernia IMPRESSION: No acute abnormalities displayed
[2020-06-20 09:23] VITALS: O2SAT 100
[2020-06-20 09:36] VITALS: BP 105/53; TEMP 97.5
== END 2020-06-20 09:14 ==
LOC: ER 22:57
PROC: 30233N1 Transfusion of Nonautologous Red Blood Cells into Peripheral Vein, Percutaneous Approach (ICD-10-PCS; principal; 2020-06-20)
DX: K92.2 Gastrointestinal hemorrhage, unspecified (principal); R57.8 Other shock; I10 Essential (primary) hypertension; E78.00 Pure hypercholesterolemia, unspecified; Z79.01 Long term (current) use of anticoagulants; Z20.828 Contact with and (suspected) exposure to other viral communicable diseases
CPT/HCPCS: 96365; 96367; 96361; 93005; 87040; 85025; 80048; 36415 ×2; 86900; 83735; 86850; 85610; 86901; 80076; 83605 ×2; 85027; 84484; 83690; 84145; 83880; 71045; 36430 ×2; 96375; 99291; 96366; U0003; J0456; P9016 ×2; J7050; J7040

== ENCOUNTER 2020-07-22 18:13 | Emergency (ER) | payer OTHER, MEDICARE ==
--- OUTSIDE RECORDS SUMMARY | 2020-07-22 18:16 | XMS REPORT | Clinical Summary ---
:1940 Author Organization [facility] Address [address] [place] [address] Care Team Providers Name Role Phone Unavailable Primary Care Provider Unavailable Allergies No Known Allergies Medications Medication Sig Dispensed Refills Start Date End Date Status latanoprost INT 1 GTT IN 0 05/18/2020 Acti ve (XALATAN) 0.005 % OD QD HS ophthalmic solution metoprolol Take 25 mg 0 06/16/2020 Active tartrate by mouth 2 (LOPRESSOR) 25 MG (two) times tablet daily. pravastatin TK 1 T PO 0 04/24/2020 Active (PRAVACHOL) 40 MG HS. tablet pantoprazole Take 1 60 tablet 0 06/24/2020 Active (PROTONIX) 40 MG tablet (40 tablet mg total) by mouth 2 (two) times daily. apixaban (ELIQUIS) Take 1 60 tablet 0 07/01/2020 Active 2.5 mg Tab tablet tablet (2.5 mg total) by mouth 2 (two) times daily. sucralfate Take 1 120 tablet 0 06/24/2020 Active (CARAFATE) 1 gram tablet (1 g 1 tablet total) by mouth 4 (four) times daily for 30 days. Xarelto 20 mg Tab TK 1 T PO QD 0 05/20/2020 06/24/20 2 Discontinued tablet WITH THE UYEN 0 (Altern ate MEAL therapy) hydrALAZINE TK 1 T PO 0 06/03/2020 Discont inued (APRESOLINE) 50 MG QID 0 ( Stop Taking at tablet Discharge) apixaban (ELIQUIS) Take 1 60 tablet 0 06/24/2020 Discontinued 2.5 mg Tab tablet tablet (2.5 0 mg total) by mouth 2 (two) times daily. Active Problems Problem Noted Date GI bleed 06/20/2020 Encounters Date Type Specialty Care Team Description 06/21/2020 Travel 06/20/2020 Anesthesia Event Gastroenterology Lacy Seymour MD Hafkin, Terrance Smith MD 06/20/2020 Surgery Gastroenterology Jessica, UPPER ENDOS COPY,BIOPSY Sarahy Paniagua MD 06/20/2020 Hospital General Internal Hotze, Gastrointes tinal hemorrhage, unspecified gastrointestinal hemorrhage type; - Encounter Medicine Milo Severe anemia; 06/24/2020 MD Honorio Essential hypertension; Mariluz Soriano Acute blood los s anemia; MD Wesley Upper GI bleed; Esophagitis, Lo s Arpita grade D; Chronic atrial fibrillation (HCC); Chronic anticoa gulation after 07/22/2019 Social History Tobacco Use Types Packs/Day Years Used Date Former Smoker 11 Smokeless Tobacco: Never Used Comments: from ages [age] Alcohol Use Drinks/Week oz/Week Comments Not Currently Sex Assigned at Date Recorded Not on file Last Filed Vital Signs Vital Sign Reading Time Taken Comments Blood Pressure 180/74 06/24/2020 7:35 AM [employer] Pulse 54 06/24/2020 7:35 AM [employer] Temperature 36.3 C (97.3 F) 06/24/2020 7:35 AM [employer] WORKER Respiratory Rate 18 06/24/2020 7:35 AM [employer] C[employer] WORKER Oxygen Saturation 98% 06/24/2020 7:35 AM [employer] CARE WORKER Inhaled Oxygen Concentration - - Weight 71.5 kg (157 lb 9.6 oz) 06/24/2020 6:00 AM [employer] CARE WORKER Height 172.7 cm (5' 8") 06/23/2020 8:56 PM [employer] WORKER Body Mass Index 23.96 06/23/2020 8:56 PM [employer] WORKER Plan of Treatment Health Maintenance Due Date Last Done Comments PNEUMOCOCCAL 65+ YRS (1 of 1 - [id number]) 2005 MEDICARE ANNUAL WELLNESS (YEAR 2 or FIRST YEAR if no 03/29/2006 IPPE) INFLUENZA VACCINE (#1) 2020 DEPRESSION SCREENING (12+) 06/28/2020 Procedures Procedure Name Priority Date/Time Associated Diagnosis Comme nts POCT-GLUCOSE METER Routine 06/24/2020 5:56 Resul ts for AM [employer] WORKER this procedure are in the results section. (CELLAVISION MANUAL Routine 06/24/2020 5:16 Resu lts for DIFF) AM [employer] WORKER this procedure are in the results section. CBC W/PLT COUNT & Routine 06/24/2020 5:16 Result s for AUTO DIFFERENTIAL AM [employer] WORKER this proce dure are in the results section. CBC W/PLT COUNT & Routine 06/24/2020 5:16 Result s for AUTO DIFFERENTIAL AM [employer] C[employer] WORKER this proce dure are in the results section. BASIC METABOLIC Routine 06/24/2020 5:16 Results for PANEL (7) AM [employer] WORKER this procedure are in the results section. POCT-GLUCOSE METER Routine 06/23/2020 8:26 Resul ts for PM [employer] WORKER this procedure are in the results section. POCT-GLUCOSE METER Routine 06/23/2020 5:18 Resul ts for PM [employer] WORK[employer] this procedure are in the results section. POCT-GLUCOSE METER Routine 06/23/2020 12:04 Resul ts for PM [employer] WORKER this procedure are in the results section. POCT-GLUCOSE METER Routine 06/23/2020 7:50 Resul ts for AM [employer] WORKER this procedure are in the results section. (CELLAVISION MANUAL Routine 06/23/2020 5:23 Resu lts for DIFF) AM [employer] WORKER this procedure are in the results section. CBC W/PLT COUNT & Routine 06/23/2020 5:23 Result s for AUTO DIFFERENTIAL AM [employer] WORKER this proce dure are in the results section. CBC W/PLT COUNT & Routine 06/23/2020 5:23 Result s for AUTO DIFFERENTIAL AM [employer] WORKER this proce dure are in the results section. BASIC METABOLIC Routine 06/23/2020 5:23 Results for PANEL (7) AM [employer] WORKER this procedure are in the results section. POCT-GLUCOSE METER Routine 06/22/2020 9:20 Resul ts for PM [employer] WORKER this procedure are in the results section. POCT-GLUCOSE METER Routine 06/22/2020 5:57 Resul ts for PM [employer] WORKER this procedure are in the results section. POCT-GLUCOSE METER Routine 06/22/2020 12:43 Resul ts for PM [employer] WORKER this procedure are in the results section. POCT-GLUCOSE METER Routine 06/22/2020 6:07 Resul ts for AM [employer] CARE WORKER this procedure are in the results section. (CELLAVISION MANUAL Routine 06/22/2020 4:58 Resu lts for DIFF) AM [employer] WORKER this procedure are in the results section. CBC W/PLT COUNT & Routine 06/22/2020 4:58 Result s for AUTO DIFFERENTIAL AM [employer] WORKER this proce dure are in the results section. CBC W/PLT COUNT & Routine 06/22/2020 4:58 Result s for AUTO DIFFERENTIAL AM [employer] WORKER this proce dure are in the results section. BASIC METABOLIC Routine 06/22/2020 4:58 Results for PANEL (7) AM [employer] WORKER this procedure are in the results section. POCT-GLUCOSE METER Routine 06/21/2020 11:44 Resul ts for PM [employer] WORKER this procedure are in the results section. POCT-GLUCOSE METER Routine 06/21/2020 11:06 Resul ts for AM [employer] CARE WORKER this procedure are in the results section. POCT-GLUCOSE METER Routine 06/21/2020 6:59 Resul ts for AM [employer] WORKER this procedure are in the results section. (CELLAVISION MANUAL Routine 06/21/2020 6:39 Resu lts for DIFF) AM [employer] WORKER this procedure are in the results section. CBC W/PLT COUNT & Routine 06/21/2020 6:39 Result s for AUTO DIFFERENTIAL AM [employer] WORKER this proce dure are in the results section. MAGNESIUM Add-On 06/21/2020 6:39 Results for AM [employer] WORKER this procedure are in the results section. PHOSPHORUS Add-On 06/21/2020 6:39 Results for AM [employer] C[employer] WORKER this procedure are in the results section. CBC W/PLT COUNT & Routine 06/21/2020 6:39 Result s for AUTO DIFFERENTIAL AM [employer] C[employer] WORKER this proce dure are in the results section. BASIC METABOLIC Routine 06/21/2020 6:39 Results for PANEL (7) AM [employer] WORKER this procedure are in the results section. POCT-GLUCOSE METER Routine 06/20/2020 11:54 Resul ts for PM [employer] WORKER this procedure are in the results section. CBC (HEMOGRAM ONLY) Routine 06/20/2020 10:55 Resu lts for PM [employer] C[employer] WORKER this procedure are in the results section. POCT-GLUCOSE METER Routine 06/20/2020 5:51 Resul ts for PM [employer] WORKER this procedure are in the results section. REPORT OF PROCEDURE 06/20/2020 4:44 - ENDOSCOPY URL PM [employer] WORK[employer] TISSUE EXAM AP Routine 06/20/2020 4:09 Results for PM [employer] WORKER this procedure are in the results section. UPPER 06/20/2020 3:47 Gastrointestinal ENDOSCOPY,BIOPSY PM [employer] WORKER hemorrhage, unspecified gastrointestinal hemorrhage type IRON, TIBC, % SAT. Routine 06/20/2020 2:48 Resul ts for (WITHOUT FERRITIN) PM [employer] WORKER this proc edure are in the results section. FERRITIN Routine 06/20/2020 2:48 Results for PM [employer] WORKER this procedure are in the results section. HEMOGLOBIN AND Routine 06/20/2020 2:48 Results f or HEMATOCRIT PM [employer] WORKER this procedure are in the results section. FIBRINOGEN Routine 06/20/2020 11:43 Results for AM [employer] WORKER this procedure are in the results section. APTT Routine 06/20/2020 11:43 Results for AM [employer] WORKER this procedure are in the results section. PROTHROMBIN TIME/INR Routine 06/20/2020 11:43 Res ults for AM [employer] WORKER this procedure are in the results section. ABORH, MANUAL STAT 06/20/2020 11:36 Results fo r AM [employer] CARE WORKER this procedure are in the results section. HEMOGLOBIN AND STAT 06/20/2020 11:28 Results f or HEMATOCRIT AM [employer] CARE WORKER this procedure are in the results section. TYPE AND SCREEN, STAT 06/20/2020 11:27 Results for AUTOMATED AM [employer] WORKER this procedure are in the results section. MAGNESIUM Routine 06/20/2020 11:24 Results for AM [employer]ARE WORKER this procedure are in the results section. PHOSPHORUS Routine 06/20/2020 11:24 Results for AM [employer] WORKER this procedure are in the results section. COMPREHENSIVE Routine 06/20/2020 11:24 Results fo r METABOLIC PANEL AM [employer] CARE WORKER this procedu re are in the results section. SARS-COV2/RT-PCR Routine 06/20/2020 11:24 Results for ([facility] & REF LABS) AM [employer] CARE WORKER this proce dure are in the results section. REPORT OF PROCEDURE 06/20/2020 Results for - ENDOSCOPY SCAN this proced ure are in the results section. after 07/22/2019 Results POC-Glucose meter (06/24/2020 5:56 AM LAWN CARE WORKER)Only the most recent of14 results within the time period is included. POC-Glucose Meter 101 70 - 110 mg/dL [facility] Comment: [facility] : TESTED AT [facility] [address] [place] [address], [address] CENTER : Four H Agent/Clam Picker ID = [id number] for RIMA CHASE Specimen Blood Performing Organization Address City/State/Zipcode Phone Number [address] [address] CENTER Manual Differential (06/24/2020 5:16 AM LAWN CARE WORKER)Only the most recent of4 results within the time period is included. Pathologist Sig nature % Neutros 64 % [facility] % Lymphs 18 % [facility] % Monos 7 % [facility] % Eos 10 % [facility] % Baso 1 % [facility] % Myelo 1 (H) 0 - 0 % [facility] # Neutros 6.34 (H) 1.78 - 5.38 K/ul [facility] # Lymphs 1.78 1.32 - 3.57 K/ul [facility] # Monos 0.69 0.30 - 0.82 K/uL [facility] # Eos 0.99 (H) 0.04 - 0.54 K/uL [facility] # Baso 0.10 (H) 0.01 - 0.08 K/uL [facility] # Myelo 0.10 (H) 0.00 - 0.00 K/uL [facility] Total Counted 100 [facility] nRBC (manual) 1 (H) 0 - 0 /100 WBC [facility] Smudge Cells Present [facility] Giant Platelet Present [facility] Polychromasia 1+ few [facility] Anisocytosis 1+ few [facility] Platelet Conc Adequate [facility] Specimen Blood Narrative Performed At Four H Agent ID - Isis Maxi [facility] User comments: Slide comments: Performing Organization Address City/State/Zipcode Phone Number [facility] [address] [place] [address] CENTER CBC with platelet count + automated diff (06/24/2020 5:16 AM LAWN CARE WORKER)Only the most recent of4 resultswithin the time period is included. Pathologist Sig nature WBC 9.9 3.5 - 10.5 K/L [facility] RBC 2.67 (L) 4.63 - 6.08 M/L [facility] Hemoglobin 8.1 (L) 13.7 - 17.5 GM/DL [facility] Hematocrit 24.9 (L) 40.1 - 51.0 % [facility] MCV 93.3 (H) 79.0 - 92.2 fL [facility] MCH 30.3 25.7 - 32.2 pg [facility] MCHC 32.5 32.3 - 36.5 GM/DL [facility] RDW 18.6 (H) 11.6 - 14.4 % [facility] Platelets 245 150 - 450 K/CU MM [facility] MPV 10.5 9.4 - 12.4 fL [facility] nRBC 0 0 - 0 /100 WBC [facility] Specimen Blood Performing Organization Address City/State/Zipcode Phone Number [facility] [address] [place] [address] CENTER Basic Metabolic Panel (06/24/2020 5:16 AM LAWN CARE WORKER)Only the most recent of4 results within the time period is included. Sodium 140 136 - 145 meq/L [facility] Potassium 3.9 3.5 - 5.1 meq/L [facility] Chloride 107 98 - 107 meq/L [facility] CO2 28 22 - 29 meq/L [facility] BUN 12 7 - 21 mg/dL [facility] Creatinine 0.92 0.57 - 1.25 [facility] mg/dL [facility] Glucose 104 70 - 105 mg/dL [facility] Calcium 8.3 (L) 8.4 - 10.2 [facility] mg/dL [facility] EGFR 79Comment: ESTIMATED mL/min/1.73 sq [facility] GFR IS NOT [facility] ACCURATE WENTWORTH CREATININE CLEARANCE IN PREDICTING GLOMERULAR FILTRATION RATE. ESTIMATED GFR IS NOT APPLICABLE FOR DIALYSIS PATIENTS. Specimen Blood Narrative Performed At Four H Agent ID - SEDRICKASI [facility] Performing Organization Address [facility] Phone Number [address] [address] CENTER Phosphorus (06/21/2020 6:39 AM LAWN CARE WORKER)Only the most recent of2 resultswithin the time period is included. Pathologist Sig nature Phosphorus 2.3 2.3 - 4.7 mg/dL [facility] Specimen Blood Narrative Performed At Four H Agent ID - AARAMÓN [facility] Performing Organization Address [facility] Phone Number [address] [address] CENTER Magnesium (06/21/2020 6:39 AM LAWN CARE WORKER)Only the most recent of2 resultswithin the time period is included. Pathologist Sig nature Magnesium 1.9 1.6 - 2.6 mg/dL [facility] Specimen Blood Narrative Performed At Four H Agent ID - AAPARVIZID [facility] Performing Organization Address City/[facility] Phone Number [address] [address] CENTER CBC (Hemogram only) (06/20/2020 10:55 PM LAWN CARE WORKER) Pathologist Sig nature WBC 16.0 (H) 3.5 - 10.5 K/L [facility] RBC 2.75 (L) 4.63 - 6.08 M/L [facility] Hemoglobin 8.3 (L) 13.7 - 17.5 GM/DL [facility] Hematocrit 24.3 (L) 40.1 - 51.0 % [facility] MCV 88.4 79.0 - 92.2 fL [facility] MCH 30.2 25.7 - 32.2 pg [facility] MCHC 34.2 32.3 - 36.5 GM/DL [facility] RDW 17.7 (H) 11.6 - 14.4 % [facility] Platelets 194 150 - 450 K/CU MM [facility] MPV 10.4 9.4 - 12.4 fL [facility] nRBC 0 0 - 0 /100 WBC [facility] Specimen Blood Performing Organization Address City/State/Zipcode Phone Number [facility] [address] [place] [address] CENTER REPORT OF PROCEDURE - ENDOSCOPY URL (06/20/2020 4:44 PM LAWN CARE WORKER) Narrative Performed At This result has an attachment that is no t available. Tissue Exam (06/20/2020 4:09 PM LAWN CARE WORKER) Case Report Surgical Pathology Report Case: [id number] [facility] Authorizing Provider: Sarahy Mcdaniel MD Collected: 06/20/2020 04:09 PM [facility] Ordering Location: [place] [address] ICU Received: 06/24/2020 08:14 AM MEDICAL CENTER Pathologist: No Mueller MD Specimen: Biopsy, Gastr ic, Gastric Bx DIAGNOSIS [facility] Electronically A. STOMACH, BIOPSY: [facility] signed zuri Mueller, - GASTRIC OXYNTIC MUCOSA WITH NO SIGNIFICANT DIAGNOSTIC ALTERATION. [facility] MD No on - NEGATIVE FOR HELICOBACTER PYLORI ORGANISMS BY WA HIN STARRY STAIN. 06/24/2020 at 3:26 - NEGATIVE FOR INTESTINAL METAPLASIA, DYSPLASIA OR MALIGNANCY. PM Signing Pathologist Direct Phone Line: [phone] CPT Code(s) 31829, [address]9621 [facility] CLINICAL HISTORY GI Bleed [facility] SPECIMEN SOURCE Gastric biopsy [facility] GROSS DESCRIPTION Received in formalin labeled the patient's name, accession number and "gastric biopsy" are 2 navarro-pink tissue fragments measuring up to 0.4 cm in greatest dimension which are filtered and submitted in toto in A1. [facility] Varghese, HT (ASCP) MEDICAL CE NTER MICROSCOPIC Performed. [facility] SPECIAL STUDIES The interpretation of this c ase included the use of immunohistochemistry or special stains. [facility] Control Slides Examined: In -house known positive controls were evaluated along with the test tissue. These control slides run alongside of the patients sample show appropriate staining. [facility] michelle and negative controls when available are evaluated Immunohistochemistry technic álvaro testing was performed at [facility], Pathology Laboratory where it was developed and its performance characteristics were determined. It has not be en cleared or approved by [facility] U.S. Food and Drug Administration. The FDA has determined that such clearance or approval is not necessary. The test is used for clinical purposes. It should not be regarde d as investigational or for research. This laboratory is certified under the Clinical Laboratory Improvement Amendments of 1988 (CLIA-88) as qualified to perform high complexity clinical laboratory testing. Gross assessment [facility] was performed at [facility] Pathology, [address] [place] [id number], Technical [facility] component was [facility] performed at Pathology, [address] [place] [id number], Professional [facility] component was [facility] performed at [address] [address], Specimen Tissue - Gastric biopsy sample (specimen ) Performing Organization Address City/State/Zipcode Phone Number [facility] [address] [place] [phone] CENTER Iron, TIBC, % sat. (without ferritin) (06/20/2020 2:48 PM LAWN CARE WORKER) Pathologist Sig nature Iron 107.0 40.0 - 160.0 [facility] ug/dL [facility] TIBC 173 (L) 250 - 450 ug/dL [facility] Iron % Saturation 62 (H) 20 - 55 % [facility] Specimen Blood Narrative Performed At Four H Agent ID - TYREE Mccray [facility] Performing Organization Address City/[facility] Phone Number [address] [address] CENTER Hemoglobin and hematocrit (06/20/2020 2:48 PM LAWN CARE WORKER)Only the most recent of2 resultswithin the time period is included. Pathologist Sig nature Hemoglobin 8.8 (L) 13.7 - 17.5 GM/DL [facility] Hematocrit 24.9 (L) 40.1 - 51.0 % [facility] Specimen Blood Narrative Performed At Four H Agent ID - [id number] [facility] Performing Organization Address [facility] Phone Number [address] [address] CENTER Ferritin (06/20/2020 2:48 PM LAWN CARE WORKER) Pathologist Sig nature Ferritin 99.40 5.00 - 275.00 ng/mL [facility] Specimen Blood Narrative Performed At Four H Agent ID - TYREE F [facility] Performing Organization Address City/[facility] Phone Number [address] [address] CENTER aPTT (06/20/2020 11:43 AM LAWN CARE WORKER) Pathologist Sig nature PTT 32.4 22.5 - 36.0 seconds [facility] Specimen Blood - Entire right upper arm (body str ucture) Performing Organization Address [facility] Phone Number [address] [place] [address] CENTER Prothrombin time/INR (06/20/2020 11:43 AM LAWN CARE WORKER) Pathologist Sig nature Protime 18.5 (H) 11.9 - 14.2 seconds [facility] INR 1.59 <=5.90 [facility] Specimen Blood - Entire right upper arm (body str ucture) Narrative Performed At Effective 11/23/2018: PT Reference Range [facility] Change New: 11.9-14.2 Previous: 11.7-14.7 RECOMMENDED COUMADIN/WARFARIN INR THERAPY RANGES STANDARD DOSE: 2.0-3.0 Includes: PROPHYLAXIS for venous thrombosis, systemic embolization; TREATMENT for venous thrombosis and/or pulmonary embolus. HIGH RISK: Target INR is 2.5-3.5 for patients wiht mechanical heart valves. Performing Organization Address [facility]/Zipcode Phone Number [address] [address] CENTER Fibrinogen (06/20/2020 11:43 AM LAWN CARE WORKER) Pathologist Sig [facility] Fibrinogen 376 225 - 434 mg/dl [facility] Specimen Blood - Entire right upper arm (body str ucture) Performing Organization Address [facility] Phone Number [address] [address] CENTER ABORH, manual (06/20/2020 11:36 AM LAWN CARE WORKER) Pathologist Sig nature ABO Grouping A [facility] DICAL [facility] Rh Factor NEG [facility] Specimen Blood Performing Organization Address [facility]/Zipcode Phone Number [address] [address] Type and screen, automated (06/20/2020 11:27 AM LAWN CARE WORKER) Pathologist Sig nature ABO/RH AUTOMATED A NEGATIVE [facility] (BEAKER) [facility] Ab Scrn NEGATIVE [facility] Specimen Blood Performing Organization Address City/State/Zipcode Phone Number [facility] [address] [place] [address] SARS-CoV2/RT-PCR (Asymptomatic ONLY) (06/20/2020 11:24 AM [employer] WORK[employer]) SARS-COV2/RT-PCR Negative Not Detected, [facility] Negative, See [facility] external report CENTER for linked test SARS-COV-2 [facility] PERFORMING LAB [facility] Specimen Other - Nasopharyngeal wall structure (b padmini structure) Narrative Performed At Negative result for this test determines that [facility] SARS-CoV-2 RNA was not present in the specimen above the Limit of Detection (LOD). However, Negative results do not preclude SARS-CoV-2 infection and should not be used as the sole basis for treatment or patient management decisions. Negative results must be combined with clinical observations, patient history, and epidemiological information. A false negative result may occur if a specimen is improperly collected, transported or handled. A false negative result should be considered if patient's recent exposures or clinical presentation indicate that COVID-19 (SARS-CoV-2) is likely and diagnostic tests for other causes of illness are negative. Re-testing should be considered in cases of suspected false negatives. The limit of detection for this assay is 800 copies/mL. This SARS CoV-2 test is a real-time RT-PCR test intended for the qualitative detection of nucleic acid from SARS-CoV-2 in a nasopharyngeal swab specimen collected from individuals suspected of COVID-19 by their healthcare provider. This test has not been Food and Drug Administration (FDA) cleared or approved. This is a modified version of an approved Emergency Use Authorization (EUA) and is in the process of review by the FDA. Once authorized by the FDA, the issued EUA will be effective until the declaration that circumstances exist justifying the authorization of the emergency use of in vitro diagnostic tests for detection and/or diagnosis of COVID-19 is terminated under Section 564(b)(2) of the Act or the EUA is revoked under Section 564(g) of the Act. Fact Sheet for Healthcare Providers: https://www.[employer].com/sites/default/files/pro duct/documents/Fact_Sheet_HC_Providers_Lyra_SA RS-CoV-2.pdf Fact Sheet for Healthcare Patients: https://www.[employer]/sites/default/files/pro duct/documents/Fact_Sheet_Patients_Lyra_SARS-C oV-2.pdf Performing Laboratory: [address] [address] Performing Organization Address City/State/Zipcode Phone Number [place] [phone] [place] Comprehensive metabolic panel (06/20/2020 11:24 AM [employer]WN CARE WORKER) Protein, Total 5.3 (L) 6.0 - 8.3 [facility] gm/dL [facility] Albumin 2.9 (L) 3.5 - 5.0 [facility] g/dL [facility] Alkaline 35 (L) 40 - 150 U/L [facility] Phosphatase [facility] Total Bilirubin 0.5 0.2 - 1.2 [facility] mg/dL [facility] Sodium 133 (L) 136 - 145 [facility] meq/L [facility] Potassium 3.4 (L) 3.5 - 5.1 [facility] meq/L [facility] Chloride 106 98 - 107 [facility] meq/L [facility] CO2 19 (L) 22 - 29 meq/L [facility] BUN 54 (H) 7 - 21 mg/dL [facility] Creatinine 1.06 0.57 - 1.25 [facility] mg/dL [facility] Glucose 110 (H) 70 - 105 [facility] mg/dL [facility] Calcium 7.9 (L) 8.4 - 10.2 [facility] mg/dL [facility] AST 31 5 - 34 U/L [facility] ALT 6 6 - 55 U/L [facility] EGFR 67Comment: mL/min/1.73 [facility] ESTIMATED GFR IS sq m [facility] NOT ACCURATE MEDICAL CENTER CREATININE CLEARANCE IN PREDICTING GLOMERULAR FILTRATION RATE. ESTIMATED GFR IS NOT APPLICABLE FOR DIALYSIS PATIENTS. Specimen Blood - Entire right upper arm (body str ucture) Narrative Performed At Four H Agent ID - TYREE Mccray [facility] Performing Organization Address City/State/Zipcode Phone Number [facility] [address] [place] [address] CENTER EKG-SCANNED (06/20/2020) Narrative Performed At This result has an attachment that is no t available. Ordered by an unspecified provider. after 07/22/2019 Insurance Payer Benefit Plan / Subscriber ID Effective Dates Phone Addre ss Type Group MEDICARE MEDICARE A B [id number] 2005-Presen Medicare [facility] [id number] 2019-Present [employer] SUPPLEMENT/[facility] Advance Directives For more information, please contact: [phone] Code Status Date Activated Date Inactivated Comments Full Code 06/20/2020 11:13 AM 06/24/2020 5:29 PM This code status was determined by: Patient
--- OUTSIDE RECORDS SUMMARY | 2020-07-22 18:17 | XMS REPORT | Continuity of Care Document ---
:1940 Author Organization [facility] t Address [address] [place] [address] Care Team Providers Name Role Phone Madeline BERG, Colleen Attending Clinician Bo BERG, Wesley Attending Clinician Lion BERG, Lakhwinder Attending Clinician Luis Gongora MD Attending Clinician Jessica BERG, Siva Attending Clinician COLLEEN MATA Attending Clinician Unavailable COLLEEN MATA Admitting Clinician Unavailable Payers Payer Name Policy Type Policy Effective Date Expiration Date Sour ce Number MEDICAREMEDICARE A [id number] 2005 [facility] [id number] 2004- 00:00:00 - Medical PresentMedicare Center MCR [id number] [address] [facility] SUPPLEMENT/INDIVIDUALA 00:00:00 - [id number] /06/2019-PresentMedigap Problems Condition Condition Condition Status Onset Resolution Last Treating Co mments Source Name Details Category Date Date Treatment Clinician Date GI bleed GI bleed Disease Active 2019-06 SUMMER borges 08-21 Roxy - 00:00: Medical [address] [place] [address] Allergies, Adverse Reactions, Alerts This patient has no known allergies or adverse reactions. Social History Social Habit Start Date Stop Date Quantity Comments Source Sex Assigned At [facility] Tobacco use and 2020-06-24 2020-06-24 Never used [facility] - exposure 00:00:00 00:00:00 Medical Center Alcohol intake 2020-06-24 2020-06-24 Ex-drinker [facility] - 00:[facility]00 00:00:00 (finding) [facility] Tobacco Comment 2020-06-21 2020-06-21 from ages 14-[address] [facility] - 00:[facility]:00 [facility]00 [facility] Center Smoking Status Start Date Stop Date Source Former smoker 2020-06-24 00:00:00 2020-06-24 00:00:[address] [facility] Medications Ordered Filled Start Stop Current Ordering Indication Dosage Frequency Signature Comments Components Source Medication Medication Date Date Medication? Clinician (SIG) Name Name apixaban Yes 2.5mg Q.5D Take [address] (ELIQUIS) 1-04 tablet [facility] - 2.5 mg Tab 00:00: (2.5 mg Medi hardeep tablet 00 total) by Center mouth 2 (two) times daily. pantoprazol 2019-06 Yes 40mg Q.5D Take [address] [facility] 2-28 tablet (40 [facility] - (PROTONIX) 00:00: mg total) Me dical 40 MG 00 by mouth 2 Center tablet (two) times daily. sucralfate 2019-06 Yes 1g Q.25D Take [address] (CARAFATE) 08-25- tablet (1 [facility] es - 1 gram 00:00: 23:59 g total) Medica l tablet 00 :00 by mouth 4 Center (four) times daily for 30 days. apixaban 2019-06- No 2.5mg Q.5D Take 1 [facility] (ELIQUIS) 08-25 tablet [facility] - 2.5 mg Tab 00:00: 00:00 (2.5 mg Med ical tablet 00 :00 total) by Center mouth 2 (two) times daily. metoprolol 2019-06 Yes 25mg Q.5D Take [address] tartrate 2-20 by mouth 2 [facility] - (LOPRESSOR) 00:00: (two) Medic al 25 MG 00 times Center tablet daily. hydrALAZINE 2019-06- No TK [address] [address] (APRESOLINE 2-06-24 QID [facility] - ) 50 MG 00:00: 00:00 Medical tablet 00 :00 Center Xarelto 20 2019-06- No TK [address] [facility] mg Tab 07-20 QD WITH [facility] - tablet 00:00: 00:00 THE [facility] 00 :00 MEAL Center latanoprost 2019-06 Yes INT [address] (XALATAN) 1-21 IN OD QD [facility] - 0.005 % 00:00: HS Medical ophthalmic 00 Center solution pravastatin 2019-06 Yes TK [address] [facility] (PRAVACHOL) 0-28 HS. [facility] - 40 MG 00:00: Medical tablet 00 Center Vital Signs Vital Name Observation Time Observation Value Comments Source Systolic blood 2020-06-24 07:35:00 180 mm[Hg] [facility] Diastolic blood 2020-06-24 07:35:00 74 mm[Hg] [facility] Heart rate 2020-06-24 07:35:00 54 /min [facility] Body temperature 2020-06-24 07:35:00 36.28 Yaz [facility] Respiratory rate 2020-06-24 07:35:00 18 /min [facility] Oxygen saturation in 2020-06-24 07:35:00 98 /min [facility] Arterial blood by Medical Ce nter Pulse oximetry Body weight 2020-06-24 06:00:00 71.487 kg [facility] BMI 2020-06-24 06:00:00 23.96 kg/m2 [facility] Body height 2020-06-23 20:56:00 172.7 cm [facility] Procedures Procedure Date / Time Performed Performing Clinician Sourмарина e POCT-GLUCOSE METER 2020-06-24 05:56:00 Mariluz Soriano [facility] BASIC METABOLIC PANEL (7) 2020-06-24 05:16:00 Mariluz Soriano [facility] CBC W/PLT COUNT & AUTO 2020-06-24 05:16:00 Mariluz Soriano [facility] (CELLAVISION MANUAL DIFF) 2020-06-24 05:16:00 Mariluz Soriano [facility] POCT-GLUCOSE METER 2020-06-23 20:26:00 Mariluz Soriano [facility] POCT-GLUCOSE METER 2020-06-23 17:18:[facility] 2020-06-23 12:04:00 [facility]ER 2020-06-23 07:50:00 [facility] (7) 2020-06-23 05:23:00 [facility] W/PLT COUNT & AUTO 2020-06-23 05:23:00 Mariluz Soriano [facility] (CELLAVISION MANUAL DIFF) 2020-06-23 05:23:00 [facility] POCT-GLUCOSE METER 2020-06-22 21:20:00 [facility] PO[facility]SE METER 2020-06-22 17:57:00 [facility] POCT-GLUCOSE METER 2020-06-22 12:43:00 [facility] POCT-GLUCOSE METER 2020-06-22 06:07:00 [facility] BAS[facility]OLIC PANEL (7) 2020-06-22 04:58:00 [facility] CBC W/PLT COUNT & AUTO 2020-06-22 04:58:00 Mariluz Soriano [facility] (CELLAVISION MANUAL DIFF) 2020-06-22 04:58:00 [facility] POCT-GLUCOSE METER 2020-06-21 23:44:00 [facility] POCT-GLUCOSE METER 2020-06-21 11:06:00 Madeline Milo [facility] POCT-GLUCOSE METER 2020-06-21 06:59:00 Hotingrid Milo Colleen [facility] BASIC METABOLIC PANEL (7) 2020-06-21 06:39:00 Scott Brooks [facility] PHOSPHORUS 2020-06-21 06:39:00 Antonio Bridgett Stuart [facility] MAGNESIUM 2020-06-21 06:39:00 Antonio Bridgett [facility] CBC W/PLT COUNT & AUTO 2020-06-21 06:39:00 Scott Brooks [facility] (CELLAVISION MANUAL DIFF) 2020-06-21 06:39:00 Scott Brooks [facility] POCT-GLUCOSE METER 2020-06-20 23:54:00 HotMilo quintero [facility] CBC (HEMOGRAM ONLY) 2020-06-20 22:55:00 Loki Crouch [facility] POCT-GLUCOSE METER 2020-06-20 17:51:00 Milo Mata [facility] REPORT OF PROCEDURE - 2020-06-20 16:44:30 Jessica [facility] ENDOSCOPY [facility] TISSUE EXAM 2020-06-20 16:09:00 Jessica [facility] UPPER ENDOSCOPY,BIOPSY 2020-06-20 15:47:00 Jessica [facility] HEMOGLOBIN AND HEMATOCRIT 2020-06-20 14:48:00 Milo Mata [facility] FERRITIN 2020-06-20 14:48:00 Ze Charles Rene [facility] IRON, TIBC, % SAT. 2020-06-20 14:48:[address] [facility] (WITHOUT FERRITIN) [facility] r PROTHROMBIN TIME/INR 2020-06-20 11:43:00 Milo Mata [facility] APTT 2020-06-20 11:43:00 Milo Mata [facility] FIBRINOGEN 2020-06-20 11:43:00 Milo Mata [facility] ABORH, MANUAL 2020-06-20 11:36:00 Maggie Jacobs [facility] HEMOGLOBIN AND HEMATOCRIT 2020-06-20 11:28:00 HotzeMilo [facility] TYPE AND SCREEN, 2020-06-20 11:27:00 Hotze, Milo Olmedo [facility] AUTOMATED [facility] SARS-COV2/RT-PCR ([facility] & 2020-06-20 11:24:00 Hotze, Milo hines [facility] - REF LABS) [facility] COMPREHENSIVE METABOLIC 2020-06-20 11:24:00 Hotze, Milo borges [facility] - PANEL [facility] PHOSPHORUS 2020-06-20 11:24:00 Hotze Milo lOmedo [facility] MAGNESIUM 2020-06-20 11:24:00 Hotze Milo Olmedo [facility] REPORT OF PROCEDURE - 2020-06-20 00:00:00 Provider, Elsa [facility] - ENDOSCOPY SCAN Scanning [facility] Plan of Care Planned Activity Planned Date Details Comments Source Future Scheduled 2020-06-[address] [facility] - Test 00:00:00 (12+) [code = [facility] DEPRESSION SCREENING (12+)] Future Scheduled 2020-02-27 INFLUENZA VACCINE (#1) [facility] Test 00:00:00 [code = INFLUENZA Medical Ce nter VACCINE (#1)] Future Scheduled 2006-03-[address] [facility] - Test 00:00:00 WELLNESS (YEAR 2 or Medical Center FIRST YEAR if no IPPE) [code = MEDICARE ANNUAL WELLNESS (YEAR 2 or FIRST YEAR if no IPPE)] Future Scheduled 2005 PNEUMOCOCCAL 65+ YRS [facility] - Test 00:00:00 (1 of 1 - [facility] [id number] PCV13) [code = PNEUMOCOCCAL 65+ YRS (1 of 1 - [id number] PCV13)] Results Test Description Test Time Test Comments Results Result Comments Source Tissue Exam 2020-06-24 15:26:00 Test Item Value Reference Range Interpretation Comme nts Case Report (test code = 104) Surgical Pathology Report Case: [id number] Authorizing Provider: Sarahy Lopez MD Collected: 06/20/2020 04:09 PM Ordering Location: [place] [address] ICU Received: 06/24/2020 08:14 AM Pathologist: No Mueller MD Specimen: Biopsy, Gastric, Gastric Bx DIAGNOSIS (test code = 3220) [id number]iUxRi p cdWMxIHtccnRmMVxlcGljOTIwMFxhbnNpXHNwbH AbN6TaclltROlyPP0vFT3gzNsobZBvpSVeIIBdE tRnv1ndo354dXBvf9dlZLWKwxtoiZx6yLtlQ32w p6Z1XtpfG8mlWWTcPJftslRvehO5WRNssKLqZHa 6EONfehXxcKxpnF6hFlPnDBhwJJCviNXaJBZEYm OQYD5HTJEIBZYYTX4FW3k2ZTCkpwBqFYOyYADRU VRCZovQSO0ADP7GYNJqJGUWT0ZULQgLCXyrFBHg ODOWQxXODKxNTQTMP3VXBLOXJPLDOh4VMVgMRFX OUHPSVZCGR29cZZEnhucqCxMqUUAtGM7vYfETQM CMYlKzLp0TPQgPAXnIV6NHT3CZAxLZQTkTHgehX 8AAQB7WT38MRTKFDTeAPkYBYY7uZ0WXQpPINHNG PDgZLegtSJWzMJUrLN5bMlKQJFSFUlOgXd3PYNf OVEVTVElOQUwgTUVUQVBMQVNJQSwgRFlTUExBU0 zMQM4KEB6BDFdSEiFZP8nnFTRupd16OFA9YxLyd 3O1YRX2OSAjPOSpl1ulLSXdyVEbZvSyJdAfRmLo KfjqtRAtHVOiYmSpd5fxd086zINrb6yfTIMdOeH 6fYUbHCGyfBOjQ459YIHrTZgdf7eeb3FfVMJorS Lsi5U7UGBQedbutHi0kFflK59yf2J1JijxV8jgA KCzETBfT3PxMV5yVDWdYbv7MEI6URX7HQNkNYLq I5SiZW2jLBTecPUwMEv7w4kjiTrxQMYiUUR6w4u yTRacvoMuNB3xqd0mlRv4d5acknXzSIHfROSmwI DCTFOzZ5BwyMpxCb9zwIz8dObfXccwOPH7Rem1R P5voi52dmm3gTgtRZOvoazcZwB3GUjrALLzcgxd CVr6NWopQQPwuJT7ZIOwjVTlD1ApBRLtKN8wrme 5ZVG3SEymBCTsHpN4IWWsiGQkHZEopIsxHHtly5 46JXW0CqYqHF1aG8Nqw6Y6wC2ebTBhHEOeuCZmH nDdQAXcgj2ypAEqZZcbh1TmOGX6zpK2pKWjcBEl NQIwYeT4OWtmUW6unm34AAAtIZI2ki2ugSKagAo uymSvlLVwUTazX4SdHNHqd695ZRWtJ2KvWLMyn2 Q3xjPxRgHwJPCvoKA3cvH0DIEuYP8otvlyv7xxX WxvYUdkGTUxchC2jwC0TMOfiNWcT4WdwK0qXCUl LX3qbqffg6kaRYO1QBpeLHJlZZZ5KwVbCJLtz8J yxcq2RdToz2CgxTQwAVgzV84cd408FTYunxGsM5 bkoPZxbwahdLIgagoeKSlhzuU0FQBwGWxrvouvW KDkNOpqT1frTjPuWQArmLstSTlbs5WpPUJzXRNc NpHdvHOkNCOtTny2JOQtlAOsROYhPgIkH7bfaff iVcEVULDcz1poB7pfsZZJgIMwH0UkTTiuelMuNP gdFKngPTFcDMC8QC2tVjN3VSRpdt26 CPT Code(s) (test code = 3357) w9nibBVpAYDpuXQ4AwZcLOPvp3xjq6RbjAYa cGF cMDgriTMlcgPepe48pFO8aQ62JH6rTPSqSaO1RD UeajS9Klq5ETYuFXRsvQJjU595u8nva8amvpTlu ZT5oCwnLSNyYFHlHHhvHLWwIcAcXKnlYVAfYXx0 MzEyXHBhcn0= CLINICAL HISTORY (test code = 3356) x9sceBAbVGKdlAI8IbGoZWEsx0glw1P sdHBncGF zNIuefTKbvpXaop57aSV7dF96UQ1eVUOnGkT8EU NtohS5Ogv9JSOtEHKfeABkZ312o0pow7rbswCol ID8fCfqBDXrEYQzJSqoHYSfNdVzB0pcMwlhTBMc cGFyfQ== SPECIMEN SOURCE (test code = 3377) y7owkLUgXUKlnMI4SmTbXEZjk5qgc4Pf dHBncGF hOQxvuEDpqrAsyu42xJO5rO95ZZ6hYWGyXlR2OL RtgyZ7Jlp4NQUwRQLklQPbA625n5qfs9gigpVts VO0vFccGQJjAQNmSFquXZYsWuCgA4YdlPWvHoDc eD1nk0lolMDqfQ== GROSS DESCRIPTION (test code = 3366) h1mmpQNiWPHbkSUlGsRbTMIxEUKxp9 lcZGVmbGF hYxCiRnZgExUhLyuqlXGcVLVwEpDan2dkp212iW Ctq5ytXMVwCeQ7sZOeVCFdgDLjS770y9orf3agj dKfiSN2LCLtZPG9IBwpuaOqdbA9XIvciLZeXpG0 OLchmlMhQZfdrjBkkdKkSix5GJIxV375KEE1fKm xy2jsVCR0BDTqRNOnDgGhOh9gzRGaM223CJDtJN TNMROzpRb1FYIdvpXrfnFqsTYVh564Q345q5jyZ OZhpxHfvGiKvlaav5ofE930ZWUptYXhmiHqBnIx VBIejKKjvGV2VSGwPB8eopsyMcDzFP6binwmUeI rVZ7kywe4AaTsPX2nxjmcMwIhHUoaMVBixwxeYM Etl4ZjlxlhXX2xL6Zri4S4tN9whEZvOLVcqNBhH iIkTPLvnr5tjQBqFUgsw0UaPOV4nrJ7aJJthVKd RFNgVU96Jdlgi0WlDfftUKA8PMIhsjYix8Xav3d uHgZozpPaR3riR1QwKHKjJHIfJXChVrYyfsXlr1 Cay0QyfOEfpNt9f1yzKJDrCPYqbYjwr8ysVQA7G YTkO5E4eHTxc6hsDAzjGACjnLM7nurfCQdtQZBy uyJ0wlptFKjiXRBeaEO5zrbbFUqtUSNwQbK5and mCAlyVIWhION7VHgyv987AAD6IWrjAhwgTVqbSO BnbmNvbnRccGduZGVjXHBsYWluXHBsYWluXGYwX FCbOnHuaLntmOtjvH9mQeAgNnQoELygMF4tSDPx P4snnNJlDXLjQWVrI4cgSqOixR2uiUfeRNpmujM vFVTyJ7TzhkOpXTyfBRFnxm5teKxyBZxeXqOoXK SeuSnzPYAtsNjaiqCxcjOdLC0tKGJfW4Uaf9Vwp 49dbbGqLjUzWMDaEGHmZ2GqxZSwDtIwtH6zs4tp PMKeKEDjWONvbv4epX3vDEYzt4O7ZNBlmtTlhVS oeLMwiJCyu4VxfF2mTCLySGCsTTRoGTIoaZJspf MmsgYpjYXcyHDqgN1gboMgl77pk4bdL6jxAUYxC KRftIYdqwEzMLCdROHzxZChrUW5YTNmkW1dgD48 snXhmwVEWL6evJZcXCBdqyBVrOluxbFWnjp7VSp sZXMsIFBBLCBIVCAoQVNDUClccGFyfQ== MICROSCOPIC DESCRIPTION (test code = o7uonYGrKJFweVV6BjFfTTNlt5xzv2 BsdHBncGF 3371) xUYphoVXggmPvix40eDR5yK24DM2rAZBtDyB0OC ElcoT3Xmp5HMAzHYNzeHGhM880c9sbp3klkvDzv IW8nFthYTYxTUSmWKzcVIOpSxOyNRLsXt8faIMp LlxwYXJ9 SPECIAL STUDIES (test code = 3376) w1xytLEzMKKndPV5OrAqAUIwm8usu5Pi dHBncGF xZQjipXEnauQuzd92mRX6dG24AP9aONBdWdR8MW YdphP4Qcz6ZXVaTUWezNUpH562AZYhRONaiGtnv uo5jG27PEQtkH8vdNKnYRl3MAPguwXrsKcebZ6m UjDjPvQpMxVPvHLwcR88OLVrovO7ICFan40np6T oxAstadWxCKEhKColF6v2AYYqWTMlNOB8x8Yjz0 RawF1mnG5ntIscpO0bjRTssII5qtnph8Lmz3ZwY 4hpxIUivXAntxNnTOIiocICILX7zSygDLO2YJQn dMqkNTEnF71osDGugUTOqUajLTCgGNxzgDzmPYD 4ONFLpo2oa0ZoDBOpcr46dqYvv3GqgRi2ZNGcb0 26hb6leqR5QWRoDEK5WRx8XAUbKZXwvD9bStB5a LHgZPBjQAN2RZK4TOPtd7K5RZ2kPBFzFKTvKGOx uhVsp9bhp1qzNQWiAJC0feXcuL6mC3YsDVLmw3K aoPinIYUupQvrzxFhYCBujLAuSPSlwP49JARraY VrlBAnJZKxWWO6MAtriF5nViPPpuNnxw5vaQIzm 8VghHk0FJMhmfWtnxEnZFGzwjZdK38ldEChuUDw m3ejkpDappIxdFVijHGeFRHtPFI5ULh3BRCuHCy wTMSzFWqsEEQfKQ2adX1kuDbiqG8uaZJfuCW2jg nqcXDywM7dU5ObCUUtt2Hlsydog0PlDCUhbtEcf n7pXNEsrQDSLNbtx5VsK3RgNHv7e4TcbOwfUVnx CIa3XyMoFHHkoVNgcMUXFK04QWBaUSReyOuaaH6 xoMXIPSVdptK2w9L6ZJnySUTrWBq9UJsjkxSnOJ XnhZ9bZVMuOM7eZIm4vkSxGXNhu3DjEA0iLWBei QDtHLG3XJUxe9CkO7Rhr6MrSRLzRRWmyt0ocjRx KhRTaBDdTEUqgs81BGMdSQ0tU6jeAUPhRCGdxcR yqXQft7LxQVMhuUB0aQGxTS7QEsFNp83sOKYiCN PTstDxZTQxiRehfGY7sbV5qG7yBpXZyTYrEuLLH AhxrcUcYCXejp8xynAiWJWxSDJid3VjzWBfsKOv dlAyH0Ips3MqVRNnuo98UPeazLXjxg28GR1yJ0P mf0UcoI9kGBffXXXyl8IqwJXxgYSqKIKdy7RnQ6 kbgitnAXdydMVgeH2tKKRnXZc3ATGel8EnXDTcz 0TgKeLddcKeORXwWMBrJTSqoJ67TUN9nVxlqRem bqHjGN6dTCWkbmXyVVOrRQJqkR5cDIhqsvRcYXD fzpG6z4A0JEejECSxprQlRcvdJQL0jwWypqL3uE SdZ7vgrnjoNLmvNOVjc9PkiL2udRNQvLSxk8Sko PYgrGXRkZQjVD8tcoVgZQ9tRKY2OBtzESNSCQZd QAuiQGBkAJR7RZpcCfzhPTL2arBrLSYza4VpXHr qE7pkY50esSsfvRg5cIFrjQwwmBXipHNsDJOjog Z8o1X3BKYbh4GhzcbwNDXvya1= Gross assessment was performed at (test [facility] enter, code = 2777) Department of Pathology, [address] [place] [address], Technical component was performed at [facility] er, (test code = 2778) Department of Pathology, [address] [place] [address], Professional component was performed at [facility] enter, (test code = 2779) Department of Pathology, [address] [place], [place] [address], [facility] [id number] 15:26:00Surgical Pathology Report Case: [id number] Authorizing Provider: Sarahy Lopez MD Collected: 06/20/2020 04:09 PM Ordering Location: [place] [address] ICU Received: 06/24/2020 08:14 AM Pathologist: No Mueller MD Specimen: Biopsy, Gastric, Gastric Bx A. STOMACH, BIOPSY: - GASTRIC OXYNTIC MUCOSA WITH NO SIGNIFICANT DIAGNOSTIC ALTERATION. - NEGATIVE FOR HELICOBACTER PYLORI ORGANISMS BY WARTHIN STARRY STAIN. - NEGATIVE FOR INTESTINAL METAPLASIA, DYSPLASIA OR MALIGNANCY. Signing Pathologist Direct Phone Line: [phone] signed by No Mueller MD on 06/24/2020 at 3:26 [id number] BleedGastric biopsyReceived in formalin labeled the patient's name, accession number and "gastric biopsy" are 2 navarro-pink tissue fragments measuring up to0.4 cm in greatest dimension which are filtered and submitted in toto in A1.MARILUZ Varghese, HT (ASCP)Performed.The interpretation of this case included the use of immunohistochemistry or special stains.Warthin starryControl Slides Examined: In-house known positive controls were evaluated along with the test tissue. These control slides run alongside of the patients sample show appropriate staining. Internal positive and negative controls when available are evaluated Immunohistochemistry technical testing was performed at [facility], Pathology Laboratory where it was developed and its performance characteristics were determined. It has not been cleared or approved by the U.S. Food and Drug Administration. The FDA has determined that such clearance or approval is not necessary. The test is used for clinical purposes. It should not be regarded as investigational or for research. This laboratory is certified under the Clinical Laboratory Improvement Amendments of 1988 (CLIA-88) as qualified to perform high complexity clinical laboratory testing.[facility], Department of Pathology, [address] [place] [address], [facility], [address] [place] [address], Tel [facility], Department [facility], [address] [place] [address], EKK with platelet count + automated [id number] 08:50:00 Test Item Value Reference Range Interpretation Comments WBC (test code = 6690-2) 9.9 3.5- 10.5 K/L RBC (test code = 789-8) 2.67 4.63- 6.08 M/L L MCHC (test code = 786-4) 32.5 32.3- 36.5 GM/DL L Hematocrit (test code = 4544-3) 24.9 % 40.1-51 L MCV (test code = 787-2) 93.3 fL 79-92.2 H MCH (test code = 785-6) 30.3 pg 25.7-32.2 RDW (test code = 788-0) 18.6 % 11.6-14.4 H Platelets (test code = 777-3) 245 150- 450 K/CU MM MPV (test code = 60734-2) 10.5 fL 9.4-12.4 nRBC (test code = 413) 0 0- 0 /100 WBC Lab Interpretation (test code = Abnormal 45252-5) [facility] [id number] 08:50:00 Test Item Value Reference Range Interpretation Comments % Neutros (test code = 64 % 2816) % Lymphs (test code = 18 % 2817) % Monos (test code = 7 % 2818) % Eos (test code = 2819) 10 % % Baso (test code = 2820) 1 % % Myelo (test code = 1 % 0-0 H 2822) # Neutros (test code = 6.34 K/ul 1.78-5.38 H 2830) # Lymphs (test code = 1.78 K/ul 1.32-3.57 2831) # Monos (test code = 0.69 K/uL 0.3-0.82 2832) # Eos (test code = 2834) 0.99 K/uL 0.04-0.54 H # Baso (test code = 2835) 0.10 K/uL 0.01-0.08 H # Myelo (test code = 0.10 K/uL 0-0 H 2837) Total Counted (test code 100 = 1351) nRBC (manual) (test code 1 0- 0 /100 WBC H = 1353) Smudge Cells (test code = Present 1371) Giant Platelet (test code Present = 313) Polychromasia (test code 1+ few = 478) Anisocytosis (test code = 1+ few 961) Platelet Conc (test code Adequate = 3438) IVORY (test code = IVORY) Director Digital ID - Isis Austin comments: Slide comments: Lab Interpretation (test Abnormal code = 67679-9) [facility] & AUTO [id number] 08:50:00 Test Item Value Reference Range Interpretation Comments WHITE BLOOD CELL COUNT (BEAKER) 9.9 K/ L 3.5-10.5 (test code = 775) RED BLOOD CELL COUNT (BEAKER) 2.67 M/ L 4.63-6.08 L (test code = 761) HEMOGLOBIN (BEAKER) (test code = 8.1 GM/DL 13.7-17.5 L 410) HEMATOCRIT (BEAKER) (test code = 24.9 % 40.1-51.0 L 411) MEAN CORPUSCULAR VOLUME (BEAKER) 93.3 fL 79.0-92.2 H (test code = 753) MEAN CORPUSCULAR HEMOGLOBIN 30.3 pg 25.7-32.2 (BEAKER) (test code = 751) MEAN CORPUSCULAR HEMOGLOBIN CONC 32.5 GM/DL 32.3-36.5 (BEAKER) (test code = 752) RED CELL DISTRIBUTION WIDTH 18.6 % 11.6-14.4 H (BEAKER) (test code = 412) PLATELET COUNT (BEAKER) (test 245 K/CU MM 150-450 code = 756) MEAN PLATELET VOLUME (BEAKER) 10.5 fL 9.4-12.4 (test code = 754) NUCLEATED RED BLOOD CELLS 0 /100 WBC 0-0 (BEAKER) (test code = 413) (CELLAVISION MANUAL DIFF)2020-06-24 08:50:00 Test Item Value Reference Range Interpretation Comments NEUTROPHILS - REL 64 % (CELLAVISION)(BEAKER) (test code = 2816) LYMPHOCYTES - REL 18 % (CELLAVISION)(BEAKER) (test code = 2817) MONOCYTES - REL 7 % (CELLAVISION)(BEAKER) (test code = 2818) EOSINOPHILS - REL 10 % (CELLAVISION)(BEAKER) (test code = 2819) BASOPHILS - REL 1 % (CELLAVISION)(BEAKER) (test code = 2820) MYELOCYTES - REL 1 % 0-0 H (CELLAVISION)(BEAKER) (test code = 2822) NEUTROPHILS - ABS 6.34 K/ul 1.78-5.38 H (CELLAVISION)(BEAKER) (test code = 2830) LYMPHOCYTES - ABS 1.78 K/ul 1.32-3.57 (CELLAVISION)(BEAKER) (test code = 2831) MONOCYTES - ABS 0.69 K/uL 0.30-0.82 (CELLAVISION)(BEAKER) (test code = 2832) EOSINOPHILS - ABS 0.99 K/uL 0.04-0.54 H (CELLAVISION)(BEAKER) (test code = 2834) BASOPHILS - ABS 0.10 K/uL 0.01-0.08 H (CELLAVISION)(BEAKER) (test code = 2835) MYELOCYTES-ABS 0.10 K/uL 0.00-0.00 H (CELLAVISION)(BEAKER) (test code = 2837) TOTAL COUNTED (BEAKER) (test code 100 = 1351) MANUAL NRBC PER 100 CELLS (BEAKER) 1 /100 WBC 0-0 H (test code = 1353) SMUDGE CELLS (BEAKER) (test code = Present 1371) GIANT PLATELETS (BEAKER) (test Present code = 313) POLYCHROMATOPHILLIC RBCS(BEAKER) 1+ few (test code = 478) ANISOCYTOSIS (BEAKER) (test code = 1+ few 961) PLATELET CONCENTRATION Adequate (CELLAVISION)(BEAKER) (test code = 3438) Director Digital ID - Isis Austin comments: Slide comments:Basic Metabolic Panel 2020-06-24 06:47:00 Test Item Value Reference Range Interpretation Comments Sodium (test code = 140 meq/L 101-873 9556-2) Potassium (test code = 3.9 meq/L 3.5-5.1 2823-3) Chloride (test code = 107 meq/L 98-107 5-0) CO2 (test code = 28 meq/L 22-29 8-9) BUN (test code = 12 mg/dL 7-21 3094-0) Creatinine (test code 0.92 mg/dL 0.57-1.25 = 2160-0) Glucose (test code = 104 mg/dL 70-105 2345-7) Calcium (test code = 8.3 mg/dL 8.4-10.2 L 84090-4) EGFR (test code = 79 mL/min/1.[place] [address]-2) NOT ACCURATE CREATININE CLEARANCE IN PREDICTING GLOMERULAR FILTRATION RATE . ESTIMATED GFR I S NOT APPLICABLE FOR DIALYSIS PATIENTS. IVORY (test code = IVORY) Director Digital ID - [id number] Lab Interpretation Abnormal (test code = 25269-4) [facility] [id number] 06:47:00 Test Item Value Reference Range Interpretation Comments SODIUM (BEAKER) 140 meq/L 136-145 (test code = 381) POTASSIUM (BEAKER) 3.9 meq/L 3.5-5.1 (test code = 379) CHLORIDE (BEAKER) 107 meq/L 98-107 (test code = 382) CO2 (BEAKER) (test 28 meq/L 22-29 code = 355) BLOOD UREA NITROGEN 12 mg/dL 7-21 (BEAKER) (test code = 354) CREATININE (BEAKER) 0.92 mg/dL 0.57-1.25 (test code = 358) GLUCOSE RANDOM 104 mg/dL 70-105 (BEAKER) (test code = 652) CALCIUM (BEAKER) 8.3 mg/dL 8.4-10.2 L (test code = 697) EGFR (BEAKER) (test 79 mL/min/1.73 ESTIMA RITA GFR IS code = 1092) sq m NOT ACCURATE CREATININE CLEARANCE IN PREDICTING GLOMERULAR FILTRATION RATE . ESTIMATED GFR I S NOT APPLICABLE FOR DIALYSIS PATIEN TS. Director Digital ID - EDASIPOC-Glucose [id number] 06:07:00 Test Item Value Reference Range Interpretation Comments POC-Glucose Meter (test 101 mg/dL 70-110 : TE STED AT [facility] code = 1538) [address] [facility], 770 30: Director Digital/Techni nat ID = [id number] for ULLATTIL, JUD K Lab Interpretation (test Normal code = 72714-2) [facility] [id number] 06:07:00 Test Item Value Reference Range Interpretation Comments POC-GLUCOSE METER 101 mg/dL 70-110 : TESTED A T [facility] 67[address] (BEAKER) (test code = DAJUAN Davis [facility], 1538) [address]: Director Digital/Techni nat ID = [id number] for UL LATTIL, RIMA POCT-GLUCOSE [id number] 20:39:00 Test Item Value Reference Range Interpretation Comments POC-GLUCOSE METER 97 mg/dL 70-110 : TESTED A T [facility] 6720 (BEAKER) (test code = [facility], 153) [address]: Director Digital/Techni nat ID = [id number] for RIMA CHAUDHRY POCT-GLUCOSE [id number] 17:29:00 Test Item Value Reference Range Interpretation Comments POC-GLUCOSE METER 100 mg/dL 70-110 : TESTED A T [facility] 6720 (BEAKER) (test code = [facility], 153) [address]: Director Digital/Techni nat ID = [id number] for JOANA PEREYRA POCT-GLUCOSE [id number] 12:17:00 Test Item Value Reference Range Interpretation Comments POC-GLUCOSE METER 95 mg/dL 70-110 : TESTED A T [facility] 6720 (BEAKER) (test code = [facility], 153) [address]: Director Digital/Techni nat ID = [id number] for FAIT H JOANA CBC W/PLT COUNT & AUTO [id number] 11:41:00 Test Item Value Reference Range Interpretation Comments WHITE BLOOD CELL COUNT (BEAKER) 10.3 K/ L 3.5-10.5 (test code = 775) RED BLOOD CELL COUNT (BEAKER) 2.39 M/ L 4.63-6.08 L (test code = 761) HEMOGLOBIN (BEAKER) (test code = 7.4 GM/DL 13.7-17.5 L 410) HEMATOCRIT (BEAKER) (test code = 22.1 % 40.1-51.0 L 411) MEAN CORPUSCULAR VOLUME (BEAKER) 92.5 fL 79.0-92.2 H (test code = 753) MEAN CORPUSCULAR HEMOGLOBIN 31.0 pg 25.7-32.2 (BEAKER) (test code = 751) MEAN CORPUSCULAR HEMOGLOBIN CONC 33.5 GM/DL 32.3-36.5 (BEAKER) (test code = 752) RED CELL DISTRIBUTION WIDTH 18.4 % 11.6-14.4 H (BEAKER) (test code = 412) PLATELET COUNT (BEAKER) (test 205 K/CU MM 150-450 code = 756) MEAN PLATELET VOLUME (BEAKER) 10.3 fL 9.4-12.4 (test code = 754) NUCLEATED RED BLOOD CELLS 0 /100 WBC 0-0 (BEAKER) (test code = 413) (CELLAVISION MANUAL DIFF)2020-06-23 11:41:00 Test Item Value Reference Range Interpretation Comments NEUTROPHILS - REL 61 % (CELLAVISION)(BEAKER) (test code = 2816) LYMPHOCYTES - REL 25 % (CELLAVISION)(BEAKER) (test code = 2817) MONOCYTES - REL 8 % (CELLAVISION)(BEAKER) (test code = 2818) EOSINOPHILS - REL 4 % (CELLAVISION)(BEAKER) (test code = 2819) BASOPHILS - REL 2 % (CELLAVISION)(BEAKER) (test code = 2820) NEUTROPHILS - ABS 6.28 K/ul 1.78-5.38 H (CELLAVISION)(BEAKER) (test code = 2830) LYMPHOCYTES - ABS 2.58 K/ul 1.32-3.57 (CELLAVISION)(BEAKER) (test code = 2831) MONOCYTES - ABS 0.82 K/uL 0.30-0.82 (CELLAVISION)(BEAKER) (test code = 2832) EOSINOPHILS - ABS 0.41 K/uL 0.04-0.54 (CELLAVISION)(BEAKER) (test code = 2834) BASOPHILS - ABS 0.21 K/uL 0.01-0.08 H (CELLAVISION)(BEAKER) (test code = 2835) TOTAL COUNTED (BEAKER) (test code = 100 1351) SMUDGE CELLS (BEAKER) (test code = Present 1371) GIANT PLATELETS (BEAKER) (test code Present = 313) ANISOCYTOSIS (BEAKER) (test code = 1+ few 961) ARTIFACT (CELLAVISION)(BEAKER) Present (test code = 3432) PLATELET CONCENTRATION Adequate (CELLAVISION)(BEAKER) (test code = 3438) Director Digital ID - Isis Austin comments: Slide comments:POCT-GLUCOSE METER 2020-06-23 08:02:00 Test Item Value Reference Range Interpretation Comments POC-GLUCOSE METER 105 mg/dL 70-110 : TESTED A T [facility] 6720 (BEAKER) (test code = [facility], 153) [address]: Director Digital/Techni nat ID = [id number] for JOANA PEREYRA BASIC METABOLIC [id number] 07:04:00 Test Item Value Reference Range Interpretation Comments SODIUM (BEAKER) 138 meq/L 136-145 (test code = 381) POTASSIUM (BEAKER) 3.7 meq/L 3.5-5.1 (test code = 379) CHLORIDE (BEAKER) 107 meq/L 98-107 (test code = 382) CO2 (BEAKER) (test 23 meq/L 22-29 code = 355) BLOOD UREA NITROGEN 16 mg/dL 7-21 (BEAKER) (test code = 354) CREATININE (BEAKER) 0.94 mg/dL 0.57-1.25 (test code = 358) GLUCOSE RANDOM 107 mg/dL 70-105 H (BEAKER) (test code = 652) CALCIUM (BEAKER) 7.8 mg/dL 8.4-10.2 L (test code = 697) EGFR (BEAKER) (test 77 mL/min/1.73 ESTIMA RITA GFR IS code = 1092) sq m NOT ACCURATE CREATININE CLEARANCE IN PREDICTING GLOMERULAR FILTRATION RATE . ESTIMATED GFR I S NOT APPLICABLE FOR DIALYSIS PATIEN TS. Director Digital ID - EDASIPOCT-GLUCOSE [id number] 21:34:00 Test Item Value Reference Range Interpretation Comments POC-GLUCOSE METER 112 mg/dL 70-110 H : TESTED A T [facility] 6720 (BEAKER) (test code = [facility], 153) [address]: Director Digital/Techni nat ID = [id number] for [place] RBAJAL, DESTINEE POCT-GLUCOSE [id number] 18:08:00 Test Item Value Reference Range Interpretation Comments POC-GLUCOSE METER 104 mg/dL 70-110 : TESTED A T [facility] 6720 (BEAKER) (test code = [facility], 153) 93132: Director Digital/Techni nat ID = [id number] for Cortney Mackay POCT-GLUCOSE [id number] 12:55:00 Test Item Value Reference Range Interpretation Comments POC-GLUCOSE METER 89 mg/dL 70-110 : TESTED A T [facility] 6720 (BEAKER) (test code = [facility], 153) 97185: Director Digital/Techni nat ID = [id number] for INDER HERNÁNDEZ CBC W/PLT COUNT & AUTO [id number] 11:14:00 Test Item Value Reference Range Interpretation Comments WHITE BLOOD CELL COUNT (BEAKER) 12.3 K/ L 3.5-10.5 H (test code = 775) RED BLOOD CELL COUNT (BEAKER) 2.65 M/ L 4.63-6.08 L (test code = 761) HEMOGLOBIN (BEAKER) (test code = 8.0 GM/DL 13.7-17.5 L 410) HEMATOCRIT (BEAKER) (test code = 23.6 % 40.1-51.0 L 411) MEAN CORPUSCULAR VOLUME (BEAKER) 89.1 fL 79.0-92.2 (test code = 753) MEAN CORPUSCULAR HEMOGLOBIN 30.2 pg 25.7-32.2 (BEAKER) (test code = 751) MEAN CORPUSCULAR HEMOGLOBIN CONC 33.9 GM/DL 32.3-36.5 (BEAKER) (test code = 752) RED CELL DISTRIBUTION WIDTH 18.2 % 11.6-14.4 H (BEAKER) (test code = 412) PLATELET COUNT (BEAKER) (test 212 K/CU MM 150-450 code = 756) MEAN PLATELET VOLUME (BEAKER) 10.1 fL 9.4-12.4 (test code = 754) NUCLEATED RED BLOOD CELLS 0 /100 WBC 0-0 (BEAKER) (test code = 413) (CELLAVISION MANUAL DIFF)2020-06-22 11:14:00 Test Item Value Reference Range Interpretation Comments NEUTROPHILS - REL 73 % (CELLAVISION)(BEAKER) (test code = 2816) LYMPHOCYTES - REL 16 % (CELLAVISION)(BEAKER) (test code = 2817) MONOCYTES - REL 8 % (CELLAVISION)(BEAKER) (test code = 2818) EOSINOPHILS - REL 2 % (CELLAVISION)(BEAKER) (test code = 2819) BASOPHILS - REL 1 % (CELLAVISION)(BEAKER) (test code = 2820) NEUTROPHILS - ABS 8.98 K/ul 1.78-5.38 H (CELLAVISION)(BEAKER) (test code = 2830) LYMPHOCYTES - ABS 1.97 K/ul 1.32-3.57 (CELLAVISION)(BEAKER) (test code = 2831) MONOCYTES - ABS 0.98 K/uL 0.30-0.82 H (CELLAVISION)(BEAKER) (test code = 2832) EOSINOPHILS - ABS 0.25 K/uL 0.04-0.54 (CELLAVISION)(BEAKER) (test code = 2834) BASOPHILS - ABS 0.12 K/uL 0.01-0.08 H (CELLAVISION)(BEAKER) (test code = 2835) TOTAL COUNTED (BEAKER) (test code = 100 1351) SMUDGE CELLS (BEAKER) (test code = Present 1371) GIANT PLATELETS (BEAKER) (test code Present = 313) ANISOCYTOSIS (BEAKER) (test code = 1+ few 961) POIKILOCYTES (BEAKER) (test code = 1+ few 966) AVIS CELLS (BEAKER) (test code = 1+ few 474) PLATELET CONCENTRATION Adequate (CELLAVISION)(BEAKER) (test code = 3438) Director Digital ID - Isis Austin comments: Slide comments:POCT-GLUCOSE METER 2020-06-22 06:31:00 Test Item Value Reference Range Interpretation Comments POC-GLUCOSE METER 99 mg/dL 70-110 : TESTED A T [facility] 6720 (BEAKER) (test code = [facility] [place], 1538) [address]: Director Digital/Techni nat ID = [id number] for LILIANA JOHANSEN RIMA BASIC METABOLIC [id number] 06:28:00 Test Item Value Reference Range Interpretation Comments SODIUM (BEAKER) 138 meq/L 136-145 (test code = 381) POTASSIUM (BEAKER) 3.8 meq/L 3.5-5.1 (test code = 379) CHLORIDE (BEAKER) 109 meq/L 98-107 H (test code = 382) CO2 (BEAKER) (test 22 meq/L 22-29 code = 355) BLOOD UREA NITROGEN 18 mg/dL 7-21 (BEAKER) (test code = 354) CREATININE (BEAKER) 0.90 mg/dL 0.57-1.25 (test code = 358) GLUCOSE RANDOM 99 mg/dL 70-105 (BEAKER) (test code = 652) CALCIUM (BEAKER) 8.1 mg/dL 8.4-10.2 L (test code = 697) EGFR (BEAKER) (test 81 mL/min/1.73 ESTIMA RITA GFR IS code = 1092) sq m NOT ACCURATE CREATININE CLEARANCE IN PREDICTING GLOMERULAR FILTRATION RATE . ESTIMATED GFR I S NOT APPLICABLE FOR DIALYSIS PATIEN TS. Director Digital ID - EDASIPOCT-GLUCOSE [id number] 23:55:00 Test Item Value Reference Range Interpretation Comments POC-GLUCOSE METER 94 mg/dL 70-110 : TESTED A T [facility] 6720 (BEAKER) (test code = [facility], 1538) [address]: Director Digital/Techni nat ID = [id number] for LILIANA TTIL, RIMA [id number] 14:06:00 Test Item Value Reference Range Interpretation Comments Magnesium (test code = 1.9 mg/dL 1.6-2.6 27401-1) IVORY (test code = IVORY) Director Digital ID - AAHAMID Lab Interpretation (test Normal code = 57218-7) [facility] 14:06:00 Test Item Value Reference Range Interpretation Comments Phosphorus (test code = 2.3 mg/dL 2.3-4.7 2777-1) IVORY (test code = IVORY) Director Digital ID - AAHAMID Lab Interpretation (test Normal code = 81061-7) [facility] 14:06:00 Test Item Value Reference Range Interpretation Comments MAGNESIUM (BEAKER) (test code = 1.9 mg/dL 1.6-2.6 627) Director Digital ID - [id number] 14:06:00 Test Item Value Reference Range Interpretation Comments PHOSPHORUS (BEAKER) (test code = 2.3 mg/dL 2.3-4.7 604) Director Digital ID - AAHAMIDPOCT-GLUCOSE [id number] 11:19:00 Test Item Value Reference Range Interpretation Comments POC-GLUCOSE METER 138 mg/dL 70-110 H : TESTED A T [facility] 6720 (BEAKER) (test code = [facility], 1538) [address]: Director Digital/Techni nat ID = [id number] for [place] LLIAMS, ROSY CBC W/PLT COUNT & AUTO [id number] 07:57:00 Test Item Value Reference Range Interpretation Comments WHITE BLOOD CELL COUNT (BEAKER) 15.4 K/ L 3.5-10.5 H (test code = 775) RED BLOOD CELL COUNT (BEAKER) 2.85 M/ L 4.63-6.08 L (test code = 761) HEMOGLOBIN (BEAKER) (test code = 8.6 GM/DL 13.7-17.5 L 410) HEMATOCRIT (BEAKER) (test code = 24.9 % 40.1-51.0 L 411) MEAN CORPUSCULAR VOLUME (BEAKER) 87.4 fL 79.0-92.2 (test code = 753) MEAN CORPUSCULAR HEMOGLOBIN 30.2 pg 25.7-32.2 (BEAKER) (test code = 751) MEAN CORPUSCULAR HEMOGLOBIN CONC 34.5 GM/DL 32.3-36.5 (BEAKER) (test code = 752) RED CELL DISTRIBUTION WIDTH 17.9 % 11.6-14.4 H (BEAKER) (test code = 412) PLATELET COUNT (BEAKER) (test 195 K/CU MM 150-450 code = 756) MEAN PLATELET VOLUME (BEAKER) 10.3 fL 9.4-12.4 (test code = 754) NUCLEATED RED BLOOD CELLS 0 /100 WBC 0-0 (BEAKER) (test code = 413) (CELLAVISION MANUAL DIFF)2020-06-21 07:57:00 Test Item Value Reference Range Interpretation Comments NEUTROPHILS - REL 78 % (CELLAVISION)(BEAKER) (test code = 2816) LYMPHOCYTES - REL 9 % (CELLAVISION)(BEAKER) (test code = 2817) MONOCYTES - REL 10 % (CELLAVISION)(BEAKER) (test code = 2818) BASOPHILS - REL 1 % (CELLAVISION)(BEAKER) (test code = 2820) BANDS - REL (CELLAVISION)(BEAKER) 1 % 0-10 (test code = 2826) NEUTROPHILS - ABS 12.01 K/ul 1.78-5.38 H (CELLAVISION)(BEAKER) (test code = 2830) LYMPHOCYTES - ABS 1.39 K/ul 1.32-3.57 (CELLAVISION)(BEAKER) (test code = 2831) MONOCYTES - ABS 1.54 K/uL 0.30-0.82 H (CELLAVISION)(BEAKER) (test code = 2832) BASOPHILS - ABS 0.15 K/uL 0.01-0.08 H (CELLAVISION)(BEAKER) (test code = 2835) BANDS - ABS (CELLAVISION)(BEAKER) 0.15 K/uL 0.00-0.80 (test code = 2840) TOTAL COUNTED (BEAKER) (test code 100 = 1351) WBC MORPHOLOGY (BEAKER) (test code Normal = 487) PLT MORPHOLOGY (BEAKER) (test code Normal = 486) ANISOCYTOSIS (BEAKER) (test code = 1+ few 961) POIKILOCYTES (BEAKER) (test code = 1+ few 966) AVIS CELLS (BEAKER) (test code = 1+ few 474) ARTIFACT (CELLAVISION)(BEAKER) Present (test code = 3432) PLATELET CONCENTRATION Adequate (CELLAVISION)(BEAKER) (test code = 3438) Director Digital ID - Tasneem OverholtUser comments: Slide comments:BASIC METABOLIC PANEL 2020-06-21 07:15:00 Test Item Value Reference Range Interpretation Comments SODIUM (BEAKER) 136 meq/L 136-145 (test code = 381) POTASSIUM (BEAKER) 3.3 meq/L 3.5-5.1 L (test code = 379) CHLORIDE (BEAKER) 110 meq/L 98-107 H (test code = 382) CO2 (BEAKER) (test 21 meq/L 22-29 L code = 355) BLOOD UREA NITROGEN 30 mg/dL 7-21 H (BEAKER) (test code = 354) CREATININE (BEAKER) 0.92 mg/dL 0.57-1.25 (test code = 358) GLUCOSE RANDOM 99 mg/dL 70-105 (BEAKER) (test code = 652) CALCIUM (BEAKER) 8.1 mg/dL 8.4-10.2 L (test code = 697) EGFR (BEAKER) (test 79 mL/min/1.73 ESTIMA RTIA GFR IS code = 1092) sq m NOT ACCURATE CREATININE CLEARANCE IN PREDICTING GLOMERULAR FILTRATION RATE . ESTIMATED GFR I S NOT APPLICABLE FOR DIALYSIS PATIEN TS. Director Digital ID - PIAYA LPOCT-GLUCOSE [id number] 07:12:00 Test Item Value Reference Range Interpretation Comments POC-GLUCOSE METER 82 mg/dL 70-110 : TESTED A T [facility] 6720 (BEAKER) (test code = [facility], 1538) [address]961: Director Digital/Techni nat ID = [id number] for SUGU , SHEENAMOL POCT-GLUCOSE [id number] 00:07:00 Test Item Value Reference Range Interpretation Comments POC-GLUCOSE METER 111 mg/dL 70-110 H : TESTED A T [facility] 6720 (BEAKER) ([facility], = 1538) 83630: Director Digital/Techni nat ID = [id number] for SUGU , SHEENAMOL CBC (Hemogram only)2020-06-20 23:01:00 Test Item Value Reference Range Interpretation Comments WBC (test code = 6690-2) 16.0 3.5- 10.5 K/L H RBC (test code = 789-8) 2.75 4.63- 6.08 M/L L MCHC (test code = 786-4) 34.2 32.3- 36.5 GM/DL L Hematocrit (test code = 4544-3) 24.3 % 40.1-51 L MCV (test code = 787-2) 88.4 fL 79-92.2 MCH (test code = 785-6) 30.2 pg 25.7-32.2 RDW (test code = 788-0) 17.7 % 11.6-14.4 H Platelets (test code = 777-3) 194 150- 450 K/CU MM MPV (test code = 91557-7) 10.4 fL 9.4-12.4 nRBC (test code = 413) 0 0- 0 /100 WBC Lab Interpretation (test code = Abnormal 60826-2) [facility]2020-06-20 23:01:00 Test Item Value Reference Range Interpretation Comments WHITE BLOOD CELL COUNT (BEAKER) 16.0 K/ L 3.5-10.5 H (test code = 775) RED BLOOD CELL COUNT (BEAKER) 2.75 M/ L 4.63-6.08 L (test code = 761) HEMOGLOBIN (BEAKER) (test code = 8.3 GM/DL 13.7-17.5 L 410) HEMATOCRIT (BEAKER) (test code = 24.3 % 40.1-51.0 L 411) MEAN CORPUSCULAR VOLUME (BEAKER) 88.4 fL 79.0-92.2 (test code = 753) MEAN CORPUSCULAR HEMOGLOBIN 30.2 pg 25.7-32.2 (BEAKER) (test code = 751) MEAN CORPUSCULAR HEMOGLOBIN CONC 34.2 GM/DL 32.3-36.5 (BEAKER) (test code = 752) RED CELL DISTRIBUTION WIDTH 17.7 % 11.6-14.4 H (BEAKER) (test code = 412) PLATELET COUNT (BEAKER) (test 194 K/CU MM 150-450 code = 756) MEAN PLATELET VOLUME (BEAKER) 10.4 fL 9.4-12.4 (test code = 754) NUCLEATED RED BLOOD CELLS 0 /100 WBC 0-0 (BEAKER) (test code = 413) POCT-GLUCOSE [id number] 18:06:00 Test Item Value Reference Range Interpretation Comments POC-GLUCOSE METER 79 mg/dL 70-110 : TESTED A T [facility] 6720 ([facility]) (test code = [facility] [place], 1538) 14[address]: Director Digital/Techni nat ID = [id number] for ROSY ORDONEZ SARS-CoV2/RT-PCR (Asymptomatic ONLY)2020-06-20 17:06:00 Test Item Value Reference Range Interpretation Comments SARS-COV2/RT-PCR Negative Not Detected, (test code = Negative, See 21317-5) external report for linked test SARS-COV-2 [facility]EL[facility] PERFORMING LAB (test code = 75326-4) IVORY (test code = Negative result for this IVORY) test determines that SARS-CoV-2 RNA was not present in the [...] of the Act. Fact Sheet for Healthcare Providers:https://www.[employer]/sites/default/f anabell/product/documents/F act_Sheet_HC_Providers_L dcj_LGPH-FcN-7.pdf Fact Sheet for Healthcare Patients:https://www.[employer]/sites/default/fi les/product/documents/Fa ct_Sheet_Patients_Lyra_S ARS-CoV-2.pdf Performing Laboratory:[facility], [place] [address] [place], [place] [address]ARS-COV2/RT-PCR ([facility])2020-06-20 17:06:00 Test Item Value Reference Range Interpretation Comments SARS-COV2/RT-PCR (test Negative Not Detected, Negative, code = 6445608) See external report for linked test SARS-COV-[address] [facility] ROGELIO (test code = 7209658) Negative result for this test determines that SARS-CoV-2 RNA was not present in the specimen above the Limit of Detection (LOD). However, Negative results do not preclude SARS-CoV-2 infection and should not be used as the sole basis for treatment or patient management decisions. Negative results mustbe combined with clinical observations, patient history, and epidemiological information. A false negative result may occur if a specimen is improperly collected, transported or handled. A false negative result should be considered if patient's recent exposures or clinical presentation indicate that COVID-19 (SARS-CoV-2) is likely and diagnostic tests for other causes of illness are negative. Re-testing should be considered in cases of suspected false negatives.The limit of detection for this assay is 800 copies/mL.This SARS CoV-2 test is a real-time RT-PCR test intended for the qualitative detection of nucleic acid from SARS-CoV-2 in a nasopharyngeal swab specimen collected from individuals susp ected of COVID-19 by their healthcare provider.This test has not been Food and Drug [...] is revoked under Section 564(g) of the Act.Fact Sheet for Healthcare Providers:https://www.[employer]/sites/default/files/product/documents/Fact_Shee k_WB_Mavohtsfo_Lgoi_QMXR-UkQ-7.pdfFact Sheet for Healthcare Patients:https://www.[employer]/sites/default/files/product/ documents/Pgwl_Kidbt_Bebzhery_Kcwv_PKVX-PtF-4.pdfPerforming Laboratory:[facility], [place] [address]Vjzvyhsgvk and [id number] 16:27:00 Test Item Value Reference Range Interpretation Comments Hemoglobin (test code = 8.8 13.7- 17.5 GM/DL L 786-4) Hematocrit (test code = 24.9 % 40.1-51 L 4544-3) IVORY (test code = IVORY) Director Digital ID - [id number] Lab Interpretation (test Abnormal code = 44538-4) [facility] HospitalHEMOGLOBIN AND [id number] 16:27:00 Test Item Value Reference Range Interpretation Comments HEMOGLOBIN (BEAKER) (test code = 8.8 GM/DL 13.7-17.5 L 410) HEMATOCRIT (BEAKER) (test code = 24.9 % 40.1-51.0 L 411) Director Digital ID - [id number] 16:24:00 Test Item Value Reference Range Interpretation Comments Ferritin (test code = 99.40 ng/mL 5-275 2276-4) IVORY (test code = IVORY) Director Digital ID Med Mccray Lab Interpretation (test Normal code = 76391-6) [facility]IN2020-[facility] 16:24:00 Test Item Value Reference Range Interpretation Comments FERRITIN (BEAKER) (test code = 99.40 ng/mL 5.00-275.00 361) Director Digital ID - TYREE Mendez, TIBC, % sat. (without ferritin)2020-06-20 16:03:00 Test Item Value Reference Range Interpretation Comments Iron (test code = 2498-4) 107.0 ug/dL 40-160 TIBC (test code = 2500-7) 173 ug/dL 250-450 L Iron % Saturation (test 62 % 20-55 H code = 2502-3) IVORY (test code = IVORY) Director Digital ID Med Mccray Lab Interpretation (test Abnormal code = 93110-7) [facility] Hospital[facility]ON, TIBC, % SAT. (WITHOUT FERRITIN)2020-06-20 16:03:00 Test Item Value Reference Range Interpretation Comments IRON (BEAKER) (test code = 547) 107.0 ug/dL 40.0-160.0 TOTAL IRON BINDING CAPACITY 173 ug/dL 250-450 L (BEAKER) (test code = 769) IRON % SATURATION (2) (BEAKER) 62 % 20-55 H (test code = 2590) Director Digital ID - TYREE FABORH, [id number] 12:32:00 Test Item Value Reference Range Interpretation Comments ABO Grouping (test code = 2588) A Rh Factor (test code = 2589) NEG [facility] HospitalFibrinogen2020-12-24 12:22:00 Test Item Value Reference Range Interpretation Comments Fibrinogen (test code = 3255-7) 376 mg/dl 225-434 Lab Interpretation (test code = Normal 94941-2) [facility] HospitalProthrombin time/[id number] 12:22:00 Test Item Value Reference Range Interpretation Comments Protime (test code = 18.5 11.9- 14.2 H 5902-2) seconds INR (test code = 1.59 <=5.90 6301-6) IVORY (test code = IVORY) Effective 11/23/2018: PT Reference Range ChangeNew: 11.9-14.2 Previous: 11.7-14.7 RECOMMENDED COUMADIN/WARFARIN INR THERAPY RANGESSTANDARD DOSE: 2.0-3.0 Includes: PROPHYLAXIS for venous thrombosis, systemic embolization; TREATMENT for venous thrombosis and/or pulmonary embolus.HIGH RISK: Target INR is 2.5-3.5 for patients wiht mechanical heart valves. Lab Interpretation Abnormal (test code = 01916-9) [facility] HospitalaPTT2020-12-24 12:22:00 Test Item Value Reference Range Interpretation Comments PTT (test code = 01753-6) 32.4 22.5- 36.0 seconds Lab Interpretation (test code = Normal 76365-2) [facility] HospitalPROTHROMBIN TIME/[id number] 12:22:00 Test Item Value Reference Range Interpretation Comments PROTIME (BEAKER) (test code = 18.5 seconds 11.9-14.2 H 759) INR (BEAKER) (test code = 370) 1.59 <=5.90 Effective 11/23/2018: PT Reference Range ChangeNew: 11.9-14.2 Previous: 11.7- 14.7RECOMMENDED COUMADIN/WARFARIN INR THERAPY RANGESSTANDARD DOSE: 2.0-3.0 Includes: PROPHYLAXIS for venous thrombosis, systemic embolization; TREATMENT for venous thrombosis and/or pulmonary embolus.HIGH RISK: Target INR is2.5-3.5 for patients wiht mechanical heart valves.[id number] 12:22:00 Test Item Value Reference Range Interpretation Comments PARTIAL THROMBOPLASTIN TIME 32.4 seconds 22.5-36.0 (BEAKER) (test code = 760) [id number] 12:22:00 Test Item Value Reference Range Interpretation Comments FIBRINOGEN LEVEL (BEAKER) (test 376 mg/dl 225-434 code = 658) Type and screen, [id number] 12:12:00 Test Item Value Reference Range Interpretation Comments ABO/RH AUTOMATED (BEAKER) (test A NEGATIVE code = 2260) Ab Scrn (test code = 890-4) NEGATIVE [facility] HospitalComprehenve metabolic [id number] 12:01:00 Test Item Value Reference Range Interpretation Comments Protein, Total (test 5.3 6.0- 8.3 gm/dL L code = 2885-2) Albumin (test code = 2.9 g/dL 3.5-5 L 45424-9) Alkaline Phosphatase 35 U/L 40-150 L (test code = 6768-6) Total Bilirubin (test 0.5 mg/dL 0.2-1.2 code = 1975-2) Sodium (test code = 133 meq/L 136-145 L 2951-2) Potassium (test code = 3.4 meq/L 3.5-5.1 L 2823-3) Chloride (test code = 106 meq/L 98-107 2075-0) CO2 (test code = 19 meq/L 22-29 L 2028-9) BUN (test code = 54 mg/dL 7-21 H 3094-0) Creatinine (test code 1.06 mg/dL 0.57-1.25 = 2160-0) Glucose (test code = 110 mg/dL 70-105 H 2345-7) Calcium (test code = 7.9 mg/dL 8.4-10.2 L 76914-1) AST (test code = 31 U/L 5-34 1920-8) ALT (test code = 6 U/L 6-55 1742-6) EGFR (test code = 67 mL/min/1.73 [place] [address]-5) NOT ACCURATE CREATININE CLEARANCE IN PREDICTING GLOMERULAR FILTRATION RATE . ESTIMATED GFR I S NOT APPLICABLE FOR DIALYSIS PATIENTS. IVORY (test code = IVORY) Director Digital ID - [id number] Mccray [facility] Interpretation Abnormal (test code = 02064-7) [id number] 12:01:00 Test Item Value Reference Range Interpretation Comments TOTAL PROTEIN 5.3 gm/dL 6.0-8.3 L (BEAKER) (test code = 770) ALBUMIN (BEAKER) 2.9 g/dL 3.5-5.0 L (test code = 1145) ALKALINE PHOSPHATASE 35 U/L 40-150 L (BEAKER) (test code = 346) BILIRUBIN TOTAL 0.5 mg/dL 0.2-1.2 (BEAKER) (test code = 377) SODIUM (BEAKER) (test 133 meq/L 136-145 L code = 381) POTASSIUM (BEAKER) 3.4 meq/L 3.5-5.1 L (test code = 379) CHLORIDE (BEAKER) 106 meq/L 98-107 (test code = 382) CO2 (BEAKER) (test 19 meq/L 22-29 L code = 355) BLOOD UREA NITROGEN 54 mg/dL 7-21 H (BEAKER) (test code = 354) CREATININE (BEAKER) 1.06 mg/dL 0.57-1.25 (test code = 358) GLUCOSE RANDOM 110 mg/dL 70-105 H (BEAKER) (test code = 652) CALCIUM (BEAKER) 7.9 mg/dL 8.4-10.2 L (test code = 697) AST (SGOT) (BEAKER) 31 U/L 5-34 (test code = 353) ALT (SGPT) (BEAKER) 6 U/L 6-55 (test code = 347) EGFR (BEAKER) (test 67 mL/min/1.73 ESTIMA RITA GFR IS code = 1092) sq m NOT ACCURATE CREATININE CLEARANCE IN PREDICTING GLOMERULAR FILTRATION RATE . ESTIMATED GFR I S NOT APPLICABLE FOR DIALYSIS PATIEN TS. Director Digital ID Med [facility] [id number] 11:59:00 Test Item Value Reference Range Interpretation Comments MAGNESIUM (BEAKER) (test code = 1.8 mg/dL 1.6-2.6 627) Director Digital ID Med [facility] [id number] 11:59:00 Test Item Value Reference Range Interpretation Comments PHOSPHORUS (BEAKER) (test code = 1.8 mg/dL 2.3-4.7 L 604) Director Digital ID Med [facility] FHEMOGLOBIN AND [id number] 11:39:00 Test Item Value Reference Range Interpretation Comments HEMOGLOBIN (BEAKER) (test code = 9.4 GM/DL 13.7-17.5 L 410) HEMATOCRIT (BEAKER) (test code = 26.6 % 40.1-51.0 L 411) Director Digital ID - [id number] 00:00:00Ordered by an unspecified provider.[facility]
[2020-07-22] MEDS ORDERED: MORPHINE 4 MG/ML SYR ONE (20:16)
[2020-07-22 20:23] LABS: Absolute Lymphocytes (CBC) 1.6 K/uL (0.7-4.9); Basophils % 0.6 % (0-1.3); Hematocrit 38.7 % (39.6-49.0); Lymphocytes % 7.4 % (15.3-44.8); MPV 10.6 fL (7.6-11.3); RBC Red Blood Cell Count 4.15 M/uL (4.33-5.43)
[2020-07-22 20:37] LABS: Albumin 3.9 g/dL (3.4-5.0); Bilirubin Direct 0.1 mg/dL (0-0.2); Bilirubin Total 0.4 mg/dL (0.2-1.0); Protein, Total 8.3 g/dL (6.4-8.2); Troponin (Emerg Dept Use Only) 0.02 ng/mL (0.0-0.045)
[2020-07-22] MEDS ORDERED: PIPER/TAZO/NS 3.375gm 3.375 GM/100 ML BAG ONE (21:21)
[2020-07-22 21:34] LABS: Blood Morphology Comment NOT SEEN (NOT SEEN); Platelet Estimate ADEQ
[2020-07-22 22:12] LABS: Urine Blood TRACE (NEG); Urine Glucose NEGATIVE (NEG); Urine Protein 2+ (NEG); Urine pH 6.5 (5.0-7.0)
[2020-07-23] MEDS ORDERED: HYDRALAZINE HCL 20 MG/ML VIAL ONE (00:04)
--- NOTE | 2020-07-23 00:55 | ER ---
Nurse's Notes [facility] Name: Brennen Patel Age: 80 yrs Sex: Male : 1940 Arrival Date: 07/22/2020 Time: 18:17 Bed 20 Private MD: Ciro Soriano Diagnosis: Small bowel obstruction;Pancreatitis Presentation: 07/22 18:21 Chief complaint: Patient states: i am having some stomach pain and my blood pressure tw2 has been high, i was here the other day and they said i had pancreatitis, they gave me 2 units of blood, last bm today,i dont know if i have gas build up i ate some chili and beans to dinner, they sent me to [facility] in [place] and they run that tube down my throat and they said i had a bleeding ulcer. Coronavirus screen: At this time, the client does not indicate any symptoms associated with coronavirus-19. Ebola Screen: Patient denies travel to an Ebola-affected area in the 21 days before illness onset. Initial Sepsis Screen: Does the patient meet any 2 criteria? No. Patient's initial sepsis screen is negative. Does the patient have a suspected source of infection? No. Patient's initial sepsis screen is negative. Risk Assessment: Do you want to hurt yourself or someone else? Patient reports no desire to harm self or others. Onset of symptoms was July 22, 2020. 18:21 Method Of Arrival: Ambulatory tw2 18:21 Acuity: EL 2 tw2 Triage Assessment: 18:24 General: Appears in no apparent distress. Behavior is calm, cooperative, appropriate tw2 for age. Pain: Complains of pain in abdomen. GI: Abdomen is round non-distended, Reports lower abdominal pain, upper abdominal pain. Historical: - Allergies: 18:25 No Known Drug Allergies; tw2 - Home Meds: 18:25 Xarelto 20 mg Oral tab 1 tab once daily [Active]; pravastatin 40 mg Oral tab 1 tab once tw2 daily [Active]; metoprolol tartrate 25 mg Oral tab 1 tab 2 times per day [Active]; latanoprost 0.005 % ophthalmic drop 1 drop once daily [Active]; hydralazine 50 mg Oral tab 1 tab 4 times per day [Active]; - PMHx: 18:25 GERD; High Cholesterol; Hypertension; tw2 - PSHx: 18:25 None; tw2 - Immunization history:: Adult Immunizations. - Social history:: Smoking status: . Screenin:18 Abuse screen: Denies threats or abuse. Nutritional screening: No deficits noted. vg1 Tuberculosis screening: No symptoms or risk factors identified. Fall Risk No fall in past 12 months (0 pts). No secondary diagnosis (0 pts). IV access (20 points). Ambulatory Aid- None/Bed Rest/Nurse Assist (0 pts). Gait- Normal/Bed Rest/Wheelchair (0 pts) Mental Status- Oriented to own ability (0 pts). Total Caro Fall Scale indicates No Risk (0-24 pts). Assessment: 19:25 General: Appears in no apparent distress. comfortable, Behavior is calm, cooperative. vg1 Pain: Complains of pain in right lower quadrant and left lower quadrant Pain currently is 7 out of 10 on a pain scale. Quality of pain is described as dull. Neuro: Level of Consciousness is awake, alert, obeys commands, Oriented to person, place, time, situation. Cardiovascular: Patient's skin is warm and dry. Respiratory: Airway is patent Respiratory effort is even, unlabored, Respiratory pattern is regular, symmetrical. GI: Bowel sounds present X 4 quads. Abd is soft and non tender X 4 quads. Reports normal bowel habits, feels like trapped gas. Patient currently denies diarrhea, nausea, vomiting. : No signs and/or symptoms were reported regarding the genitourinary system. EENT: No signs and/or symptoms were reported regarding the EENT system. Derm: Skin is pink, warm \T\ dry. Musculoskeletal: Circulation, motion, and sensation intact. 20:16 Reassessment: Patient stated that his stomach may be hurting because he ate chili for vg1 lunch. 20:40 Reassessment: Patient appears in no apparent distress at this time. Patient and/or vg1 family updated on plan of care and expected duration. Pain level reassessed. Patient is alert, oriented x 3, equal unlabored respirations, skin warm/dry/pink. 21:49 Reassessment: Patient appears in no apparent distress at this time. Patient and/or vg1 family updated on plan of care and expected duration. Pain level reassessed. Patient is alert, oriented x 3, equal unlabored respirations, skin warm/dry/pink. Patient states feeling better. 23:16 Reassessment: Patient appears in no apparent distress at this time. Patient and/or vg1 family updated on plan of care and expected duration. Pain level reassessed. Patient is alert, oriented x 3, equal unlabored respirations, skin warm/dry/pink. Stated pain level 2/10. 07/23 00:00 Reassessment: Patient appears in no apparent distress at this time. Patient is alert, rr5 oriented x 3, equal unlabored respirations, skin warm/dry/pink. awaiting for other facility acceptance. 01:15 Reassessment: report given to najma ROE from [facility]. rr5 01:43 Reassessment: Patient appears in no apparent distress at this time. Patient is alert, rr5 oriented x 3, equal unlabored respirations, skin warm/dry/pink. patient complaining of abdominal pain,requested to have medication for the pain before he goes. ED provider aware with order made and carried out. report given to [facility] awake alert ambulatory vital signs taken and recorded. Vital Signs: 07/22 18:21 Pulse 64; Resp 18; Temp 98.4(TE); Pulse Ox 98% on R/A; Weight 74.84 kg; Height 5 ft. 8 tw2 in. (172.72 cm); Pain 7/10; 18:25 BP 222 / 80; tw2 18:27 BP 217 / 80 LA Sitting; tw2 19:30 BP 222 / 95; Pulse 67; Resp 16; Pulse Ox 100% on R/A; vg1 20:17 BP 191 / 68; Pulse 60; Resp 16; Pulse Ox 100% on R/A; vg1 20:30 BP 189 / 76; Pulse 96; Resp 16; Pulse Ox 96% on R/A; vg1 21:00 BP 166 / 68; Pulse 52; Resp 14; Pulse Ox 96% on R/A; vg1 22:00 BP 210 / 80; Pulse 58; Resp 18; Pulse Ox 98% on R/A; vg1 23:00 BP 211 / 91; Pulse 66; Resp 14; Pulse Ox 99% on R/A; vg1 07/23 00:00 BP 187 / 74; Pulse 62; Resp 17; Pulse Ox 100% ; rr5 01:15 BP 140 / 63; Pulse 66; Resp 16; Pulse Ox 96% ; rr5 01:40 BP 166 / 65; Pulse 69; Resp 17; Pulse Ox 98% on R/A; rr5 07/22 18:21 Body Mass Index 25.09 (74.84 kg, 172.72 cm) tw2 ED Course: 07/22 18:17 Patient arrived in ED. mr 18:17 Ciro Soriano, DO is Private Physician. mr 18:24 Triage completed. tw2 18:24 Arm band placed on. tw2 19:34 Marie Nina, BHUPINDER is Primary Nurse. vg1 19:35 Efren Pinto MD is Attending Physician. ps1 20:00 Inserted saline lock: 22 gauge in left wrist, using aseptic technique. ,using aseptic vg1 technique. Done by NILTON Manjarrez. 20:18 Patient has correct armband on for positive identification. Bed in low position. Call vg1 light in reach. Side rails up X2. wash driller on. Pulse ox on. NIBP on. 21:40 CT ANGIO ABD/PELVIS W CONTRAST In Process Unspecified. EDMS 22:36 initiated a transfer with Lauren Carrizales from [facility] [place]. mw2 23:13 COVID swab sent to lab. vg1 07/23 00:21 administrative approval given by Lauren Carrizales/ patient has been accepted to [facility] [address] bed 1547/ Dr. Whittington has accepted the patient in transfer/ report to be called to [phone]. 01:44 No provider procedures requiring assistance completed. Patient transferred, IV remains rr5 in place. intact, No redness/swelling at site. Administered Medications: 07/22 20:16 Drug: morphine 4 mg {Note: rass0.} Route: IVP; Site: left wrist; vg1 20:38 Follow up: Response: Pain is decreased vg1 23:43 Follow up: Response: No adverse reaction; Pain is decreased vg1 21:38 Drug: Zosyn 3.375 grams Route: IVPB; Infused Over: 60 mins; Site: left forearm; sg 07/23 00:00 Follow up: Response: No adverse reaction; IV Status: Completed infusion; IV Intake: rr5 100ml 00:01 Drug: hydrALAZINE 20 mg Route: IV; Rate: bolus; Site: left wrist; rr5 01:00 Follow up: Response: No adverse reaction; Blood pressure is lowered; IV Status: rr5 Completed infusion 01:40 Drug: morphine 4 mg {Note: rass 0.} Route: IVP; Site: left wrist; rr5 01:42 Follow up: Response: Other; administered upon transfer rr5 Intake: 00:00 IV: 100ml; Total: 100ml. rr5 Outcome: 00:55 ER care complete, transfer ordered by . ps1 01:44 Transferred by ground EMS to [facility], Transfer form completed. rr5 01:44 Condition: stable 01:44 Instructed on the need for transfer. 01:45 Patient left the ED. rr5 Signatures: Dispatcher [employer] EDMS Idris Avina, RN RN sg Diaz, Ana Laura perrin Dieter, Tracy, RN RN tw2 Efren Pinto MD MD ps1 Marielos, Caprice mw2 Arun Luque RN RN rr5 Marie Nina RN RN vg1 Corrections: (The following items were deleted from the chart) 07/22 18:24 18:21 Chief complaint: Patient states: i am having some stomach pain and my blood tw2 pressure has been high, i was here the other day and they said i had pancreatitis, they gave me 2 units of blood, last bm today,i dont know if i have gas build up i ate some chili and beans to dinner, they sent me to [facility] in [place] and they run that tube down my throat tw2 18:26 18:21 Acuity: EL 3 tw2 tw2 23:15 23:14 Inserted saline lock: 22 gauge in left wrist, using aseptic technique. ,using vg1 aseptic technique. Done by NILTON Manjarrez. vg1
--- NOTE | 2020-07-23 00:55 | EDPHYS ---
Physician Documentation [facility] Name: Brennen Patel Age: 80 yrs Sex: Male : 1940 Arrival Date: 07/22/2020 Time: 18:17 Bed 20 Private MD: Ciro Soriano ED Physician Efren Pinto HPI: 07/22 20:03 This 80 yrs old Male presents to ER via Ambulatory with complaints of ps1 Abdominal Pain. 20:03 Patient states that his blood pressure is elevated despite taking his BP medications ps1 this morning. He additionally attests to lower abdominal pain. 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 Pain is moderate. Associated with belching. States that he ate some chili and had gas but significant pain so came to ED. Additionally recent admission for GI bleed requiring transfusion with bleeding peptic ulcer. . Historical: - Allergies: 18:25 No Known Drug Allergies; tw2 - Home Meds: 18:25 Xarelto 20 mg Oral tab 1 tab once daily [Active]; pravastatin 40 mg Oral tab 1 tab once tw2 daily [Active]; metoprolol tartrate 25 mg Oral tab 1 tab 2 times per day [Active]; latanoprost 0.005 % ophthalmic drop 1 drop once daily [Active]; hydralazine 50 mg Oral tab 1 tab 4 times per day [Active]; - PMHx: 18:25 GERD; High Cholesterol; Hypertension; tw2 - PSHx: 18:25 None; tw2 - Immunization history:: Adult Immunizations. - Social history:: Smoking status: . ROS: 20:03 Constitutional: Negative for fever, chills, and weight loss, Eyes: Negative for injury, ps1 pain, redness, and discharge, Cardiovascular: Negative for chest pain, palpitations, and edema, Respiratory: Negative for shortness of breath, cough, wheezing, and pleuritic chest pain, MS/Extremity: Negative for injury and deformity, Skin: Negative for injury, rash, and discoloration, Neuro: Negative for headache, weakness, numbness, tingling, and seizure. 20:03 Abdomen/GI: Positive for abdominal pain, nausea, black/tarry stool. Exam: 20:03 Constitutional: This is a well developed, well nourished patient who is awake, alert, ps1 and in no acute distress. Head/Face: Normocephalic, atraumatic. Eyes: Pupils equal round and reactive to light, extra-ocular motions intact. Lids and lashes normal. Conjunctiva and sclera are non-icteric and not injected. Chest/axilla: Normal chest wall appearance and motion. Nontender with no deformity. No lesions are appreciated. Cardiovascular: Regular rate and rhythm. No gallops, murmurs, or rubs. Normal PMI, no JVD. No pulse deficits. Respiratory: Lungs have equal breath sounds bilaterally, clear to auscultation and percussion. No rales, rhonchi or wheezes noted. No increased work of breathing, no retractions or nasal flaring. Skin: Warm, dry with normal turgor. Normal color with no rashes, no lesions, and no evidence of cellulitis. MS/ Extremity: Pulses equal, no cyanosis. Neurovascular intact. Full, normal range of motion. 20:03 Abdomen/GI: Inspection: scar(s), are noted in the umbilical area and suprapubic area, Palpation: mild abdominal tenderness, in the left lower quadrant and right lower quadrant. Vital Signs: 18:21 Pulse 64; Resp 18; Temp 98.4(TE); Pulse Ox 98% on R/A; Weight 74.84 kg; Height 5 ft. 8 tw2 in. (172.72 cm); Pain 7/10; 18:25 BP 222 / 80; tw2 18:27 BP 217 / 80 LA Sitting; tw2 19:30 BP 222 / 95; Pulse 67; Resp 16; Pulse Ox 100% on R/A; vg1 20:17 BP 191 / 68; Pulse 60; Resp 16; Pulse Ox 100% on R/A; vg1 20:30 BP 189 / 76; Pulse 96; Resp 16; Pulse Ox 96% on R/A; vg1 21:00 BP 166 / 68; Pulse 52; Resp 14; Pulse Ox 96% on R/A; vg1 22:00 BP 210 / 80; Pulse 58; Resp 18; Pulse Ox 98% on R/A; vg1 23:00 BP 211 / 91; Pulse 66; Resp 14; Pulse Ox 99% on R/A; vg1 07/23 00:00 BP 187 / 74; Pulse 62; Resp 17; Pulse Ox 100% ; rr5 01:15 BP 140 / 63; Pulse 66; Resp 16; Pulse Ox 96% ; rr5 01:40 BP 166 / 65; Pulse 69; Resp 17; Pulse Ox 98% on R/A; rr5 07/22 18:21 Body Mass Index 25.09 (74.84 kg, 172.72 cm) tw2 MDM: 07/22 19:46 Patient medically screened. ps1 07/23 00:55 Differential diagnosis: gastritis, GI Bleed, Mesenteric ischemia or infarction, ps1 pancreatitis, Peptic Ulcer Disease, Perf. Duodenal Ulcer, Perf. Gastric Ulcer, SBO. Data reviewed: vital signs, nurses notes, lab test result(s), radiologic studies, and as a result, I will transfer patient. Counseling: I had a detailed discussion with the patient and/or guardian regarding: the historical points, exam findings, and any diagnostic results supporting the discharge/admit diagnosis, the presence of at least one elevated blood pressure reading (>120/80) during this emergency department visit, lab results, radiology results, the need to transfer to another facility. 07/22 19:48 Order name: Basic Metabolic Panel [facility] 07/22 19:48 Order name: CBC with Diff [facility] 07/22 19:48 Order name: Hepatic Function; Complete Time: 20:52 [facility] 07/22 19:48 Order name: Lipase; Complete Time: 20:52 [facility] 07/22 19:48 Order name: Troponin (emerg Dept Use Only); Complete Time: 20:52 [facility] 07/22 19:48 Order name: Basic Metabolic Panel; Complete Time: 20:52 [facility] 07/22 19:48 Order name: CBC with Automated Diff; Complete Time: 23:18 [facility] 07/22 20:48 Order name: Manual Differential; Complete Time: 23:18 [facility] 07/22 21:25 Order name: CT ANGIO ABD/PELVIS W CONTRAST [facility] 07/22 21:50 Order name: Urine Dipstick--Ancillary (enter results); Complete Time: 23:18 2 07/23 00:12 Order name: SARS-COV-2 RT PCR; Complete Time: 00:12 [facility]OR 07/22 19:48 Order name: IV Saline Lock; Complete Time: 20:16 [facility] 07/22 19:48 Order name: Labs collected and sent; Complete Time: 20:16 [facility] 07/22 19:48 Order name: Urine Dipstick-Ancillary (obtain specimen); Complete Time: 21:49 ps1 07/22 19:48 Order name: EKG; Complete Time: 19:49 ps1 Administered Medications: 07/22 20:16 Drug: morphine 4 mg {Note: rass0.} Route: IVP; Site: left wrist; vg1 20:38 Follow up: Response: Pain is decreased vg1 23:43 Follow up: Response: No adverse reaction; Pain is decreased vg1 21:38 Drug: Zosyn 3.375 grams Route: IVPB; Infused Over: 60 mins; Site: left forearm; sg 07/23 00:00 Follow up: Response: No adverse reaction; IV Status: Completed infusion; IV Intake: rr5 100ml 00:01 Drug: hydrALAZINE 20 mg Route: IV; Rate: bolus; Site: left wrist; rr5 01:00 Follow up: Response: No adverse reaction; Blood pressure is lowered; IV Status: rr5 Completed infusion 01:40 Drug: morphine 4 mg {Note: rass 0.} Route: IVP; Site: left wrist; rr5 01:42 Follow up: Response: Other; administered upon transfer rr5 Disposition: 07/23/20 00:[address] [facility]. Diagnosis are Small bowel obstruction, Pancreatitis. - Reason for transfer: Higher level of care. - Accepting physician is Nelsy. - Condition is Fair. - Problem is new. - Symptoms are unchanged. Signatures: Dispatcher [employer] EDMS Idris Avina RN RN sg Tracy Garcias RN RN tw2 Efren Pinto MD MD ps1 Arun Luque RN RN rr5 Marie Nina, RN RN vg1 Corrections: (The following items were deleted from the chart) 07/22 21:25 19:49 Abdomen Angio+CT.RAD.BRZ ordered. EDOR EDMS 23:22 22:37 CORONAVIRUS+MR.LAB.BRZ ordered. EDOR EDMS 07/23 01:45 00:55 07/23/2020 00:[address] [facility]. rr5 Diagnosis is Small bowel obstruction; Pancreatitis. Reason for transfer: Higher level of care. Accepting physician is Nesly. Condition is Fair. Problem is new. Symptoms are unchanged. ps1 01:45 01:45 07/23/2020 00:[address] [facility]. rr5 Diagnosis is Small bowel obstruction; Pancreatitis. Reason for transfer: Higher level of care. Accepting physician is Nelsy. Condition is Fair. Problem is new. Symptoms are unchanged. rr5
[2020-07-23 01:53] VITALS: TEMP 98.4
[2020-07-23] MEDS ORDERED: MORPHINE 4 MG/ML SYR ONE (01:53)
[2020-07-23 02:06] VITALS: BP 166/65; O2SAT 98
--- NOTE | 2020-07-23 10:38 | RAD REPORT ---
EXAM DESCRIPTION: CT - CT ANGIO ABD/PELVIS W CONTRAST - 07/23/2020 6:38 am CLINICAL HISTORY: The patient is 80 years old and is Male; abd pain. hx of Gi bleed TECHNIQUE: Axial computed tomographic angiography images of the abdomen and pelvis with intravenous contrast. Sagittal and coronal reformatted images were created and reviewed. This CT exam was per formed using one or more of the following dose reduction techniques: automated exposure control, ad justment of the mA and/or kV according to patient size, and/or use of iterative reconstruction techni que. MIP reconstructed images were created and reviewed. COMPARISON: CT of the abdomen and pelvis June 14, 2020 FINDINGS: VASCULATURE: AORTA: Atherosclerosis of the vasculature is present. No abdominal aortic aneurysm. No disse ction. CELIAC TRUNK AND MESENTERIC ARTERIES: No acute findings. No occlusion or significant stenosis. RENAL ARTERIES: No acute findings. No occlusion or significant stenosis. ILIAC ARTERIES: No acute findings. No occlusion or significant stenosis. LUNG BASES: Unremarkable. No mass. No consolidation. MEDIASTINUM: A moderate sized hiatal hernia is present. A portion of the pancreas, stomach, an d small bowel are located within the hiatal hernia. ABDOMEN: LIVER: Unremarkable. No mass. GALLBLADDER AND BILE DUCTS: Unremarkable. No calcified stones. No ductal dilation. PANCREAS: Unremarkable. No ductal dilation. No mass. SPLEEN: The spleen is surgically absent. ADRENALS: Unremarkable. No mass. KIDNEYS AND URETERS: Unremarkable. No hydronephrosis. No solid mass. STOMACH AND BOWEL: The stomach is distended with fluid. Several proximal and mid small bowel loo ps are dilated and fluid-filled. Surrounding inflammatory stranding is noted with adjacent edema in t he mesentery. The affected small bowel loops also demonstrate mucosal thickening. The distal small merlene wel is completely decompressed. A moderate amount of stool is present throughout the colon. Scattered colonic diverticula are noted without surrounding inflammation. PELVIS: APPENDIX: No findings to suggest acute appendicitis. BLADDER: Unremarkable. No mass. REPRODUCTIVE: Unremarkable as visualized. ABDOMEN and PELVIS: INTRAPERITONEAL SPACE: Free fluid is present within the right upper quadrant tracking along the paracolic gutter and into the pelvis. No free air. BONES/JOINTS: Healed left superior and inferior pubic rami fractures are noted. Multilevel degen erative change of the spine is present. Scoliotic curvature of the spine is present. No dislocati on. SOFT TISSUES: A small fat-containing right inguinal hernia is present. LYMPH NODES: Unremarkable. No enlarged lymph nodes. OTHER FINDINGS: Surgical clips are present within the left upper quadrant. IMPRESSION: 1. Findings consistent with a small bowel obstruction involving several small bowel lo ops within the proximal and mid abdomen. The more distal affected small bowel loops are inflamed with surrounding edema in the mesentery. A definite transition point is not seen. However, given the appe arance, an internal hernia is not completely excluded. Small bowel distally is completely decompresse d. 2. No evidence of the aortic aneurysm or dissection. No evidence of vascular occlusion or active GI hemorrhage. Electronically signed by: Ade Ortiz MD 07/22/2020 10:04 PM SOLID WASTE DISPOSAL MANAGER Due to temporary technical issues with the PACS/Fluency reporting system, reports are being signed by the in house radiologist without review as a courtesy to ensure prompt reporting. The interpreting r adiologist is fully responsible for the content of the report.
--- NOTE | 2020-07-24 06:31 | EKG ---
Test Date: 2020-07-22 Test Time: 20:05:53 Poultry Husbandry Teacher: LAURA MEASUREMENT RESULTS: Intervals: Rate: 59 VA: 152 QRSD: 80 QT: 456 QTc: 451 [place]: P: 68 VA: 152 QRS: -37 T: 38 INTERPRETIVE STATEMENTS: Sinus bradycardia with sinus arrhythmia Left axis deviation Minimal voltage criteria for LVH, may be normal variant Septal infarct, age undetermined Abnormal ECG Compared to ECG 06/19/2020 22:56:39 Left-axis deviation now present Left ventricular hypertrophy now present Atrial fibrillation no longer present Ventricular premature complex(es) no longer present ST (T wave) deviation no longer present Myocardial infarct finding still present Electronically Signed On 07-24-20 06:27:26 ACCOUNT RESOLUTION EXPERT by Kemar Duncan
== END 2020-07-23 01:45 | disposition short-term general hospital (02) ==
LOC: ER 18:13
DX: K56.609 Unspecified intestinal obstruction, unspecified as to partial versus complete obstruction (principal); K85.90 Acute pancreatitis without necrosis or infection, unspecified; I10 Essential (primary) hypertension; E78.00 Pure hypercholesterolemia, unspecified; K21.9 Gastro-esophageal reflux disease without esophagitis; Z79.01 Long term (current) use of anticoagulants
CPT/HCPCS: 93005; 85025; 80048; 36415; 80076; 81003; 84484; 83690; 74174; U0003; Q9967; J2543; 99285

== ENCOUNTER 2020-12-17 14:33 | Emergency (ER) | payer OTHER, MEDICARE ==
--- OUTSIDE RECORDS SUMMARY | 2020-12-17 14:38 | XMS REPORT | Continuity of Care Document ---
:1940 Author Organization [facility] t Address [address] [place] [address] Dr. [address] [place] [address] Care Team Providers Name Role Phone Pcp MD Primary Care Physician Unavailable Deric BERG Attending Clinician Michael Jerome MD Attending Clinician Jayna Arizmendi MD Attending Clinician Jacqueline BERG Attending Clinician DERIC Attending Clinician Unavailable Honorio Mata MD Attending Clinician Bo BERG, Wesley Attending Clinician Lakhwinder Seymour MD Attending Clinician Luis Gongora MD Attending Clinician Jessica BERG, Siva Attending Clinician HONORIO MATA Attending Clinician Unavailable JACQUELINE Admitting Clinician Unavailable HONORIO MATA Admitting Clinician Unavailable Payers Payer Name Policy Type Policy Effective Date Expiration Date Sour ce Number MEDICAREMEDICARE A [id number] 2005 [facility] [place] [id number] 2004- 00:00:00 - Medical PresentMedicare Center [facility] [id number] 2019 SUMMER [place] SUPPLEMENT/INDIVIDUALA 00:00:00 - [id number] -PresentMedigap Problems Condition Condition Condition Status Onset Resolution Last Treating Co mments Source Name Details Category Date Date Treatment Clinician Date Small Small Disease Active [facility] bowel bowel 07-23 [facility] - obstructio obstructio 00:00: Me dical n n 00 Center GI bleed GI bleed Disease [facility] 2019[facility]06 [facility] - [facility]: Medical [address] [place] [address] Allergies, Adverse Reactions, Alerts This patient has no known allergies or adverse reactions. Social History Social Habit Start Date Stop Date Quantity Comments Source Sex Assigned At [facility] Tobacco use and 2020-07-23 2020-07-23 Never used [facility] - exposure 00:00:00 00:00:00 [facility] Alcohol intake 2020-07-23 2020-07-23 Ex-drinker [facility] es - 00:00:00 00:00:00 (finding) [facility] Tobacco Comment 2020-06-21 2020-06-21 from ages 14-25 [facility] - 00:00:00 00:00:00 [facility] Smoking Status Start Date Stop Date Source Former smoker 2020-07-23 00:00:00 2020-07-23 00:00:00 [facility] Medications Ordered Filled Start Stop Current Ordering Indication Dosage Frequency Signature Comments Components Source Medication Medication Date Date Medication? Clinician (SIG) Name Name hydrALAZINE Yes 50mg Q.25D Take [address] [facility] (APRESOLINE - by mouth 4 [place] kes - ) 50 MG 15:21: (four) Medical tablet 55 times Center daily. aspirin 81 Yes 81mg QD Take [address] MG chewable 07-24 by mouth [facility] - tablet 15:21: daily. Medical Center apixaban 2020- No 2.5mg Q.5D Take 1 [facility] (ELIQUIS) 07-01 tablet [facility] - 2.5 mg Tab 00:00: 00:00 (2.5 mg Med ical tablet 00 :00 total) by Center mouth 2 (two) times daily. pantoprazol 2019-06 Yes 40mg Q.5D Take [address] [facility] 2-28 tablet (40 [facility] - (PROTONIX) 00:00: mg total) Me dical 40 MG 00 by mouth 2 Center tablet (two) times daily. sucralfate 2019-06- No 1g Q.25D Take [address] (CARAFATE) 08-25 tablet (1 Mike es - 1 gram 00:00: 23:59 g total) Medica l tablet 00 :00 by mouth 4 Center (four) times daily for 30 days. apixaban 2019-06 No 2.5mg Q.5D Take 1 [facility] [...] MG 00 times Center tablet daily. hydrALAZINE 2019-06 No TK [address] [facility] (APRESOLINE 2-06-24 QID [facility] - ) 50 MG 00:00: 00:00 Medical tablet 00 :00 [place] Xarelto 20 2019-06 No TK [address] [facility] mg Tab 07-20 QD WITH [facility] - tablet 00:00: 00:00 [facility] Medical 00 :00 MEAL Center latanoprost 2019-[address] [facility] (XALATAN) 1-21 the right [facility] - 0.005 % 00:00: eye Medical ophthalmic 00 nightly . Cent er solution pravastatin 2019-06 Yes TK [address] [facility] (PRAVACHOL) 0-28 HS. [facility] - 40 MG 00:00: Medical tablet 00 Center Vital Signs Vital Name Observation Time Observation Value Comments Source Systolic blood 2020-07-24 12:18:00 122 mm[Hg] [facility] pressure [facility] Diastolic blood 2020-07-24 12:18:00 61 mm[Hg] [facility] pressure [facility] Heart rate 2020-07-24 12:18:00 72 /min [facility] Body temperature 2020-07-24 12:18:00 36.61 Yaz [facility] Respiratory rate 2020-07-24 12:18:00 18 /min [facility] Oxygen saturation in 2020-07-24 12:18:00 99 /min [facility] - Arterial blood by Medical Ce nter Pulse oximetry Body height 2020-07-23 03:19:00 172.7 cm [facility] Body weight 2020-07-23 03:19:00 72.576 kg [facility] BMI 2020-07-23 03:19:00 24.33 kg/m2 [facility] Procedures Procedure Date / Time Performed Performing Clinician Sour e CBC W/PLT COUNT & AUTO 2020-07-24 04:26:00 Glenn Abdalla [facility] BASIC METABOLIC PANEL (7) 2020-07-24 04:26:00 Glenn Abdalla [facility] (CELLAVISION MANUAL DIFF) 2020-07-24 04:26:00 Glenn Abdalla [facility] FL UPPER GI W SMALL BOWEL 2020-07-23 16:50:00 Vinita Bynum [facility] US RENAL COMPLETE 2020-07-23 08:07:00 [facility]OLIC [facility]EL (7) 2020-07-23 06:37:00 Jacqueline Jerold [facility] HEPATIC FUNCTION PANEL 2020-07-23 06:37:00 [facility] LIPASE 2020-07-23 06:37:00 [facility] LIPID PANEL 2020-07-23 06:37:00 [facility] CBC W/PLT COUNT & AUTO 2020-07-23 05:20:00 [facility] (CELLAVISION MANUAL DIFF) 2020-07-23 05:20:00 Jacqueline Jerold [facility] REPORT OF PROCEDURE - 2020-07-23 00:00:00 Elsa Chen [facility] ENDOSCOPY SCAN Scanning [facility] POCT-GLUCOSE METER 2020-06-24 05:56:00 Mariluz Soriano [facility] BASIC METABOLIC PANEL (7) 2020-06-24 05:16:00 Mariluz Soriano [facility] CBC W/PLT COUNT & AUTO 2020-06-24 05:16:00 Mariluz Soriano [facility] (CELLAVISION MANUAL DIFF) 2020-06-24 05:16:00 [facility] PO[facility]SE METER 2020-06-23 20:26:00 Mariluz Soriano [facility] POCT-GLUCOSE METER 2020-06-23 17:18:00 [facility] POCT-GLUCOSE METER 2020-06-23 12:04:00 [facility] POCT-GLU[facility]SE METER 2020-06-23 07:50:00 [facility] W/PLT COUNT & AUTO 2020-06-23 05:23:00 Mariluz Soriano [facility] (CELLAVISION MANUAL DIFF) 2020-06-23 05:23:00 [facility] BASIC METABOLIC PANEL (7) 2020-06-23 05:23:00 [facility] POCT-GLUCOSE METER 2020-06-22 21:20:00 [facility] POCT-GLUCOSE METER 2020-06-22 17:57:00 [facility] POCT-GLUCOSE METER 2020-06-22 12:43:00 Mariluz Soriano [facility] POCT-GLUCOSE METER 2020-06-22 06:07:00 Bo [facility] CBC W/PLT COUNT & AUTO 2020-06-22 04:58:00 Mariluz Soriano [facility] (CELLAVISION MANUAL DIFF) 2020-06-22 04:58:00 Bo [facility] BASIC METABOLIC PANEL (7) 2020-06-22 04:58:00 Mariluz Sorianood [facility] POCT-GLUCOSE METER 2020-06-21 23:44:00 SorianoMariluz Wesley [facility] POCT-GLUCOSE METER 2020-06-21 11:06:00 Madeline Milo [facility] POCT-GLUCOSE METER 2020-06-21 06:59:00 Milo Mata [facility] CBC W/PLT COUNT & AUTO 2020-06-21 06:39:00 Scott Brooks [facility] (CELLAVISION MANUAL DIFF) 2020-06-21 06:39:00 Scott Brooks [facility] BASIC METABOLIC PANEL (7) 2020-06-21 06:39:00 Scott Brooks [facility] PHOSPHORUS 2020-06-21 06:39:00 Antonio [facility] MAGNESIUM 2020-06-21 06:39:00 Antonio [facility] POCT-GLUCOSE METER 2020-06-20 23:54:00 HotzeMilo [facility] CBC (HEMOGRAM ONLY) 2020-06-20 22:55:00 Loki Crouch [facility] POCT-GLUCOSE METER 2020-06-20 17:51:00 Milo Mata Honorio [facility] REPORT OF PROCEDURE - 2020-06-20 16:44:30 Jessica [facility] TISSUE EXAM 2020-06-20 16:09:[address] [facility] UPPER ENDOSCOPY,BIOPSY 2020-06-20 15:47:[address] [facility] HEMOGLOBIN AND HEMATOCRIT 2020-06-20 14:48:00 Milo Mata [facility] marquise [facility] FERRITIN 2020-06-20 14:48:00 Ze [facility] IRON, TIBC, % SAT. 2020-06-20 14:48:00 Ze [facility] (WITHOUT FERRITIN) [facility] PROTHROMBIN TIME/INR 2020-06-20 11:43:00 Hotze, Milo Silva [facility] APTT 2020-06-20 11:43:00 Hotze, Milo Olmedo [facility] FIBRINOGEN 2020-06-20 11:43:00 Hotze, Milo Olmedo [facility] ABORH, MANUAL 2020-06-20 11:36:00 Maggie Jacobs [facility] HEMOGLOBIN AND HEMATOCRIT 2020-06-20 11:28:00 Hotze, Milo camarillo [facility] TYPE AND SCREEN, 2020-06-20 11:27:00 Hotze, Milo Olmedo [facility] AUTOMATED [facility] SARS-COV2/RT-PCR ([facility] & 2020-06-20 11:24:00 Hotze, Milo hines [facility] - REF LABS) [facility] COMPREHENSIVE METABOLIC 2020-06-20 11:24:00 Hotze, Milo borges [facility] PANEL [facility] Center PHOSPHORUS 2020-06-20 11:24:00 Hotze, Milo Olmedo [facility] MAGNESIUM 2020-06-20 11:24:00 Hotze, Milo Olmedo [facility] REPORT OF PROCEDURE - 2020-06-20 00:00:00 Provider, Elsa [facility] ENDOSCOPY SCAN Scanning [facility] Plan of Care Planned Activity Planned Date Details Comments Source Future Scheduled 2021-02-[address] [facility] - Test 00:00:00 (Season Ended) [code = [facility] INFLUENZA VACCINE (Season Ended)] Future Scheduled 2020-06-[address] [facility] - Test 00:00:00 (12+) [code = Medical Center DEPRESSION SCREENING (12+)] Future Scheduled 2006-03-[address] [facility] - Test 00:00:00 WELLNESS (YEAR 2 or Medical Center FIRST YEAR if no IPPE) [code = MEDICARE ANNUAL WELLNESS (YEAR 2 or FIRST YEAR if no IPPE)] Future Scheduled 2005 PNEUMOCOCCAL 65+ YRS [facility] - Test 00:00:00 (1 of 1 - Medical Center [id number] [id number]) [code = PNEUMOCOCCAL 65+ YRS (1 of 1 - [id number] PCV13)] Future Scheduled 1990 SHINGLES VACCINES ([address] [facility] - Test 00:00:00 of 2) [code = SHINGLES Medic al Center VACCINES (1 of 2)] Future Scheduled 1959 DTAP/TDAP/TD VACCINES [facility] - Test 00:00:00 (1 - Tdap) [code = Medical C enter DTAP/TDAP/TD VACCINES (1 - Tdap)] Results Test Description Test Time Test Comments Results Result Comments Source CBC with platelet count + automated diff 2020-07-24 09:38:00 Test Item Value Reference Range Interpretation Comme nts WBC (test code = 6690-2) 11.8 See_Comment H [A utomated message] The system which generated this result transmitted ref erence range: 3.5 - 10.5 K/L. T he reference range was not u sed to interpret this result as normal/abnormal. RBC (test code = 789-8) 3.31 See_Comment L [Au tomated message] The system which generated this result transmitted ref erence range: 4.63 - 6.08 M/ L. The reference range was not u sed to interpret this result as normal/abnormal. MCHC (test code = 786-4) 31.9 See_Comment L [A utomated message] The system which generated this result transmitted ref erence range: 32.3 - 36.5 GM/ DL. The reference range was not u sed to interpret this result as normal/abnormal. Hematocrit (test code = 31.7 % 40.1-51 L 4544-3) MCV (test code = 787-2) 95.8 fL 79-92.2 H MCH (test code = 785-6) 30.5 pg 25.7-32.2 RDW (test code = 788-0) 16.4 % 11.6-14.4 H Platelets (test code = 777-3) 218 See_Comment [Automated message] The system which generated this result transmitted ref erence range: 150 - 450 K/CU MM. The reference range was not u sed to interpret this result as normal/abnormal. MPV (test code = 46441-7) 12.1 fL 9.4-12.4 nRBC (test code = 413) 0 See_Comment [Aut omated message] The system which generated this result transmitted ref erence range: 0 - 0 /100 WBC. The reference range was not used to interpret this result as amalia l/abnormal. Lab Interpretation (test code Abnormal = 27509-9) [facility] [id number] 09:38:00 Test Item Value Reference Range Interpretation Comments % Neutros (test code = 77 % 2816) % Lymphs (test code = 7 % 2817) % Monos (test code = 15 % 2818) % Eos (test code = 1 % 2819) # Neutros (test code = 9.09 K/ul 1.78-5.38 H 2830) # Lymphs (test code = 0.83 K/ul 1.32-3.57 L 2831) # Monos (test code = 1.77 K/uL 0.3-0.82 H 2832) # Eos (test code = 0.12 K/uL 0.04-0.54 2834) Total Counted (test 100 code = 1351) WBC Morphology (test Normal code = 487) Giant Platelet (test Present code = 313) Hypochromia (test code 1+ few = 963) Anisocytosis (test code 1+ few = 961) Macrocytes (test code = 1+ few 964) Poikilocytes (test code 1+ few = 966) Spherocytes (test code 1+ few = 768) Ovalocytes (test code = 1+ few 477) Stomatocytes (test code 1+ few = 479) [place] Cells (test code = 1+ few 474) Platelet Conc (test Adequate code = 3438) IVORY (test code = IVORY) Plush Brusher ID - Laura Adama comments: Slide comments: Lab Interpretation Abnormal (test code = 62539-6) [facility] W/PLT COUNT & AUTO [id number] 09:38:00 Test Item Value Reference Range Interpretation Comments WHITE BLOOD CELL COUNT (BEAKER) 11.8 K/ L 3.5-10.5 H (test code = 775) RED BLOOD CELL COUNT (BEAKER) 3.31 M/ L 4.63-6.08 L (test code = 761) HEMOGLOBIN (BEAKER) (test code = 10.1 GM/DL 13.7-17.5 L 410) HEMATOCRIT (BEAKER) (test code = 31.7 % 40.1-51.0 L 411) MEAN CORPUSCULAR VOLUME (BEAKER) 95.8 fL 79.0-92.2 H (test code = 753) MEAN CORPUSCULAR HEMOGLOBIN 30.5 pg 25.7-32.2 (BEAKER) (test code = 751) MEAN CORPUSCULAR HEMOGLOBIN CONC 31.9 GM/DL 32.3-36.5 L (BEAKER) (test code = 752) RED CELL DISTRIBUTION WIDTH 16.4 % 11.6-14.4 H (BEAKER) (test code = 412) PLATELET COUNT (BEAKER) (test 218 K/CU MM 150-450 code = 756) MEAN PLATELET VOLUME (BEAKER) 12.1 fL 9.4-12.4 (test code = 754) NUCLEATED RED BLOOD CELLS 0 /100 WBC 0-0 (BEAKER) (test code = 413) (CELLAVISION MANUAL DIFF)2020-07-24 09:38:00 Test Item Value Reference Range Interpretation Comments NEUTROPHILS - REL 77 % (CELLAVISION)(BEAKER) (test code = 2816) LYMPHOCYTES - REL 7 % (CELLAVISION)(BEAKER) (test code = 2817) MONOCYTES - REL 15 % (CELLAVISION)(BEAKER) (test code = 2818) EOSINOPHILS - REL 1 % (CELLAVISION)(BEAKER) (test code = 2819) NEUTROPHILS - ABS 9.09 K/ul 1.78-5.38 H (CELLAVISION)(BEAKER) (test code = 2830) LYMPHOCYTES - ABS 0.83 K/ul 1.32-3.57 L (CELLAVISION)(BEAKER) (test code = 2831) MONOCYTES - ABS 1.77 K/uL 0.30-0.82 H (CELLAVISION)(BEAKER) (test code = 2832) EOSINOPHILS - ABS 0.12 K/uL 0.04-0.54 (CELLAVISION)(BEAKER) (test code = 2834) TOTAL COUNTED (BEAKER) (test code = 100 1351) WBC MORPHOLOGY (BEAKER) (test code Normal = 487) GIANT PLATELETS (BEAKER) (test code Present = 313) HYPOCHROMIA (BEAKER) (test code = 1+ few 963) ANISOCYTOSIS (BEAKER) (test code = 1+ few 961) MACROCYTES (BEAKER) (test code = 1+ few 964) POIKILOCYTES (BEAKER) (test code = 1+ few 966) SPHEROCYTES (BEAKER) (test code = 1+ few 768) OVALOCYTES (BEAKER) (test code = 1+ few 477) STOMATOCYTES (BEAKER) (test code = 1+ few 479) AVIS CELLS (BEAKER) (test code = 1+ few 474) PLATELET CONCENTRATION Adequate (CELLAVISION)(BEAKER) (test code = 3438) Plush Brusher ID - Laura Galan comments: Slide comments:Basic Metabolic [id number] 06:19:00 Test Item Value Reference Range Interpretation Comments Sodium (test code = 142 meq/L 504-430 4951-2) Potassium (test code = 3.4 meq/L 3.5-5.1 L 2823-3) Chloride (test code = 108 meq/L 98-107 H 2075-0) CO2 (test code = 26 meq/L 22-29 2028-9) BUN (test code = 14 mg/dL 7-21 3094-0) Creatinine (test code 1.05 mg/dL 0.57-1.25 = 2160-0) Glucose (test code = 90 mg/dL 70-105 2345-7) Calcium (test code = 8.7 mg/dL 8.4-10.2 27114-9) EGFR (test code = 68 mL/min/1.73 [place] [address]-7) NOT ACCURATE CREATININE CLEARANCE IN PREDICTING GLOMERULAR FILTRATION RATE . ESTIMATED GFR I S NOT APPLICABLE FOR DIALYSIS PATIENTS. IVORY (test code = IVORY) Plush Brusher ID - CHANO Cowart Lab Interpretation Abnormal (test code = 88038-7) [facility] MET[facility]OLIC [id number] 06:19:00 Test Item Value Reference Range Interpretation Comments SODIUM (BEAKER) 142 meq/L 136-145 (test code = 381) POTASSIUM (BEAKER) 3.4 meq/L 3.5-5.1 L (test code = 379) CHLORIDE (BEAKER) 108 meq/L 98-107 H (test code = 382) CO2 (BEAKER) (test 26 meq/L 22-29 code = 355) BLOOD UREA NITROGEN 14 mg/dL 7-21 (BEAKER) (test code = 354) CREATININE (BEAKER) 1.05 mg/dL 0.57-1.25 (test code = 358) GLUCOSE RANDOM 90 mg/dL 70-105 (BEAKER) (test code = 652) CALCIUM (BEAKER) 8.7 mg/dL 8.4-10.2 (test code = 697) EGFR (BEAKER) (test 68 mL/min/1.73 ESTIMA FRAN GFR IS code = 1092) sq m NOT ACCURATE CREATININE CLEARANCE IN PREDICTING GLOMERULAR FILTRATION RATE . ESTIMATED GFR I S NOT APPLICABLE FOR DIALYSIS PATIEN TS. Plush Brusher ID - CHANO ESTEBAN, LUIS ENRIQUEI, WITH SMALL [id number] 16:51:00Reason for exam:->possible small bowel obstruction [facility] : 1940 Sex: MFINAL REPORT Small bowel follow through: Comparison: No priorsCl inical History: Possible small bowel obstruction After Gastrografin was given orally, multiple images were obtained over the abdomen. FINDINGS: Multiple images were obtained with contrast in the small bowel. The colon was visualized in 60 minutes. There is no evidence of obstruction. The small bowel loops are not dilated and the small bowel folds are not thickened. There was no evidence of mass effect. Fluoro time: None Number of images obtained: Eight Impression:No evidence of small bowel obstruction. Signed: Nica, Leona MDReport Verified Date/Time: 07/23/2020 16:51:01 Reading Location: [facility] C013X Ortho Consult Reading Room 04:5 1 PMFL upper gi with small bowel and [id number] 16:51:00Interface, External Ris In - 07/23/2020 5:06 PM CSTFINAL REPORT Small bowel follow through: Comparison: No priorsClinical History: Possible small bowel obstruction After Gastrografin was given orally, multiple images were obtained over the abdomen. FINDINGS: Multiple images were obtained with contrast in the small bowel. The colon was visualized in 60 minutes. There is noevidence of obstruction. The small bowel loops are not dilated and the small bowel folds are not thickened. There was no evidence of mass effect. Fluoro time: None Number of images obtained: Eight Impression:No evidence of small bowel obstruction. Signed: Leona Yousif MDReport Verified Date/Time: 07/23/2020 16:51:01 Reading Location: [facility] C013X Ortho Consult Reading Room [facility] U/S, RENAL, [id number] 09:33:00Abdomen limited area? Add comment if clarification is needed.->Renal Reason for exam:->brianda [facility] PRINCE : 1940 Sex: MFINAL REPORT TECHNIQUE: Grayscale ultrasound of the kidneys and b ladder. INDICATION: brianda. COMPARISON: CT from 07/22/2020. FINDINGS: RIGHT KIDNEY: The right kidney measures 8.9 x 4.8 x 4.1 cm with a cortical thickness of 1.6 cm. No solid mass lesions. No hydronephrosis. Renal artery and vein are patent. LEFT KIDNEY: The left kidney measures 9.3 x 4.8 x 4.5 cm with acortical thickness of 1.6 cm. No solid mass lesions. No hydronephrosis. Renal artery and vein are patent. BLADDER: The bladder volume is 78 mL. IMPRESSION: No explanation on this ultrasound for the acute kidney injury. Specifically, no hydronephrosis Signed: Giovana Montoya MDReport Verified Date/Time: 07/23/2020 09:33:55 US renal [id number] 09:33:00Interface, External Ris In - 07/23/2020 9:36 AM CSTFINAL REPORT TECHNIQUE: Grayscale ultrasound of the kidneys and bladder. INDICATION: brianda. COMPARISON: CT from 07/22/2020. FINDINGS: RIGHT KIDNEY: The right kidney measures 8.9 x 4.8 x 4.1 cm with a cortical thickness of 1.6 cm.No solid mass lesions. No hydronephrosis. Renal artery and vein are patent. LEFT KIDNEY: The left kidney measures 9.3 x 4.8 x 4.5 cm with a cortical thickness of 1.6 cm. No solid mass lesions. No hydron ephrosis. Renal artery and vein are patent. BLADDER: The bladder volume is 78 mL. IMPRESSION: No explanation on this ultrasound for the acute kidney injury. Specifically, no hydronephrosis Signed: Giovana Montoya MDReport Verified Date/Time: 07/23/2020 09:33:55 [facility] W/PLT COUNT & AUTO [id number] 07:54:00 Test Item Value Reference Range Interpretation Comments WHITE BLOOD CELL COUNT (BEAKER) 13.6 K/ L 3.5-10.5 H (test code = 775) RED BLOOD CELL COUNT (BEAKER) 3.78 M/ L 4.63-6.08 L (test code = 761) HEMOGLOBIN (BEAKER) (test code = 11.6 GM/DL 13.7-17.5 L 410) HEMATOCRIT (BEAKER) (test code = 35.8 % 40.1-51.0 L 411) MEAN CORPUSCULAR VOLUME (BEAKER) 94.7 fL 79.0-92.2 H (test code = 753) MEAN CORPUSCULAR HEMOGLOBIN 30.7 pg 25.7-32.2 (BEAKER) (test code = 751) MEAN CORPUSCULAR HEMOGLOBIN CONC 32.4 GM/DL 32.3-36.5 (BEAKER) (test code = 752) RED CELL DISTRIBUTION WIDTH 16.4 % 11.6-14.4 H (BEAKER) (test code = 412) PLATELET COUNT (BEAKER) (test 226 K/CU MM 150-450 code = 756) MEAN PLATELET VOLUME (BEAKER) 12.1 fL 9.4-12.4 (test code = 754) NUCLEATED RED BLOOD CELLS 0 /100 WBC 0-0 (BEAKER) (test code = 413) (CELLAVISION MANUAL DIFF)2020-07-23 07:54:00 Test Item Value Reference Range Interpretation Comments NEUTROPHILS - REL 73 % (CELLAVISION)(BEAKER) (test code = 2816) LYMPHOCYTES - REL 9 % (CELLAVISION)(BEAKER) (test code = 2817) MONOCYTES - REL 17 % (CELLAVISION)(BEAKER) (test code = 2818) ATYPICAL LYMPHOCYTES - REL 1 % 0-0 H (CELLAVISION)(BEAKER) (test code = 2829) NEUTROPHILS - ABS 9.93 K/ul 1.78-5.38 H (CELLAVISION)(BEAKER) (test code = 2830) LYMPHOCYTES - ABS 1.22 K/ul 1.32-3.57 L (CELLAVISION)(BEAKER) (test code = 2831) MONOCYTES - ABS 2.31 K/uL 0.30-0.82 H (CELLAVISION)(BEAKER) (test code = 2832) ATYPICAL LYMPHOCYTES - ABS 0.14 K/uL 0.00-0.00 H (CELLAVISION)(BEAKER) (test code = 2858) TOTAL COUNTED (BEAKER) (test code = 100 1351) WBC MORPHOLOGY (BEAKER) (test code Normal = 487) PLT MORPHOLOGY (BEAKER) (test code Normal = 486) POLYCHROMATOPHILLIC RBCS(BEAKER) 1+ few (test code = 478) POIKILOCYTES (BEAKER) (test code = 1+ few 966) AVIS CELLS (BEAKER) (test code = 1+ few 474) ARTIFACT (CELLAVISION)(BEAKER) Present (test code = 3432) PLATELET CONCENTRATION Adequate (CELLAVISION)(BEAKER) (test code = 3438) Plush Brusher ID - Tasneem OverholtUser comments: Slide comments:Hepatic function panel 2020-07-23 07:35:00 Test Item Value Reference Range Interpretation Comments Protein, Total (test 6.5 See_Comment [Autom ated code = 2885-2) message] The system which generated this result transmit fran reference range : 6.0 - 8.3 gm/dL . The reference range was not u sed to interpret th is result as normal/abnormal . Albumin (test code = 3.5 g/dL 3.5-5 61191-1) Total Bilirubin (test 0.5 mg/dL 0.2-1.2 code = 1975-2) Bilirubin, Direct 0.3 mg/dL 0.1-0.5 (test code = 1968-7) Alkaline Phosphatase 50 U/L 40-150 (test code = 6768-6) AST (test code = 26 U/L 5-34 1920-8) ALT (test code = <6 6-55 L 1742-6) IVORY (test code = IVORY) Plush Brusher ID - Lab Interpretation Abnormal (test code = 73339-0) [facility] CenterHEPATIC FUNCTION [id number] 07:35:00 Test Item Value Reference Range Interpretation Comments TOTAL PROTEIN (BEAKER) (test code = 6.5 gm/dL 6.0-8.3 770) ALBUMIN (BEAKER) (test code = 1145) 3.5 g/dL 3.5-5.0 BILIRUBIN TOTAL (BEAKER) (test code 0.5 mg/dL 0.2-1.2 = 377) BILIRUBIN DIRECT (BEAKER) (test 0.3 mg/dL 0.1-0.5 code = 706) ALKALINE PHOSPHATASE (BEAKER) (test 50 U/L 40-150 code = 346) AST (SGOT) (BEAKER) (test code = 26 U/L 5-34 353) ALT (SGPT) (BEAKER) (test code = < U/L 6-55 L 347) Plush Brusher [facility]Lipid [id number] 07:21:00 Test Item Value Reference Range Interpretation Comments Triglycerides (test 80 mg/dL code = 2571-8) Cholesterol (test code 109 mg/dL = 3-3) HDL (test code = 37 mg/dL 2084-9) LDL Calculated (test 56 mg/dL code = 81670-7) IVORY (test code = IVORY) Triglyceride Reference Range: Low Risk <150 Borderline 150-199 High Risk 200-499 Very High Risk >=500 Cholesterol Reference Range: Low Risk <200 Borderline 200-239 High Risk >240 HDL Cholesterol Reference Range: Low Risk >=60 High Risk <40 LDL Cholesterol Reference Range: Optimal <100 Near Optimal 100-129 Borderline 130-159 High 160-189 Very High >=190 Plush Brusher ID - SM [facility] CenterLipase2021-01-26 07:21:00 Test Item Value Reference Range Interpretation Comments Lipase (test code = 3040-3) 234 U/L 8-78 H IVORY (test code = IVORY) Plush Brusher ID [facility] Lab Interpretation (test Abnormal code = 36327-9) [facility] CenterBASIC METABOLIC [id number] 07:21:00 Test Item Value Reference Range Interpretation Comments SODIUM (BEAKER) 138 meq/L 136-145 (test code = 381) POTASSIUM (BEAKER) 3.7 meq/L 3.5-5.1 (test code = 379) CHLORIDE (BEAKER) 105 meq/L 98-107 (test code = 382) CO2 (BEAKER) (test 28 meq/L 22-29 code = 355) BLOOD UREA NITROGEN 17 mg/dL 7-21 (BEAKER) (test code = 354) CREATININE (BEAKER) 1.01 mg/dL 0.57-1.25 (test code = 358) GLUCOSE RANDOM 111 mg/dL 70-105 H (BEAKER) (test code = 652) CALCIUM (BEAKER) 8.5 mg/dL 8.4-10.2 (test code = 697) EGFR (BEAKER) (test 71 mL/min/1.73 ESTIMA FRAN GFR IS code = 1092) sq m NOT ACCURATE CREATININE CLEARANCE IN PREDICTING GLOMERULAR FILTRATION RATE . ESTIMATED GFR I S NOT APPLICABLE FOR DIALYSIS PATIEN TS. Plush Brusher ID - SMLIPID [id number] 07:21:00 Test Item Value Reference Range Interpretation Comments TRIGLYCERIDES (BEAKER) (test code = 80 mg/dL 540) CHOLESTEROL (BEAKER) (test code = 109 mg/dL 631) HDL CHOLESTEROL (BEAKER) (test code 37 mg/dL = 976) LDL CHOLESTEROL CALCULATED (BEAKER) 56 mg/dL (test code = 633) Triglyceride Reference Range: Low Risk <150 Borderline 150-199 High Risk 200-499 Very High Risk >=500Cholesterol Reference Range: Low Risk <200 Borderline 200-239 High Risk >240HDL Cholesterol Reference Range: Low Risk >=60 High Risk <40LDL Cholesterol Reference Range: Optimal <100 Near Optimal 100-129 Borderline 130-159 High 160-189 Very High >=190 Plush Brusher ID - [id number] 07:21:00 Test Item Value Reference Range Interpretation Comments LIPASE (LESLIE) (test code = 749) 234 U/L 8-78 H Plush Brusher ID - [id number] 00:00:00Ordered by an unspecified provider.[facility] CenterTissue [id number] 15:26:00 Test Item Value Reference Range Interpretation Comments Case Report (test code Surgical Pathology = 104) Report Case: [id number] Authorizing Provider: Sarahy Lopez MD Collected: 06/20/2020 04:09 PM Ordering Location: [place] [address] ICU Received: 06/24/2020 08:14 AM Pathologist: No Mueller MD Specimen: Biopsy, Gastric, Gastric Bx DIAGNOSIS (test code = [id number] 3220) FuZzEwMzNcZnRuYmpcdWMx IHtccnRmMVxlcGljOTIwMF xuyqPnBCBblBRpO2Xklitj DGfiDO8mLK1kbHxnzDTvfX EbOIOjQjEiy5uml456gNRt x8xkSXRHiqmqmPm0wNvaB4 3jw7M1HfgqN5acTBNkIAbx fgEpobO3GEGgwGHtFKt9WK XhgzYgoSmokF5vQoKgYKcr TJKmuBKnUQWLUfPQHN9JCY CSCVBRTN4XI7c9QZRyukBr YYNiXICJDFBSGprZCH9YMR 7KOUMxQGFSD1OHUSwKFBpd XGNmMSBOTyBTSUdOSUZJQ0 KFDOHKFGXKHg9XYXpHLKZS GTVGCNJQT60kDPCfksjbMy DjTJAuYE7dVmNQTZRXXgYh Ui8WJDiMHRpHA0ZKT7BFYz RUMSiAXkomN3ZNZE1LL48X XKOGDNzBFbPWIZ3vF7XMEk JZIFNUQUlOLlxwYXIgICAg XI6vHiPRSWHALtVtNs9XPW lOVEVTVElOQUwgTUVUQVBM DKLHSTqfNHwRJMqYF7hLLO 8WXK0KGAzUGhXBM1sfHLOm db67GMI9QjXwr7N7RMR9SV LkUMNsc9qiNCVfuOBfXcFw MzNcZnRuYmpcdWMxXGRlZm Dzj5fcl843qXZpu8wgIYIw AnR6eCUhUSYhfWMtI652DK YbFQoew1pip3ZzMXZggBAn s9G4DYETdudbfPf7kOvaK0 9sw0B7YlfzD4ghTTXuJUOx X9HjFS1zJGOtMsv2BMM8AC D5FNQvPYBhG7CdYI4eWVJv gROhUOl4z5oggMwwLHTeLL S7c1stFOmureWzTX7lxv1i nPh9r6ecebVbMTNgGBJwoC JFZLIxR1AtnIreUn5soYx0 tJxxPzncFXQ1Bic7XK8xlm 64hyc1fNfzNOBwbnttBpT7 HFrxADJrvenlHSx2UTtzIJ CliHA7OIQwaKAbS8JgBXLc JB1usrr0UII3ARmqLLLjPo E5PFUciNCmODGtzOlhLAej l414ITU2SzTlDS3sP8Jbg3 I6gT1jkTMqTBXtxPApFeVo WSMzxn1sfQQfQZvwc3LrDN P3mpM0sUTdyEVqBSRyJpZ0 JMicZC1cbu33PSVfDXS6qt 5ybGNccGdicmRyaGVhZFxw D2VpLDIvz407ZUCcC8QqFJ Dda6A9stCdUmHnRAUtqLK5 pqG6FEFqSO3vsvusj4thVY pqNItuXIFzgiL3nnO1VSPn yHAdH3MelH0nUBRrLH0edk rux5xdAVB3VQlbEWZsIIJ2 KaYvNSAey2Fkqtg7XiYro7 CimVWwAEghW33gx169FYGw hoGbQ4jmfRGmyvswqBCxmo miIDgbjpQ6IMXdZHkbysbp IRRhNBtuW2zqObMbDEZvrZ zoSPxnn8BhJEQeNMEbLcQl eGUsSHSeDkk6TOKowVHvYJ SyYiIoR9nruheaVmKHEEAt e8zfI9enfOYWeEFkP3NfYR hvbmUgTGluZTogODMyLTM1 KG5kWyG9HJDqho43 CPT Code(s) (test code u3bfbIZvVKQgeML4EzWeCZ = 3357) Fmj7ayz2XfyHEniMIjPBua wTOcufEfsu50pTX4tQ38QO 3uIBTwAbF1ZSPtleY4Uxx2 HRKiYDGeiDOfV580o8yzk1 bwykDzmON9iDffTWDiQPDd YWluXGZzMjAgODgzMDUsID t4FgLlANGvhw1= CLINICAL HISTORY (test p2gfdDQzWPVqjAO8GpBlZA code = 3356) Jir5lqz1KreCEgtAWqUCuw cMDyxrPfsq48oVQ2vO81UH 4tZMYaBdL8PDPozsL9Uyj7 DGYiIYTmbXWwI232a3hdr0 xdvmIicZW1zMspCWNvDUGq KDjiHBQvDpSuU0fzLdghTE RccGFyfQ== SPECIMEN SOURCE (test w0bfvWCxYSVboCG4LuBzTD code = 3377) Dag9lxq8CmmCFirERoOWlt mAXcirHucn27wQN8jQ98RE 9aBFZqCvB5NWZmfbE3Lqv6 QBUaQHUodXJkA113p5iyf7 stvzGfqPL9rWngZFSwIJHk PBgzMQNwInLrF4WivLUvEj GlaK3sq7zezYJdgL== GROSS DESCRIPTION (test n0uonLPgZJCbwWNkEvJpSC code = 3366) DdOPSlf2gxGKRbdNCcSxXt MzNcZnRuYmpcdWMxXGRlZm Ozx0yje288lEOfr4djVUMc VyZ8fXLzMQXfrDJdP116w5 rkz9jedjVfrMP4YZCgYLS9 BKmmlbKggoB1EQmvxLLsXt Z6BMlfgkBwGBlbhlKiupLs Wyk8VCQbP747WKA3oNzjn8 aoZIX8QSNsZFDxLuLtFv1i nPArV100UZEmBFMPMNJzrC x8UIKuivIjirYmvRJTo822 T667n9xbFPVgntDfiUbSga fgl1fdK241DLWbuVWamoBo QkVaBFQgsOZecZM5CGFbMG 3ssrbrJnSsOP0omnzlSeMs LL4bixs2UaFqSM7pympiJq RxMJnrMYDkkpztDTHxn5Al slonMN5wU5Wwa7C2wC7gfV AbVQObmXVsJzTeUZJhcw8g pZZyHNibd1SrIKN5zyF4xY CleVHiPTNlZM40Raehj2Pj GynxAWH8ALXipiZpf4Sni0 xvIqGjmsNtZ9mnR1WhQQUc JQAbRPPhTxAshrXfi2Lmt0 FwiLCnyIj1a7xlSFMpBEHd yPxtd3vzBYZ7DOJbL8B2wG Mpv1mkLFloPXVroNE0hvcz EDrqLWNbsjY1dfwcLWkuXQ ZjhUC3pfepARtuSTGhIcU0 warkLMtqRDHvUPC2KNdsf7 44HTI2PIslBhlrSZlsNAPw bmNvbnRccGduZGVjXHBsYW luXHBsYWluXGYwXGZzMjRc iLkbvWpmeN8tYfTmYnVqRK ftGS9aGKCtQ7xhzOYxCFIu YSQzE8oyOrFepW4rcVqfRS bbusXzCQYrQ5CqcvGuNIas SBHsex9dbUmrRAmjDuFrYX QgdGhlIHBhdGllbnQncyBu WB0eGAOwO2Teo6Tss12nkk MvLcHoPYObHVXvJ3BcwLAd VfFdmS3wa9isMGEpXBEpPT Rlfv6htA3zQDQgm4S7IKRr ubOlcFWelQUurDYjf6LpdV 5nIHVwIHRvIDAuNCBjbSBp poJpqpYmnVJrwIDprT9udk Jnh45jq3egH1oeGTJsIADg bHRlcmVkIGFuZCBzdWJtaX I3AQVskT3qaK20xkVjiiGA ID2keFBfFNAqzeCHcEdycp YMefi6PXegQAJaBPYXTDSR VCAoQVNDUClccGFyfQ== MICROSCOPIC DESCRIPTION y8yewXNsICAwiVX9RoXzBC (test code = 3371) Rjo8guo8MhkTVgwCVuMGxn vMEthtMfrb29hXI5pG43DK 3bQFBcPcU3KCHnnzN1Qpi9 XBHdYBIwdKXlI969y5nay0 xsdoHjzAG2sOxlNPUrDTCx KWucONGxRpVoNAYwQn2jiE VkLlxwYXJ9 SPECIAL STUDIES (test c3hlnDYkBDOqaBJ5WlYrSW code = 3376) Bmx6ncb9BkyCDzxGGkHQgx vNJrwjBtko53uWI7fU97ZM 7lMRFzBlP9SBXxzeS1Tzl6 FHSnOPUawCOwS786ANLdIQ GgpByjemi5nF99RHFolV7z uXIoTYx4RDEttrXisWmhcX 4vPiBhOyLrGuJQtTNcqE05 WKQeycL1RIKil52uo5LbcB pvyiHdXTSuPRbpL7n4LKIn QBXvRIN6q8Vje4LiyD4kaN 3ziXbluQ2riGEpzFY3amno o6Plb0DhK3rvbLBenIKmux ArUGYinaWQPRU2mRnxSIA3 KTGqzTfpODCqG06odEThsX BTbGlkZXMgRXhhbWluZWQ6 LXZSvt1qz3GoISFhwu93kl Rgi9BwmVy4LXNyj443ms4m olO7LRDjIEQ3CVk0PGBmCS HskN0qAbV1xFYsJNXzZUB9 PLR5RFOhd7X3IT9vUZKdOJ TbIBMkyxNbr3kzi8ugNLBg HBW4xnJjoB3iC8FaHQVvf4 YgdGhlIHBhdGllbnRzIHNh jFPnVDRhpS54JUPglUHcvI OxSSLaZQR5DXggxT5vOjQC pmWaky7amDXoz0MtdKr8RS CyxiZltdMnPZTpusXqX53d nUScrRBtb5mtzwJgxeCjzX MzmNVkELZxDCG2DLf0WWIt RXztBLFfSOzeNQMiPB5ioR 2dqNzxdX1hgSKngVD9ukbm cIXqjU4vP2CkCIRrl6Tlnd bwf8GhAZJsumQplb4aWPUa iYXUBIbgj3RjQ7YpDFa6c7 DbeGmqNVccLFm9VwAaYUOz wUQhqJOJLG07DFLaWFQimN kbsA5prDQYHLTcalU7c7G9 QLinHDVtUMq4RDkcnuQrNJ JmyF2mOVWbRD1nBIi8tkXo NPWlc6YnKA0oDGOzsFAgLZ S9SIZjc1TkP0Vsu7SlLOGd SJDlyl9lkkEmHxEVyQPwUN Xcgj52SPBsGF3cZ1tfSAXo QKUbizJnkJRtt2IiHGTgtD P3kFIiSI4ANyCGw60dPKWw LZOVeiWhTQJsuDaaoDY4zr J4wK8bOcJBbVEkNtEIEMas tfVgUQPnqp8yhpMqAQBiKQ Cna7NayVKngXYmmsKyH3Sh j5UvDFJkij44YVvrhNEszr 76EV7oD9Unk4LnvF0hBIex GSSml6JaxNUlqQQuASEkc3 GeD5hvxddsZSeczXSxwI8a OCFnVGi5MYJiu7BtTSYqm7 QgYmUgcmVnYXJkZWQgYXMg rI13LSB7eSvacMgmucDpEU 8vVAGhjdViGOCfTUAzsK8y HCemjgKgKBAoedC7w6P2JS itRFYysrXxUkkzMOS8eiUm noU0cYMgY1cbwkqrPDuuJH Atn5SswX9llFIKgWFws1At iQCunSLVvEVpAB3sfbMsOR 5aQCW2HTkxLSJUGBHhSTly XPWgCAO6UCqgDxkqLWS1mi JvCGQhs3WhDYouP2jxP53q rSlecCm4dIUbpQfvaWOxpE BzSZZfbwI2i6I6GMYhm8Xa bmcuXHBhcn0= Gross assessment was [facility] performed at ([facility], = 2777) Department of Pathology, [address] [place] [address], Technical component was [facility] performed at ([facility], = 2778) Department of Pathology, [address] [place] [address], Professional component [facility] was performed at ([facility], code = 2779) Department of Pathology, [address] [place] [address], [facility] CenterTISSUE [id number] 15:26:00Surgical Pathology Report Case: [id number] Authorizing Provider: Sarahy Lopez MD Collected: 06/20/2020 04:09 PM Ordering Location: [place] [address] ICU Received: 06/24/2020 08:14 AM Pathologist: No Mueller MD Specimen: Biopsy, Gastric, Gastric Bx A. STOMACH, BIOPSY: - GASTRIC OXYNTIC MUCOSA WITH NO SIGNIFICANT DIAGNOSTIC ALTERATION. - NEGATIVE FOR HELICOBACTER PYLORI ORGANISMS BY WARTHIN STARRY STAIN. - NEGATIVE FOR INTESTINAL METAPLASIA, DYSPLASIA OR MALIGNANCY. Signing Pathologist Direct Phone Line: [phone] signed by No Mueller MD on 06/24/2020 at 3:26 [id number], [id number] BleedGastric biopsyReceived in formalin labeled the patient's name, accession number and "gastric biopsy" are 2 navarro-pink tissue fragments measuring up to0.4 cm in greatest dimension which are filtered and submitted in toto in A1.MARILUZ Varghese, HT (ASCP)Performed.The interpretation of this case included the use of immunohistochemistry or special stains.Raheem starAnaol Slides Examined: In-house known positive controls were evaluated along with the test tissue. These control slides run alongside of the patients sample show appropriate staining. Internal positive and negative controls when available are evaluated Immunohistochemistry technical testing was performed at [facility], Pathology Laboratory where it was developed [...] qualified to perform high complexity clinical laboratory testing.[facility], Department of Pathology, [address] [place] [address], [facility], Department of Pathology, [address] [place] [address], [facility], Department of [facility]ology, [address] [place] [address], QYD W/PLT COUNT & AUTO [id number] 08:50:00 Test Item Value Reference Range Interpretation [...] CONCENTRATION Adequate (CELLAVISION)(BEAKER) (test code = 3438) Plush Brusher ID - Isis Adamsmarkie comments: Slide comments:BASIC METABOLIC PANEL 2020-06-24 06:47:00 Test Item Value Reference Range [...] 697) EGFR (BEAKER) (test 79 mL/min/1.73 ESTIMA FRAN GFR IS code = 1092) sq m NOT ACCURATE CREATININE CLEARANCE IN PREDICTING GLOMERULAR FILTRATION RATE . ESTIMATED GFR I S NOT APPLICABLE FOR DIALYSIS PATIEN TS. Plush Brusher ID - EDWAGNERPOC-Glucose [id number] 06:07:00 Test Item Value Reference Range Interpretation Comments POC-Glucose Meter (test 101 mg/dL 70-110 : TE STED AT [facility] code = 1538) [address] [facility], 770 30: Plush Brusher/Techni nat ID = [id number] for ULLATTIL, JUD K Lab Interpretation (test Normal code = 54854-7) [facility] CenterPOCT-GLUCOSE [id number] 06:07:00 Test Item Value Reference Range Interpretation Comments POC-GLUCOSE METER 101 mg/dL 70-110 : TESTED A T [facility] 6720 (BEAKER) (test code = DAJUAN Davis [facility], 1538) [address]: Plush Brusher/Techni nat ID = [id number] for UL LATTIL, RIMA POCT-GLUCOSE [id number] 20:39:00 Test Item Value Reference Range Interpretation Comments POC-GLUCOSE METER 97 mg/dL 70-110 : TESTED A T [facility] 6720 (BEAKER) (test code = [facility], 153) [address]: Plush Brusher/Techni nat ID = [id number] for LILIANA TTIL, RIMA POCT-GLUCOSE [id number] 17:29:00 Test Item Value Reference Range Interpretation Comments POC-GLUCOSE METER 100 mg/dL 70-110 : TESTED A T [facility] 6720 (BEAKER) (test code = [facility], 1538) 517[address]: Plush Brusher/Techni nat ID = [id number] for FA ITH JOANA POCT-GLUCOSE [id number] 12:17:00 Test Item Value Reference Range Interpretation Comments POC-GLUCOSE METER 95 mg/dL 70-110 : TESTED A T [facility] 6720 (BEAKER) (test code = [facility], 153) 68661: Plush Brusher/Techni nat ID = [id number] for FAIT H, JOANA CBC W/PLT COUNT & AUTO [id number] 11:41:00 Test Item Value Reference Range Interpretation [...] CONCENTRATION Adequate (CELLAVISION)(BEAKER) (test code = 3438) Plush Brusher ID - Isis Austin comments: Slide comments:POCT-GLUCOSE METER 2020-06-23 08:02:00 Test Item Value Reference Range Interpretation Comments POC-GLUCOSE METER 105 mg/dL 70-110 : TESTED A T [facility] 6720 (BEAKER) (test code = [facility], 153) [address]: Plush Brusher/Techni nat ID = [id number] for JOANA PEREYRA BASIC METABOLIC [id number] 07:04:00 Test Item Value Reference Range Interpretation [...] 697) EGFR (BEAKER) (test 77 mL/min/1.73 ESTIMA FRAN GFR IS code = 1092) sq m NOT ACCURATE CREATININE CLEARANCE IN PREDICTING GLOMERULAR FILTRATION RATE . ESTIMATED GFR I S NOT APPLICABLE FOR DIALYSIS PATIEN TS. Plush Brusher ID - EDASIPOCT-GLUCOSE [id number] 21:34:00 Test Item Value Reference Range Interpretation Comments POC-GLUCOSE METER 112 mg/dL 70-110 H : TESTED A T [facility] 6720 (BEAKER) (test code = [facility], 153) 22730: Plush Brusher/Techni nat ID = [id number] for CA RBAJAL, DESTINEE POCT-GLUCOSE [id number] 18:08:00 Test Item Value Reference Range Interpretation Comments POC-GLUCOSE METER 104 mg/dL 70-110 : TESTED A T [facility] 6720 (BEAKER) (test code = [facility], 153) 434[address]: Plush Brusher/Techni nat ID = [id number] for Thompson Cortney POCT-GLUCOSE [id number] 12:55:00 Test Item Value Reference Range Interpretation Comments POC-GLUCOSE METER 89 mg/dL 70-110 : TESTED A T [facility] 6720 (BEAKER) (test code = [place]JUAN [place], 1538) [address]: Plush Brusher/Techni nat ID = [id number] for INDER HERNÁNDEZ CBC W/PLT COUNT & AUTO [id number] 11:14:00 Test Item Value Reference Range Interpretation [...] CONCENTRATION Adequate (CELLAVISION)(BEAKER) (test code = 3438) Plush Brusher ID - Isis Austin comments: Slide comments:POCT-GLUCOSE METER 2020-06-22 06:31:00 Test Item Value Reference Range Interpretation Comments POC-GLUCOSE METER 99 mg/dL 70-110 : TESTED A T [facility] 6720 (BEAKER) (test code = [place], 1538) 278[address]: Plush Brusher/Techni nat ID = [id number] for LILIANA JOHANSEN, RIMA BASIC METABOLIC [id number] 06:28:00 Test Item Value Reference Range Interpretation [...] 697) EGFR (BEAKER) (test 81 mL/min/1.73 ESTIMA FRAN GFR IS code = 1092) sq m NOT ACCURATE CREATININE CLEARANCE IN PREDICTING GLOMERULAR FILTRATION RATE . ESTIMATED GFR I S NOT APPLICABLE FOR DIALYSIS PATIEN TS. Plush Brusher ID - EDASIPOCT-GLUCOSE [id number] 23:55:00 Test Item Value Reference Range Interpretation Comments POC-GLUCOSE METER 94 mg/dL 70-110 : TESTED A T [facility] 6720 ([place]) (test code = DAJUAN [place], 1538) 65054: Plush Brusher/Techni nat ID = [id number] for LILIANA JOHANSEN, RIMA [id number] 14:06:00 Test Item Value Reference Range Interpretation Comments Magnesium (test code = 1.9 mg/dL 1.6-2.6 44811-4) IVORY (test code = IVORY) Plush Brusher ID - AAHAMID Lab Interpretation (test Normal code = 35049-6) [facility] CenterPhosphorus2020-12-25 14:06:00 Test Item Value Reference Range Interpretation Comments Phosphorus (test code = 2.3 mg/dL 2.3-4.7 2777-1) IVORY (test code = IVORY) Plush Brusher ID - AAHAMID Lab Interpretation (test Normal code = 05436-6) [facility] CenterMAGNESIUM2020-12-25 14:06:00 Test Item Value Reference Range Interpretation Comments MAGNESIUM (BEAKER) (test code = 1.9 mg/dL 1.6-2.6 627) Plush Brusher ID - [id number] 14:06:00 Test Item Value Reference Range Interpretation Comments PHOSPHORUS (BEAKER) (test code = 2.3 mg/dL 2.3-4.7 604) Plush Brusher ID - AAHAMIDPOCT-GLUCOSE [id number] 11:19:00 Test Item Value Reference Range Interpretation Comments POC-GLUCOSE METER 138 mg/dL 70-110 H : TESTED A T [facility] 6720 (BEAKER) (test code = DAJUAN Davis [facility], 1538) 12[address]: Plush Brusher/Techni nat ID = [id number] for ROSY SOLORZANO CBC W/PLT COUNT & AUTO [id number] 07:57:00 Test Item Value Reference Range Interpretation [...] CONCENTRATION Adequate (CELLAVISION)(BEAKER) (test code = 3438) Plush Brusher ID - Tasneem OverholtUser comments: Slide comments:BASIC [...] 697) EGFR (BEAKER) (test 79 mL/min/1.73 ESTIMA FRAN GFR IS code = 1092) sq m NOT ACCURATE CREATININE CLEARANCE IN PREDICTING GLOMERULAR FILTRATION RATE . ESTIMATED GFR I S NOT APPLICABLE FOR DIALYSIS PATIEN TS. Plush Brusher ID - PIAYA LPOCT-GLUCOSE [id number] 07:12:00 Test Item Value Reference Range Interpretation Comments POC-GLUCOSE METER 82 mg/dL 70-110 : TESTED A T [facility] 6720 (LESLIE) (test [facility] = [facility], 1538) 823[address]: Plush Brusher/Techni nat ID = [id number] for SUGU , SHEENAMOL POCT-GLUCOSE [id number] 00:07:00 Test Item Value Reference Range Interpretation Comments POC-GLUCOSE METER 111 mg/dL 70-110 H : TESTED A T [facility] 6720 (LESLIE) (test code [facility], = 1538) 21367: Plush Brusher/Techni nat ID = [id number] for SUGU , SHEENAMOL CBC (Hemogram only)2020-06-20 23:01:00 Test Item Value Reference Range Interpretation Comments WBC (test code = 6690-2) 16.0 See_Comment H [A utomated message] The system [employer] generated this result transmitted ref erence range: 3.5 - 10 .5 K/L. The refe rence range was not u sed to interpret this result as normal/abnor mal. RBC (test code = 789-8) 2.75 See_Comment L [Au tomated message] The system [employer] generated this result transmitted ref erence range: 4.63 - 6 .08 M/L. The refe rence range was not u sed to interpret this result as normal/abnor mal. MCHC (test code = 786-4) 34.2 See_Comment L [A utomated message] The system [employer] generated this result transmitted ref erence range: 32.3 - 3 6.5 GM/DL. The refe rence range was not u sed to interpret this result as normal/abnor mal. Hematocrit (test code = 24.3 % 40.1-51 L 4544-3) MCV (test code = 787-2) 88.4 fL 79-92.2 MCH (test code = 785-6) 30.2 pg 25.7-32.2 RDW (test code = 788-0) 17.7 % 11.6-14.4 H Platelets (test code = 194 See_Comment [Aut omated message] 777-3) The system [employer] generated this result transmitted ref erence range: 150 - 45 0 K/CU MM. The referen ce range was not u sed to interpret this result as normal/abnor mal. MPV (test code = 10.4 fL 9.4-12.4 45992-1) nRBC (test code = 413) 0 See_Comment [Aut omated message] The system [employer] generated this result transmitted ref erence range: 0 - 0 /1 00 WBC. The refere nce range was not u sed to interpret this result as normal/abnor mal. Lab Interpretation (test Abnormal code = 92275-3) [facility] (HEMOGRAM ONLY)2020-06-20 23:01:00 Test Item Value Reference [...] 0-0 (BEAKER) (test code = 413) POCT-GLUCOSE [id number] 18:06:00 Test Item Value Reference Range Interpretation Comments POC-GLUCOSE METER 79 mg/dL 70-110 : TESTED A T [facility] 6720 (LESLIE) (test code = [place]JUAN [place]HAN [place], 1538) 80271: Plush Brusher/Techni nat ID = [id number] for ROSY ORDONEZ SARS-CoV2/RT-PCR (Asymptomatic ONLY)2020-06-20 17:06:00 Test Item Value Reference Range Interpretation Comments SARS-COV2/RT-PCR Negative Not Detected, (test code = Negative, See 73224-7) external report for linked test SARS-COV-2 [facility] PERFORMING LAB (test code = 82695-4) IVORY (test code = Negative result for [...] of the Act. Fact Sheet for Healthcare Providers:https://www.[employer]/sites/default/f anabell/product/documents/F act_Sheet_HC_Providers_L blz_VNIV-LsH-4.pdf Fact Sheet for Healthcare Patients:https://www.[employer]/sites/default/fi les/product/documents/Fa ct_Sheet_Patients_Lyra_S ARS-CoV-2.pdf Performing Laboratory:[facility] [place] [address] [facility])2020-06-20 17:06:00 Test Item Value Reference Range Interpretation Comments SARS-COV2/RT-PCR (test Negative Not Detected, Negative, code = 2033295) See external report for linked test SARS-COV-2 PERFORMING LAB [facility] (test code = 5543908) Negative result for this test determines that [...] 564(g) of the Act.Fact Sheet for Healthcare Providers:https://www.[employer]/sites/default/files/product/documents/Fact_Shee o_BJ_Diybxllza_Jzpr_TZQL-DgX-6.pdfFact Sheet for Healthcare Patients:https://www.[employer]/sites/default/files/product/ documents/Qgmo_Icphz_Safuewet_Rjwn_YNYF-UzA-6.pdfPerforming Laboratory:[facility] [facility].[place], [place] [address]Qxzwtlohrj and [id number] 16:27:00 Test Item Value Reference Range Interpretation Comments Hemoglobin (test code 8.8 See_Comment L [Auto mated = 786-4) message] The system which generated this result transmit fran reference range : 13.7 - 17.5 GM/ DL. The reference range was not u sed to interpret th is result as normal/abnormal . Hematocrit (test code 24.9 % 40.1-51 L = 4544-3) IVORY (test code = IVORY) Plush Brusher ID - [id number] Lab Interpretation Abnormal (test code = 08633-4) [facility] [id number] 16:27:00 Test Item Value Reference Range Interpretation Comments HEMOGLOBIN (BEAKER) (test code = 8.8 GM/DL 13.7-17.5 L 410) HEMATOCRIT (BEAKER) (test code = 24.9 % 40.1-51.0 L 411) Plush Brusher ID - [id number] 16:24:00 Test Item Value Reference Range Interpretation Comments Ferritin (test code = 99.40 ng/mL 5-275 2276-4) IVORY (test code = IVORY) Plush Brusher ID - LAURA F Lab Interpretation (test Normal code = 71872-5) [facility]2020-[facility] 16:24:00 Test Item Value Reference Range Interpretation Comments FERRITIN (BEAKER) (test code = 99.40 ng/mL 5.00-275.00 361) Plush Brusher ID - LAURA Mendez, TIBC, % sat. (without ferritin)2020-06-20 16:03:00 Test Item Value Reference Range Interpretation Comments Iron (test code = 2498-4) 107.0 ug/dL 40-160 TIBC (test code = 2500-7) 173 ug/dL 250-450 L Iron % Saturation (test 62 % 20-55 H code = 2502-3) IVORY (test code = IVORY) Plush Brusher ID Med CLEMENTS F Lab Interpretation (test Abnormal code = 72271-1) [facility], [facility]BC, % SAT. (WITHOUT FERRITIN)2020-06-20 16:03:00 Test Item Value Reference Range Interpretation Comments IRON (BEAKER) (test code = 547) 107.0 ug/dL 40.0-160.0 TOTAL IRON BINDING CAPACITY 173 ug/dL 250-450 L (BEAKER) (test code = 769) IRON % SATURATION (2) (BEAKER) 62 % 20-55 H (test code = 2590) Plush Brusher KEVIN CLEMENTS FABORH, [id number] 12:32:00 Test Item Value Reference Range Interpretation Comments ABO Grouping (test code = 2588) A Rh Factor (test code = 2589) NEG [facility] Center[facility]ibr[facility]ogen2020-12-24 12:22:00 Test Item Value Reference Range Interpretation Comments Fibrinogen (test code = 3255-7) 376 mg/dl 225-434 Lab Interpretation (test code = Normal 43621-8) [facility] CenterProthrombin time/[id number] 12:22:00 Test Item Value Reference Interpretation Comments Range Protime (test code = 18.5 See_Comment H [Autom ated 5902-2) message] The system which generated this result transmitted reference range : 11.9 - 14.2 seconds. The reference range was not used to interpret this result as normal/abnormal . INR (test code = 1.59 See_Comment [Automated 6301-6) message] The system which generated this result transmitted reference range : <=5.90. The reference range was not used to interpret this result as normal/abnormal . IVORY (test code = Effective 11/23/2018: IVORY) PT Reference Range ChangeNew: 11.9-14.2 Previous: 11.7-14.7 RECOMMENDED COUMADIN/WARFARIN INR THERAPY RANGESSTANDARD DOSE: 2.0-3.0 Includes: PROPHYLAXIS for venous thrombosis, systemic embolization; TREATMENT for venous thrombosis and/or pulmonary embolus.HIGH RISK: Target INR is 2.5-3.5 for patients wiht mechanical heart valves. Lab Interpretation Abnormal (test code = 34052-3) [facility] CenteraPTT2020-12-[facility] 12:22:00 Test Item Value Reference Range Interpretation Comments PTT (test code = 87755-1) 32.4 See_Comment [ Automated message] The system [employer] generated this result transmitted ref erence range: 22.5 - 3 6.0 seconds. The re ference range was not u sed to interpret this result as normal/abnor mal. Lab Interpretation (test Normal code = 87900-4) [facility] CenterFIBRINOGEN2020-12-24 12:22:00 Test Item Value Reference Range Interpretation Comments FIBRINOGEN LEVEL (BEAKER) (test 376 mg/dl 225-434 code = 658) PROTHROMBIN TIME/[id number] 12:22:00 Test Item Value Reference Range Interpretation [...] INR is2.5-3.5 for patients wiht mechanical heart valves.[id number] 12:22:00 Test Item Value Reference Range Interpretation Comments PARTIAL THROMBOPLASTIN TIME 32.4 seconds 22.5-36.0 (BEAKER) (test code = 760) Type and screen, [id number] 12:12:00 Test Item Value Reference Range Interpretation Comments ABO/RH AUTOMATED (BEAKER) (test A NEGATIVE code = 2260) Ab Scrn (test code = 890-4) NEGATIVE [facility] CenterComprehensive metabolic [id number] 12:01:00 Test Item Value Reference Range Interpretation Comments Protein, Total (test 5.3 See_Comment L [Autom ated code = 2885-2) message] The system which generated this result transmit fran reference range : 6.0 - 8.3 gm/dL . The reference range was not u sed to interpret th is result as normal/abnormal . Albumin (test code = 2.9 g/dL 3.5-5 L 46643-4) Alkaline Phosphatase 35 U/L 40-150 L (test code = 6768-6) Total Bilirubin (test 0.5 mg/dL 0.2-1.2 code = 1975-2) Sodium (test code = 133 meq/L 136-145 L 2951-2) Potassium (test code 3.4 meq/L 3.5-5.1 L = 2823-3) Chloride (test code = 106 meq/L 98-107 2075-0) CO2 (test code = 19 meq/L 22-29 L 2028-9) BUN (test code = 54 mg/dL 7-21 H 3094-0) Creatinine (test code 1.06 mg/dL 0.57-1.25 = 2160-0) Glucose (test code = 110 mg/dL 70-105 H 2345-7) Calcium (test code = 7.9 mg/dL 8.4-10.2 L 23766-6) AST (test code = 31 U/L 5-34 1920-8) ALT (test code = 6 U/L 6-55 1742-6) EGFR (test code = 67 mL/min/1.73 [place] [address]-7) NOT ACCURATE CREATININE CLEARANCE IN PREDICTING GLOMERULAR FILTRATION RATE . ESTIMATED GFR I S NOT APPLICABLE FOR DIALYSIS PATIEN TSYamil IVORY (test code = IVORY) Plush Brusher ID - LAURA Mccray Lab Interpretation Abnormal (test code = 69571-9) [facility] CenterCOMPREHENSIVE METABOLIC [id number] 12:01:00 Test Item Value Reference Range Interpretation [...] 347) EGFR (BEAKER) (test 67 mL/min/1.73 ESTIMA FRAN GFR IS code = 1092) sq m NOT ACCURATE CREATININE CLEARANCE IN PREDICTING GLOMERULAR FILTRATION RATE . ESTIMATED GFR I S NOT APPLICABLE FOR DIALYSIS PATIEN TS. Plush Brusher ID Med CLEMENTS [id number] 11:59:00 Test Item Value Reference Range Interpretation Comments MAGNESIUM (BEAKER) (test code = 1.8 mg/dL 1.6-2.6 627) Plush Brusher ID Med CLEMENTS [id number] 11:59:00 Test Item Value Reference Range Interpretation Comments PHOSPHORUS (BEAKER) (test code = 1.8 mg/dL 2.3-4.7 L 604) Plush Brusher ID Med [facility] FHEMOGLOBIN AND [id number] 11:39:00 Test Item Value Reference Range Interpretation Comments HEMOGLOBIN (BEAKER) (test code = 9.4 GM/DL 13.7-17.5 L 410) HEMATOCRIT (BEAKER) (test code = 26.6 % 40.1-51.0 L 411) Plush Brusher ID - Huang
[2020-12-17 15:19] LABS: Urine Blood Negative (Negative); Urine Glucose Negative (Negative); Urine Protein 2+ (Negative); Urine Specific Gravity 1.025 (1.005-1.030); Urine pH 6.5 (5.0-7.0)
[2020-12-17] MEDS ORDERED: ONDANSETRON 4 MG/2 ML VIAL ONE (15:29)
[2020-12-17] MEDS ORDERED: MORPHINE 4 MG/ML SYR ONE (15:29)
[2020-12-17 15:37] LABS: Absolute Lymphocytes (CBC) 1.5 K/uL (0.7-4.9); Basophils % 0.6 % (0-1.3); Hematocrit 39.8 % (39.6-49.0); Lymphocytes % 10.8 % (15.3-44.8); MPV 9.5 fL (7.6-11.3); RBC Red Blood Cell Count 4.38 M/uL (4.33-5.43)
--- NOTE | 2020-12-17 16:08 | RAD REPORT ---
EXAM DESCRIPTION: CT - Abdomen Pelvis W Contrast - 12/17/2020 3:41 pm CLINICAL HISTORY: ABD PAIN COMPARISON: Abdomen Pelvis W Contrast dated 06/13/2020 TECHNIQUE: Biphasic, helical CT imaging of the abdomen and pelvis was performed following 100 ml non -ionic IV contrast. No oral contrast administered. All CT scans are performed using dose optimization technique as appropriate and may include automated exposure control or mA/KV adjustment according to patient size. FINDINGS: No acute lung parenchymal findings. Heart size is upper normal. No pericardial effusion. The liver, gallbladder, and biliary tree show no acute findings. Spleen is absent. Numerous surgical clips are seen in the left upper quadrant. There is left hemidiaphragm elevation. Patient has a very large hiatal hernia is accentuated by the left hemidiaphragm elevation. The hernia contains the body and tail of the pancreas as well as multiple small bowel loops. Size and number of bowel loops involv ed has not clearly changed from the May 2020 comparison. Symmetric renal function is seen with no hydronephrosis or suspicious renal mass. No pyelonephritis o r acute parenchymal process. No bladder abnormalities. No adrenal abnormalities. Prostate gland and s eminal vesicles are not outside of normal range. Stomach is fluid-filled with distended but nondilated volume. No gastric wall thickening, mass or anibal ma seen. Duodenal C-loop is unremarkable. Hernia contains several loops of proximal and mid jejunum. Within the peritoneal cavity there are multiple distended dilated loops of jejunum. There is distenti on and mild dilatation of some of the small bowel loops within the hernia. There is relative narrowin g of the hernia neck. Some of the small bowel loops are dilated due to the affects of hernia causing partial or intermittent bowel obstruction. There additional dilated loops downstream from the hernia without a clearly defined transition point or mass. Internal hernia or adhesion would be suspected. D istal ileum is decompressed. No colon dilatation. Colon is mostly decompressed which limits assessmen t of possible mass. Patient has prominent sigmoid diverticulosis. No free air, free fluid or pneumatosis. Fat filled right inguinal hernia is present. No mass or bulk y lymphadenopathy. No suspicious bony findings. Degenerative changes are present. IMPRESSION: No free air or emergent surgical holding. Patient shows small bowel obstruction pattern partly due to any long-standing large hiatal hernia yaakov t contains several loops of small bowel as well as the pancreas. Additional dilated small bowel loops are downstream from the herniated loops and therefore may be due to adhesion or internal hernia. A specific mass or transition point is not clearly defined.
[2020-12-17 16:13] LABS: Albumin 3.8 g/dL (3.4-5.0); Bilirubin Direct 0.2 mg/dL (0-0.2); Bilirubin Total 0.8 mg/dL (0.2-1.0); Potassium 3.8 mmol/L (3.5-5.1); Protein, Total 8.1 g/dL (6.4-8.2)
[2020-12-17] MEDS ORDERED: LIDOCAINE VISCOUS 2% SOLN 15 ML UDC ONE (18:23)
--- NOTE | 2020-12-17 19:10 | EDPHYS ---
Physician Documentation [facility] Name: Brennen Patel Age: 80 yrs Sex: Male : 1940 Arrival Date: 12/17/2020 Time: 14:38 Bed 16 Private MD: ED Physician Hang Salcedo HPI: 12/17 15:08 This 80 yrs old Male presents to ER via Ambulatory with complaints of Abd kb Pain > 50 y/o. 15:08 The patient presents with abdominal pain that is diffuse. Onset: The symptoms/episode kb began/occurred last night. The symptoms do not radiate. Associated signs and symptoms: none. The symptoms are described as constant. Modifying factors: The symptoms are alleviated by nothing, the symptoms are aggravated by nothing. Severity of pain: At its worst the pain was mild in the emergency department the pain is unchanged. The patient has not experienced similar symptoms in the past. The patient has not recently seen a physician. Pt reports generalized abd discomfort that started last night after eating dinner. States it's an annoying feeling. Denies f/c/n/v/d. States he had a couple of bowel movements last night, but were all normal in color and consistency. . Historical: - Allergies: 14:42 No Known Allergies; ca1 - Home Meds: 14:42 hydralazine 50 mg Oral tab 1 tab 4 times per day [Active]; latanoprost 0.005 % ca1 ophthalmic drop 1 drop once daily [Active]; pravastatin 40 mg Oral tab 1 tab once daily [Active]; metoprolol tartrate 25 mg Oral tab 1 tab 2 times per day [Active]; aspirin 81 mg Oral chew 1 tab once daily [Active]; - PMHx: 14:42 GERD; High Cholesterol; Hypertension; ca1 - PSHx: 14:42 Appendectomy; ca1 - Immunization history:: Adult Immunizations up to date, Client reports receiving the 2nd dose of the Covid vaccine, Client reports receiving the 1st dose of the Covid vaccine, Pneumococcal vaccine is up to date, Flu vaccine is up to date. - Social history:: Smoking status: Patient denies any tobacco usage or history of. ROS: 15:05 Constitutional: Negative for fever, chills, and weight loss. kb 15:05 Abdomen/GI: Positive for abdominal pain, Negative for nausea, vomiting, and diarrhea. 15:05 All other systems are negative. Exam: 15:05 Constitutional: This is a well developed, well nourished patient who is awake, alert, kb and in no acute distress. Head/Face: Normocephalic, atraumatic. ENT: Moist Mucous membranes Cardiovascular: Regular rate and rhythm with a normal S1 and S2. No gallops, murmurs, or rubs. No pulse deficits. Respiratory: Respirations even and unlabored. No increased work of breathing, no retractions or nasal flaring. Abdomen/GI: Soft, non-tender. No distention Skin: Warm, dry with normal turgor. Normal color. MS/ Extremity: Pulses equal, no cyanosis. Neurovascular intact. Full, normal range of motion. Neuro: Awake and alert, GCS 15, oriented to person, place, time, and situation. Moves all extremities. Normal gait. Psych: Awake, alert, with orientation to person, place and time. Behavior, mood, and affect are within normal limits. Vital Signs: 14:39 BP 194 / 77; Pulse 59; Resp 16 S; Temp 97.5(TE); Pulse Ox 98% on R/A; Weight 74.39 kg ca1 (R); Height 5 ft. 8 in. (172.72 cm) (R); Pain 4/10; 15:27 BP 165 / 75; Pulse 57; Resp 16; Pulse Ox 98% on R/A; ph 17:30 BP 181 / 67; Pulse 49; Resp 18; Pulse Ox 97% on R/A; ph 18:39 BP 184 / 73; Pulse 60; Resp 18; Pulse Ox 97% on R/A; ph 19:45 BP 152 / 85; Pulse 55; Resp 16; Pulse Ox 97% on R/A; jm8 14:39 Body Mass Index 24.94 (74.39 kg, 172.72 cm) ca1 MDM: 14:49 Patient medically screened. kb 15:07 Data reviewed: vital signs, nurses notes. Data interpreted: Pulse oximetry: on room air kb is 98 %. Interpretation: normal. 16:29 Physician consultation: Kendell Gray MD was contacted at 16:29, regarding consult, kb patient's condition, after a discussion of the case, a recommendation for transfer for higher level of care is made. 18:20 Physician consultation: Kendell Gray MD in the emergency department to see patient at 18:25. 19:09 Counseling: I had a detailed discussion with the patient and/or guardian regarding: the kb historical points, exam findings, and any diagnostic results supporting the discharge/admit diagnosis, lab results, radiology results, the need to transfer to another facility. ED course: Pt accepted by Dr Rodas to [facility]. 12/17 14:56 Order name: Basic Metabolic Panel 12/17 14:56 Order name: CBC with Diff 12/17 14:56 Order name: Hepatic Function 12/17 14:56 Order name: Lipase 12/17 15:19 Order name: Urine Dipstick-Ancillary; Complete Time: 15:23 EDMS 12/17 15:41 Order name: CBC with Automated Diff; Complete Time: 15:42 EDMS 12/17 14:56 Order name: CT Abd/Pelvis - IV Contrast Only 12/17 15:58 Order name: CREATININE WHOLE BLOOD; Complete Time: 15:58 EDMS 12/17 16:13 Order name: Basic Metabolic Panel; Complete Time: 16:14 EDMS 12/17 16:13 Order name: Liver (Hepatic) Function; Complete Time: 16:14 EDMS 12/17 16:13 Order name: Lipase; Complete Time: 16:14 EDMS 12/17 16:50 Order name: COVID-19 : Document "Date of Symptom Onset" if Symptomatic. ph 12/17 17:54 Order name: CORONAVIRUS EDMS 12/17 18:48 Order name: SARS-COV-2 RT PCR; Complete Time: 18:52 EDMS 12/17 14:56 Order name: IV Saline Lock; Complete Time: 15:34 kb 12/17 14:56 Order name: Labs collected and sent; Complete Time: 15:34 kb 12/17 16:08 Order name: CT; Complete Time: 16:14 EDMS Administered Medications: 15:33 Drug: morphine 2 mg Route: IVP; Site: left antecubital; ph 17:16 Follow up: Response: No adverse reaction ph 15:33 Drug: Zofran (Ondansetron) 4 mg Route: IVP; Site: left antecubital; ph 17:15 Follow up: Response: No adverse reaction ph Disposition: 12/18 06:15 Co-signature as Attending Physician, Hang Salcedo MD I agree with the assessment and kdr plan of care. Disposition: 12/17/20 19:50 Transfer ordered to Other Acute Care Facility. Diagnosis is Small Bowel obstruction secondary to hiatal hernia. - Reason for transfer: Higher level of care. - Accepting physician is Dr Rodas. - Condition is Stable. - Problem is new. - Symptoms are unchanged. Signatures: Dispatcher [employer] EDHI Anamaria Collier, RECORDER HELPER GRAVITY PROSPECTING-C RECORDER HELPER GRAVITY PROSPECTING-Ckb Hang Salcedo MD MD [facility] Natalie Granger, RN RN [employer] panda, RN RN [facility] Arjun Villanueva, RN RN jm8 Corrections: (The following items were deleted from the chart) 12/17 19:44 19:10 12/17/2020 19:10 Transfer ordered to Other Acute Care Facility. Diagnosis is kb Small bowel obstruction secondary to hiatal hernia. Reason for transfer: Higher level of care. Accepting physician is Dr Rodas. Condition is Stable. Problem is new. Symptoms are unchanged. kb 19:49 19:47 12/17/2020 19:47 Patients has left against medical advice. Impression: Small kb bowel obstruction secondary to hiatal hernia. Patient states they are going to Home. Condition is Fair. Problem is new. Symptoms are unchanged. kb 19:51 19:50 12/17/2020 19:50 Transfer ordered to Other Acute Care Facility. Diagnosis is kb Small Bowel obstruction secondary to hiatal hernia. Reason for transfer: Higher level of care. Accepting physician is Dr Blue. Condition is Stable. Problem is new. Symptoms are unchanged. kb 20:41 19:51 12/17/2020 19:50 Transfer ordered to Other Acute Care Facility. Diagnosis is jm8 Small Bowel obstruction secondary to hiatal hernia. Reason for transfer: Higher level of care. Accepting physician is Dr Rodas. Condition is Stable. Problem is new. Symptoms are unchanged. kb
--- NOTE | 2020-12-17 19:10 | ER ---
Nurse's Notes [facility] Name: Brennen Patel Age: 80 yrs Sex: Male : 1940 Arrival Date: 12/17/2020 Time: 14:38 Bed 16 Private MD: Diagnosis: Small Bowel obstruction secondary to hiatal hernia Presentation: 12/17 14:39 Chief complaint: Patient states: upper abdominal pain since last night. Denies N/V/D. ca1 Coronavirus screen: Client denies travel out of the [place] in the last 14 days. At this time, the client does not indicate any symptoms associated with coronavirus-19. Ebola Screen: Patient negative for fever greater than or equal to 101.5 degrees Fahrenheit, and additional compatible Ebola Virus Disease symptoms Patient denies exposure to infectious person. Patient denies travel to an Ebola-affected area in the 21 days before illness onset. No symptoms or risks identified at this time. Initial Sepsis Screen: Does the patient meet any 2 criteria? No. Patient's initial sepsis screen is negative. Does the patient have a suspected source of infection? No. Patient's initial sepsis screen is negative. Risk Assessment: Do you want to hurt yourself or someone else? Patient reports no desire to harm self or others. Onset of symptoms was December 17, 2020. 14:39 Method Of Arrival: Ambulatory ca1 14:39 Acuity: EL 2 ca1 Historical: - Allergies: 14:42 No Known Allergies; ca1 - Home Meds: 14:42 hydralazine 50 mg Oral tab 1 tab 4 times per day [Active]; latanoprost 0.005 % ca1 ophthalmic drop 1 drop once daily [Active]; pravastatin 40 mg Oral tab 1 tab once daily [Active]; metoprolol tartrate 25 mg Oral tab 1 tab 2 times per day [Active]; aspirin 81 mg Oral chew 1 tab once daily [Active]; - PMHx: 14:42 GERD; High Cholesterol; Hypertension; ca1 - PSHx: 14:42 Appendectomy; ca1 - Immunization history:: Adult Immunizations up to date, Client reports receiving the 2nd dose of the Covid vaccine, Client reports receiving the 1st dose of the Covid vaccine, Pneumococcal vaccine is up to date, Flu vaccine is up to date. - Social history:: Smoking status: Patient denies any tobacco usage or history of. Screenin:03 Abuse screen: Denies threats or abuse. Denies injuries from another. Nutritional ph screening: No deficits noted. Tuberculosis screening: No symptoms or risk factors identified. Fall Risk None identified. Assessment: 15:23 General: Appears in no apparent distress. comfortable, well groomed, Behavior is calm, ph cooperative, appropriate for age, Denies fever. Pain: Complains of pain in right upper quadrant. Neuro: Level of Consciousness is awake, alert, obeys commands, Oriented to person, place, time, situation. Cardiovascular: Capillary refill < 3 seconds in bilateral fingers Patient's skin is warm and dry. Respiratory: Airway is patent Respiratory effort is even, unlabored, Respiratory pattern is regular, symmetrical. GI: Abdomen is non-distended, Reports upper abdominal pain, Patient currently denies bloody stool, constipation, vomiting, last BM today, reports states that it was soft but not watery. 17:49 Reassessment: Patient appears in no apparent distress at this time. Patient and/or ph family updated on plan of care and expected duration. Pain level reassessed. Patient is alert, oriented x 3, equal unlabored respirations, skin warm/dry/pink. Daughter at bedside requesting to speak w/ doctor, states, We don't want surgery because all that does is cause more scar tissue, he just needs that tube they put down his throat like they did last time.. 18:38 Reassessment: Patient appears in no apparent distress at this time. Patient and/or ph family updated on plan of care and expected duration. Pain level reassessed. Patient is alert, oriented x 3, equal unlabored respirations, skin warm/dry/pink. Pt resting comfortably at this time, Dr Gray at bedside to speak w/ pt and family, pt to be transferred to [place] for further evaluation, pt and daughter states that they are okay with that plan of care. Vital Signs: 14:39 BP 194 / 77; Pulse 59; Resp 16 S; Temp 97.5(TE); Pulse Ox 98% on R/A; Weight 74.39 kg ca1 (R); Height 5 ft. 8 in. (172.72 cm) (R); Pain 4/10; 15:27 BP 165 / 75; Pulse 57; Resp 16; Pulse Ox 98% on R/A; ph 17:30 BP 181 / 67; Pulse 49; Resp 18; Pulse Ox 97% on R/A; ph 18:39 BP 184 / 73; Pulse 60; Resp 18; Pulse Ox 97% on R/A; ph 19:45 BP 152 / 85; Pulse 55; Resp 16; Pulse Ox 97% on R/A; jm8 14:39 Body Mass Index 24.94 (74.39 kg, 172.72 cm) ca1 ED Course: 14:38 Patient arrived in ED. ca1 14:40 Triage completed. ca1 14:42 Arm band placed on right wrist. ca1 14:49 Anamaria Collier FNP-C is PHCP. kb 14:49 Hang Salcedo MD is Attending Physician. kb 14:56 Natalie Granger RN is Primary Nurse. ph 15:22 Patient has correct armband on for positive identification. Bed in low position. Call ph light in reach. Side rails up X 1. Pulse ox on. NIBP on. Door closed. Noise minimized. 15:24 Missed attempt(s): 22 gauge in left wrist. Bleeding controlled, band aid applied, ph catheter tip intact. 16:[address] [facility] \T\1633 SPOKE WITH AZAR IN TRANSFER CENTER ,SHE DENIED [facility] TRANFER AT ALL CAMPUSES DUE TO 30 ER HOLDS ,NOTIFIED AND HERMINIO COLLIER CONSTRUCTION STONEMASON. 16:[address] [facility] \T\1645 TO SETUP TRANSFER SPOKE WITH ARCHANA IN [facility] TRANSFER [facility]ENTER ,TOOK PT INFO WILL CALL BACK. 17:00 \T\1700 GENERAL SURGEON FROM [facility] CALLED BACK AND SPOKE WITH ANAMARIA COLLIER [facility] AND DENIED TRANSFER. 17:05 1705 CALLED [facility] FOR PT TRANSFER SPOKE WITH PEGGY. [facility] 17:22 1720 [facility] DEN[facility]ER DUE TO CAPACITY. [facility] 17:36 1735 CALLED [facility] SPOKE WITH МАРИНА IN TRANSFER CENTER DENIED TRANSFER DUE TO [facility] CAPACITY. 18:36 DR.KOVACEV BERG, ,SPOKE WITH PEGGY RUVALCABA MD TO SECURE TRANSFER ER TO ER \T\1834 WILL CALL [facility] BACK WITH DETAILS. 18:42 JAY FROM TRANSFER CENTER CALLED TO DENY TRANSFER DUE TO CAPACITY \T\1842. [facility] 18:57 Jefferson Taveras with [facility] transfer center called and gave admin approval. The pt is going tt3 to [facility] ER. The accepting physician is Dr. Rodas. Nurse to call report to . Face sheet, MOT, and covid results faxed to per Jefferson's request. 20:40 No provider procedures requiring assistance completed. Patient transferred, IV remains jm8 in place. 20:41 Report given to Torres Jang RN ([facility]). jm8 Administered Medications: 15:33 Drug: morphine 2 mg Route: IVP; Site: left antecubital; ph 17:16 Follow up: Response: No adverse reaction ph 15:33 Drug: Zofran (Ondansetron) 4 mg Route: IVP; Site: left antecubital; ph 17:15 Follow up: Response: No adverse reaction ph Outcome: 19:10 ER care complete, transfer ordered by MD. kb 19:50 ER care complete, transfer ordered by MD. kb 20:40 Transferred by ground EMS to other acute care facility: [facility]. jm8 20:40 Condition: good 20:40 Instructed on the need for transfer. 20:41 Patient left the ED. jm8 Signatures: Anamaria Collier, SHRINK PIT SUPERVISOR-C SHRINK PIT SUPERVISOR-CkNatalie Beatty RN RN Fabienne Huber [facility] Mere Méndez RN RN ca1 Duane Pascual 3 Arjun Villanueva, RN RN jm8 Corrections: (The following items were deleted from the chart) 14:43 14:39 Acuity: EL 3 ca1 ca1 16:52 16:[address] [facility] \T\1633 SPOKE WITH AZAR IN TRANSFER CENTER ,SHE 3 DENIED TRANFER AT ALL CAMPUSES DUE TO 30 ER HOLDS ,NOTIFIED AND HERMINIO COLLIER CONSTRUCTION STONEMASON. 3
[2020-12-17 20:56] VITALS: TEMP 97.5
[2020-12-17 20:58] VITALS: O2SAT 97
[2020-12-17 21:00] VITALS: BP 184/73
--- NOTE | 2020-12-18 00:34 | CON ---
Date of Consultation: 12/17/2020 Brief History Of Present Illness: The patient is an 80-year-old male known to me from previous admis ghassan, who has a past medical history significant for trauma laparotomy, splenectomy, and hiatal herni a, status post hiatal hernia repair with recurrence of his hiatal hernia as well as multiple small merlene wel obstructions in the past, all treated non operatively. He presents to the hospital with bloating , distention, some low-grade nausea, minimal small amount of abdominal pain, but significant distenti on and bloating. He states that this felt like a bowel obstruction. As such, he came to the emergen cy room with the above-stated complaints. He continues to have bowel function as of today and feels symptomatic improvement since being brought to the hospital with IV pain medication. Past Medical History: Significant for high cholesterol, hypertension, and GERD. Past Surgical History: Includes splenectomy, diaphragmatic hernia repair, appendectomy, revision of diaphragmatic hernia repair with mesh, trauma laparotomy. Home Medications: Include Benicar, hydralazine, metoprolol, pravastatin. Social History: He denies smoking, alcohol, or recreational drug use. Review of Systems: Ten-point review of systems other than HPI, denies. Physical Examination: General: At the time of my examination; he is awake, alert, oriented. Psychiatric: Appropriate, conversive. HEENT: He is normocephalic. Sclerae icteric. Mucous membranes are moist. Oropharynx is clear. Neck: Supple without JVD. Chest: Equal expansion and excursion. Cardiovascular: Regular rate and rhythm. Pulmonary: Clear to auscultation bilaterally. Abdomen: Soft with minimal tenderness to palpation globally, worse in the epigastrium. Pelvis: Stable. He has a well-healed midline laparotomy scar. Extremities: No clubbing, cyanosis, edema. Skin: Warm and dry. Laboratory Data: Reveals a white blood count of 14.3, hemoglobin is 13.5, hematocrit 39.8, platelet count is 210, neutrophils are 74%. His sodium is 135, potassium 3.8, chloride 102, carbon dioxide 29 , BUN 21, creatinine 1.3, glucose is 120, total bilirubin 0.8, direct bilirubin 0.2, AST 18, ALT 13, alkaline phosphatase 61, lipase is 263. UA was essentially negative. He had imaging performed, whic h included a CT scan of the abdomen and pelvis, officially read as no free air or emergent surgical h olding. The patient shows small bowel obstruction pattern, partially due to a long-standing large hi atal hernia that contained several loops of small bowel as well as the pancreas. Additional dilated small bowel loops are downstream from the herniated loops and therefore may be due to adhesions or in ternal hernia. The specific mass or transition point is not clearly identified. Assessment And Plan: This is an 80-year-old male, who comes in with a recurrent small-bowel obstruct ion, possibly contributed to by his longstanding hiatal hernia. 1.IV fluid hydration. 2.N.p.o. status. 3.The patient does not have any nausea or vomiting. As such, we will forego the NG tube placement a t this time. The patient has a very large hiatal hernia, which is longstanding and recurrent. As rivera selvin, I have recommended that because the CT scan shows possibility of bowel obstruction related to his hiatal hernia, he be transferred to a higher level of care so that should he require surgical interv ention, he can have his hiatal hernia repaired at the same time because as far surgical options go, I could only address reduction of the hiatal hernia if this is indeed the cause of his bowel obstructi on. If any other etiologies exist, obviously we would be able to manage any standard bowel obstructi ons, but with the hiatal hernia complicating the picture, I felt it was advisable to transfer the pat ient to a higher level of care with a surgeon capable of doing a hiatal hernia surgery. The patient agrees to proceed as indicated. The patient has been accepted for transfer to [facility] by report. Thank you for this interesting consult. DARRON/BILLY Voice ID: [id number] Report ID: [id number]
== END 2020-12-17 20:41 ==
LOC: ER 14:33
DX: K44.9 Diaphragmatic hernia without obstruction or gangrene (principal); K56.609 Unspecified intestinal obstruction, unspecified as to partial versus complete obstruction; E78.00 Pure hypercholesterolemia, unspecified; I10 Essential (primary) hypertension; Z20.822 Contact with and (suspected) exposure to COVID-19; Z79.82 Long term (current) use of aspirin
CPT/HCPCS: 85025; 80048; 36415; 82565; 80076; 81003; 83690; 74177; U0003; Q9967; J2405; 96374; 96375; 99285

== ENCOUNTER 2022-02-21 20:13 | Inpatient (IN) | payer OTHER, MEDICARE ==
--- OUTSIDE RECORDS SUMMARY | 2022-02-21 20:17 | XMS REPORT | Continuity of Care Document ---
:1940 Author Organization [facility] t Address [address] [place] [place] [address] Care Team Providers Name Role Phone No, Pcp [facility] Primary Care Physician Unavailable Ciro Soriano Attending Clinician Unavailable LUIS ENRIQUE CATHERINE Attending Clinician Unavailable QUINTEN MATA Attending Clinician Unavailable Grover Mazariegos V Attending Clinician Unavailable LUIS ENRIQUE CATHERINE Admitting Clinician Unavailable QUINTEN MATA Admitting Clinician Unavailable Grover Mazariegos V Admitting Clinician Unavailable DANIELA SIMONS Admitting Clinician Unavailable Payers Payer Name Policy Type Policy Number Effective Date Expiration Date S ource MEDICARE A B [id number] 2005 00:00:00 [facility] [id number] 2019 HEALTHCARE 00:00:00 Problems Condition Condition Condition Status Onset Resolution Last Treating Co mments Source Name Details Category Date Date Treatment Clinician Date Small Small Disease [facility] Center GI bleed GI bleed Disease Active 2019-06 [facility] Allergies, Adverse Reactions, Alerts Allergy Allergy Status Severity Reaction(s) Onset Inactive Treating Comm ents Source Name Type Date Date Clinician No Known DA [facility] 00:[facility]: [address] No Known DA Active [facility] [facility] 00:[facility]: [address] NO KNOWN Allergy Active [facility] Social History Social Habit Start Date Stop Date Quantity Comments Source Alcohol intake 2020-07-23 2020-07-23 Ex-drinker [facility] 00:[facility]00 00:00:00 (finding) [facility] Tobacco use and 2020-06-21 2020-06-[address] [facility] exposure 00:00:00 00:00:00 [facility] Tobacco Comment 2020-06-21 2020-06-21 from ages 14-[address] [facility] 00:00:00 00:00:00 [facility] Sex Assigned At [address] [facility] 00:00:00 00:00:00 [facility] Smoking Status Start Date Stop Date Source Former smoker 2020-06-21 00:00:00 2020-06-21 00:00:00 [facility] Medications Ordered Filled Start Stop Current Ordering Indication Dosage Frequency Signature Comments Components Source Medication Medication Date Date Medication? Clinician (SIG) Name Name hydrALAZINE Yes 50mg Q.25D Take [address] (APRESOLINE 1-27 by mouth 4 [facility] ) 50 MG 15:21: (four) Medical tablet 55 times Center daily. aspirin 81 Yes 81mg QD Take [address] MG chewable 1-27 by mouth Luke s tablet 15:21: daily. Medical Center pantoprazol 2019-06 Yes 40mg Q.5D Take [address] e 2-28 tablet (40 [facility] (PROTONIX) 00:00: mg total) Me dical 40 MG 00 by mouth 2 Center tablet (two) times daily. metoprolol 2019-06 Yes 25mg Q.5D Take [address] tartrate 2-20 by mouth 2 [facility] (LOPRESSOR) 00:00: (two) Medic al 25 MG 00 times Center tablet daily. latanoprost 2019-[address] [facility] (XALATAN) 1-21 the right [facility] 0.005 % 00:00: eye Medical ophthalmic 00 nightly . Cent er solution pravastatin 2020-1 Yes TK [address] [facility] (PRAVACHOL) 0-28 HS. [facility] 40 MG 00:00: Medical tablet 00 Center Vital Signs Vital Name Observation Time Observation Value Comments Source HEIGHT 2020-07-23 03:19:00 172.7 cm WEIGHT 2020-07-23 03:19:00 72.576 kg WEIGHT 2020-06-24 06:00:00 71.487 kg HEIGHT 2020-06-23 20:56:00 172.7 cm HEIGHT 2020-07-23 03:19:00 172.7 cm WEIGHT 2020-07-23 03:19:00 72.576 kg WEIGHT 2020-06-24 06:00:00 71.487 kg HEIGHT 2020-06-23 20:56:00 172.7 cm Procedures This patient has no known procedures. Plan of Care Planned Activity Planned Date Details Comments Source Future Scheduled 2022-02-26 INFLUENZA VACCINE (#1) [facility] 00:00:00 [code = INFLUENZA Medical Ce nter VACCINE (#1)] Future Scheduled 2021-06-[address] [facility] Test 00:00:00 (12+) [code = Medical Center DEPRESSION SCREENING (12+)] Future Scheduled 2021-06-28 FALLS RISK SCREENING [facility] Test 00:00:00 [code = FALLS RISK Medical C enter SCREENING] Future Scheduled 2006-03-[address] [facility] Test 00:00:00 WELLNESS (YEAR 2 or Medical Center FIRST YEAR if no IPPE) [code = MEDICARE ANNUAL WELLNESS (YEAR 2 or FIRST YEAR if no IPPE)] Future Scheduled 2005 PNEUMOCOCCAL 65+ YRS [facility] Test 00:00:00 (1 - PCV) [code = Medical Ce nter PNEUMOCOCCAL 65+ YRS (1 - PCV)] Future Scheduled 1990 SHINGLES VACCINES ([address] [facility] Test 00:00:00 of 2) [code = SHINGLES Medic al Center VACCINES (1 of 2)] Future Scheduled 1959 DTAP/TDAP/TD VACCINES [facility] Test 00:00:00 (1 - Tdap) [code = Medical C enter DTAP/TDAP/TD VACCINES (1 - Tdap)] Future Scheduled 1940 COVID-19 VACCINE (#1) [facility] Test 00:00:00 [code = COVID-[address] VACCINE (#1)] Encounters Start End Encounter Admission Attending Care Care Encounter Source Date/Time Date/Time Type Type Clinicians Facility Department ID 2022-02-05 Outpatient Soriano, STNORBERTO STLMLC [id number] Common 11:48:[id number] [facility] 2021-11-11 Outpatient Soriano, STNORBERTO STLMLC [id number] Common 09:15:[address] [facility] 2021-04-05 Inpatient ER [facility] Surgery [id number] SLE 00:53:16 LUIS ENRIQUE DELGADILLO 2020-06-20 Inpatient UR ADOLFO [facility] Gastro [id number] SLE 10:23:00 QUINTEN 2022-02-11 2022-02-11 ambulatory STLMLC STLMLC [id number] Common 00:00:00 00:00:00 [facility] 2022-02-10 2022-02-10 ambulatory STLMLC STLMLC [id number] Common 00:00:00 00:00:00 [facility] 2021-12-05 2021-12-05 ambulatory STLMLC STLMLC [id number] Common 00:00:00 00:00:00 [facility] 2021-11-12 2021-11-12 ambulatory STLMLC STLMLC [id number] Common 00:00:00 00:00:00 [facility] 2021-11-11 2021-11-11 ambulatory STLMLC STLMLC [id number] Common 00:00:00 00:00:00 [facility] 2020-12-17 2020-12-19 Inpatient EM Do, Grover HCAWU TELE [id number] 12-15 [facility] 23:12:00 16:44:00 [id number] [facility] Results Test Description Test Time Test Comments Results Result [facility] e Comments - XR ABD COMP W 2020-12-18 DEC/ERE 16:46:00 [facility] 1940 Sex: M Patient Name: BRENNEN PATEL Unit No: [id number] EXAMS: CPT CODE: [id number] XR ABD COMP W DEC/ERE 21134 EXAMINATION: - XR ABD COMP W DEC/ERE. LOCATION: B2. HISTORY: sbo. COMPARISON: None. TECHNIQUE: Supine and upright AP views of the abdomen were obtained. FINDINGS: Mildly dilated loop of small bowel is seen in the left hemiabdomen with air-fluid level. No abnormal calcifications are identified. Thoracolumbar scoliosis is seen with associated degenerative changes. There is remodeling of the left superior pubic ramus. No acute osseous abnormality is seen. IMPRESSION: Mildly dilated loop of small bowel in the left hemiabdomen with air-fluid level, which may be secondary to bowel obstruction or focal ileus. Recommend continued follow-up. at 1646 Reported and signed by: Nidia Craft MD CC: Technologist: RT Summer(R) Transcrpt Date/Tm/Trnsp: 12/18/2020 ([phone] Augustus.PR7 Orig Print D/T: S: 12/18/2020 (3243) [facility] NAME: BRENNEN PATEL [address] PHYS: Grover ZAVALA Do, [place] [address] : 1940 AGE: 80 SEX: M LOC: [phone].[id number] A PHONE #: [phone] EXAM DATE: 12/18/2020 STATUS: ADM IN FAX #: [phone] RADIOLOGY NO: PAGE 1 Signed Report COVID 19 Asymptomatic IH AG 2020-12-18 00:39:00 Test Item Value Reference Range Interpretation Comme nts COVID 19 Asymptomatic IH AG NEGATIVE Negative "Negative results from patients (test code = COVNONPUIAG) wi th symptom onset beyondfive days, should be treat ed as presumptive, andconfirmation with a molecular assay, if neces roddy forpatient management may be performed. Negative result s do notrule out COVID-19 and sh ould not be used as the sole basisf or treatment or patient managem ent decisions, includinginfect ion control decisions. Nega tive results should beconsidered in the context of a patients recent exposures,history, and the presenc e of clinical signs and symptomscon sistent with COVID-19.This t est detects both viable andnon-v iable SARS-CoV and SARS CoV-2.Test performance dependson the a mount of virus (antigen) in th e sample." COMPREHENSIVE METABOLIC [id number] 22:57:00 Test Item Value Reference Range Interpretation Comments SODIUM (test code 137 MMOL/L 137-145 N = NA) POTASSIUM (test 3.9 MMOL/L 3.5-5.1 N code = K) CHLORIDE (test 100 MMOL/L 98-107 N code = CL) CARBON DIOXIDE 25 MMOL/L 22-30 N (test code = CO2) GLUCOSE (test 113 MG/DL 74-106 H code = GLU) BLOOD UREA 20 MG/DL 9-20 N NITROGEN (test code = BUN) GLOMERULAR > 60 Reporting units : FILTRATION RATE ml/min/1.73 m2 (Modified (test code = GFR) MDRD Formu la)Reference Range: > or = 6 0 ml/min/1.73 m2 CREATININE (test 1.10 MG/DL 0.66-1.25 N code = CREAT) TOTAL PROTEIN 7.9 G/DL 6.2-7.6 H [facility] Clinical Diagnostic (test code = has made us ellis re of PROT) newinformation regarding the potential i nterference ofEltrombopag ( a bone marrow stimulan t used to treatthrombocyt onmenia and aplastic anemia ) with specific assays on the Vitros 5600 of which Total Protein is one of thoseassays per formed in our lab.Interfe rence testing perform ed at Ortho determined that Eltrombopag does interfere with Vitros Total Protein asfollowsEltrom bopag Interference fo r Vitros Product Total Protein:======= Eltrombopag Max Observed Av g. BiasConcentrati on Concentration Concentration== ==== 2.5 mg/dl 6.0 g/dl +0.41 +0.34 3.5 mg/dl 6.0 g /dl +0.50 +0.45 5 mg/dl 6 .0 g/dl +0.73 +0.65 2.5 mg/dl 8.0 g/dl +0.44 +0.4 1 3.5 mg/dl 8.0 g/dl +0.55 +0.52 5 mg/dl 8.0 g/dl +0.86 +0.77 ALBUMIN (test 4.2 G/DL 3.5-5.0 N code = ALB) CALCIUM (test 8.8 MG/DL 8.4-10.2 N code = CA) BILIRUBIN TOTAL 0.9 MG/DL 0.2-1.3 N Eltrombopag Interference (test code = for Vitros Prod uct TBil, BILT) BuBc: Assa y Eltrombopag Becky lyte/ Max Observed Avg. B ias Concentration C oncentration Concentration== ====TBil 7mg/dl TBil/ 1. 2mg/dl +0.23mg.dl +0.2 0mg/dlBuBc 3.5mg/dl Bu/0.8 mg/dl +0.25mg/dl +0.2 4mg/dlBuBc 7 mg/dl Bu/14.2mg /dl +0.38mg/dl +0.2 5mg/dlBuBc 5mg/dl Bc/0mg/d l +0.25mg/dl +0.15mg/dlBuBc 3.5mg/dl Bc/2.8mg/dl +0. 25mg/dl +0.23mg/dl SGOT/AST (test 24 UNITS/L 17-59 N code = AST) SGPT/ALT (test 7 UNITS/L <50 code = ALT) ALKALINE 63 UNITS/L 38-126 N PHOSPHATASE (test code = ALKP) CBC W/AUTO [id number] 22:42:00 Test Item Value Reference Range Interpretation Comments WHITE BLOOD CELL (test code = 13.9 K/MM3 3.8-9.8 H WBC) RED BLOOD CELL (test code = 4.09 M/MM3 3.95-5.67 N RBC) HEMOGLOBIN (test code = HGB) 12.8 G/DL 12.4-16.7 N HEMATOCRIT (test code = HCT) 38.2 % 35.9-49.5 N MEAN CELL VOLUME (test code = 93 fL 81.7-96.1 N MCV) MEAN CELL HGB (test code = MCH) 31.3 pg 27.6-33.2 N MEAN CELL HGB CONCETRATION 33.5 % 32.9-35.5 N (test code = MCHC) RED CELL DISTRIBUTION WIDTH 15.2 % 12.1-15.2 N (test code = RDW) PLATELET COUNT (test code = 227 K/MM3 129-368 N PLT) MEAN PLATELET VOLUME (test code 10.7 fl 7.4-10.4 H = MPV) NEUTROPHIL % (test code = NT%) 67.5 % 43-75 N IMMATURE GRANULOCYTE % (test 0.2 % 0.0-2.0 N code = IG%) LYMPHOCYTE % (test code = LY%) 13.5 % 14-44 L MONOCYTE % (test code = MO%) 17.1 % 4-13 H EOSINOPHIL % (test code = EO%) 1.1 % 0-6 N BASOPHIL % (test code = BA%) 0.6 % 0-2 N NUCLEATED RBC % (test code = 0.0 % 0-1.0 N NRBC%) NEUTROPHIL # (test code = NT#) 9.37 K/mm3 2.0-7.6 H IMMATURE GRANULOCYTE # (test 0.03 x10 3/uL 0-0.03 N code = IG#) LYMPHOCYTE # (test code = LY#) 1.88 K/mm3 1.0-3.8 N MONOCYTE # (test code = MO#) 2.37 K/mm3 0.1-0.8 H EOSINOPHIL # (test code = EO#) 0.15 K/mm3 0.0-0.2 N BASOPHIL # (test code = BA#) 0.08 K/mm3 0.0-0.2 N NUCLEATED RBC # (test code = 0.00 K/mm3 0.0-0.1 N NRBC#) CBC W/PLT COUNT & AUTO [id number] 09:38:00 Test Item Value Reference Range Interpretation [...] CONCENTRATION Adequate (CELLAVISION)(BEAKER) (test code = 3438) University Intern ID - Laura Galan comments: Slide comments:BASIC METABOLIC [id number] 06:19:00 Test Item Value Reference Range Interpretation [...] 697) EGFR (BEAKER) (test 68 mL/min/1.73 ESTIMA RITA GFR IS code = 1092) sq m NOT ACCURATE CREATININE CLEARANCE IN PREDICTING GLOMERULAR FILTRATION RATE . ESTIMATED GFR I S NOT APPLICABLE FOR DIALYSIS PATIEN TS. University Intern ID - CHANO ORELLANA, UGI, WITH SMALL [id number] 16:51:00Reason for exam:->possible small bowel obstruction [facility] : 1940 Sex: MFINAL REPORT Small bowel [...] evidence of small bowel obstruction. Signed: Leona Yousifort Verified Date/Time: 07/23/2020 16:51:01 Reading Location: [facility] B1 C013X Ortho Consult Read ing Room U/S, RENAL, [id number] 09:33:00Abdomen limited area? Add comment if clarification is needed.->Renal Reason for exam:->brianda [facility] : 1940 Sex: MFINAL REPORT TECHNIQUE: Grayscale [...] on this ultrasound for the acute kidney injury.Specifically, no hydronephrosis Signed: Marbin Montoyaort Verified Date/Time: 07/23/2020 09:33:55 CBC W/PLT COUNT & AUTO [id number] 07:54:00 Test Item Value Reference Range Interpretation [...] CONCENTRATION Adequate (CELLAVISION)(BEAKER) (test code = 3438) University Intern ID - Tasneem OverholtUser comments: Slide comments:HEPATIC FUNCTION PANEL 2020-07-23 07:35:00 Test Item Value Reference Range [...] code = < U/L 6-55 L 347) University Intern ID - BASIC METABOLIC [id number] 07:21:00 Test Item Value Reference Range Interpretation [...] 697) EGFR (BEAKER) (test 71 mL/min/1.73 ESTIMA RITA GFR IS code = 1092) sq m NOT ACCURATE CREATININE CLEARANCE IN PREDICTING GLOMERULAR FILTRATION RATE . ESTIMATED GFR I S NOT APPLICABLE FOR DIALYSIS PATIEN TS. University Intern ID - SMLIPID [id number] 07:21:00 Test Item Value Reference Range Interpretation Comments TRIGLYCERIDES (BEAKER) (test code = 80 mg/dL 540) CHOLESTEROL (BEAKER) (test code = 109 mg/dL 631) HDL CHOLESTEROL (BEAKER) (test code 37 mg/dL = 976) LDL CHOLESTEROL CALCULATED (BEAKER) 56 mg/dL (test code = 633) Triglyceride Reference Range: Low Risk <150 Borderline 150-199 High Risk 200- 499 Very High Risk >=500Cholesterol Reference Range: Low Risk <200 Borderline 200-239 High Risk >240HDL Cholesterol Reference Range: Low Risk >=60 High Risk <40LDL Cholesterol Reference Range: Optimal <100 Near Optimal 100-129 Borderline 130-159 High 160-189 Very High >=190 University Intern ID - [id number] 07:21:00 Test Item Value Reference Range Interpretation Comments LIPASE (BEAKER) (test code = 749) 234 U/L 8-78 H University Intern ID - SMTISSUE [id number] 15:26:00Surgical Pathology Report Case: [id number] Authorizing Provider: Sarahy oLpez MD Collected:06/20/2020 04:09 PM Ordering Location: [place] [address] ICU Received: 06/24/2020 08:14 AM Pathologist: No Mueller MD Specimen: Biopsy, Gastric, Gastric Bx A. STOMACH, BIOPSY: - GASTRIC OXYNTIC MUCOSA WITH NO SIGNIFICANT DIAGNOSTIC ALTERATION. - NEGATIVE FOR HELICOBACTER PYLORI ORGANISMS BY WARTHIN STARRY STAIN. - NEGATIVE FOR INTESTINAL METAPLASIA, DYSPLASIA OR MALIGNANCY. Signing Pathologist Direct P clara Line: [phone] signed by No Mueller MD on 06/24/2020 at 3:26 [id number] BleedGastric biopsyReceived in formalin labeled the patient's name, accession number and "gastric biopsy" are 2 navarro-pink tissue fragments measuring up to 0.4 cm in greatest dimension which are filtered and submitted in toto in A1.MARILUZ Varghese, HT (ASCP)Performed.The interpretation of this caseincluded the use of immunohistochemistry or special stains.Warthin starryControl Slides Examined: In-house known positive controls were evaluated along with the test tissue. These control slides run alongside of the patients sample show appropriate staining. Internal positive and negative controls when available are evaluated Immunohistochemistry technical testing was performed at [facility], Pathology Laboratory where it was developed and its performance characteristics were determined. It has not been cleared or approved by the U.S. Food and Drug Administration. The FDA has d etermined that such clearance or approval is not necessary. The test is used for clinical purposes. It should not be regarded as investigational or for research. This laboratory is certified under the Clinical Laboratory Improvement Amendments of 1988 (CLIA-88) as qualified to perform high complexity clinical laboratory testing.[facility], Department of Pathology, [address] [place], [place] [id number], [facility], [facility], [address] [place] [address], [facility], Department of Pathology, [address] [place] [address], DHK W/PLT COUNT & AUTO [id number] 08:50:00 Test Item Value Reference Range Interpretation [...] CONCENTRATION Adequate (CELLAVISION)(BEAKER) (test code = 3438) University Intern ID - Isis Austin comments: Slide comments:BASIC METABOLIC PANEL 2020-06-24 06:47:00 [...] S NOT APPLICABLE FOR DIALYSIS PATIEN TS. University Intern ID - GARCIACT-GLUCOSE [id number] 06:07:00 Test Item Value Reference Range Interpretation Comments POC-GLUCOSE METER 101 mg/dL 70-110 : TESTED A T [facility] 6720 (BEAKER) (test code = BERTNE R [place], 153) [address]: University Intern/Techni nat ID = [id number] for UL LATTIL, RIMA POCT-GLUCOSE [id number] 20:39:00 Test Item Value Reference Range Interpretation Comments POC-GLUCOSE METER 97 mg/dL 70-110 : TESTED A T [facility] 6720 (BEAKER) (test code = [facility], 153) 25781: University Intern/Techni nat ID = [id number] for LILIANA TTIL, RIMA POCT-GLUCOSE [id number] 17:29:00 Test Item Value Reference Range Interpretation Comments POC-GLUCOSE METER 100 mg/dL 70-110 : TESTED A T [facility] 6720 (BEAKER) (test code = [facility], 153) 26119: University Intern/Techni nat ID = [id number] for FA ITH JOANA POCT-GLUCOSE [id number] 12:17:00 Test Item Value Reference Range Interpretation Comments POC-GLUCOSE METER 95 mg/dL 70-110 : TESTED A T [facility] 6720 (BEAKER) (test code = [facility], [facility]) 31181: University Intern/Techni nat ID = [id number] for FAIT H, JOANA CBC W/PLT COUNT & AUTO [id number] 11:41:00 Test Item Value Reference Range Interpretation [...] CONCENTRATION Adequate (CELLAVISION)(BEAKER) (test code = 3438) University Intern ID - Isis Austin comments: Slide comments:POCT-GLUCOSE METER 2020-06-23 08:02:00 Test Item Value Reference Range Interpretation Comments POC-GLUCOSE METER 105 mg/dL 70-110 : TESTED A T [facility] 6720 (BEAKER) (test code = [facility], 153) 50560: University Intern/Techni nat ID = [id number] for JOANA PEREYRA BASIC METABOLIC [id number] 07:04:00 Test Item Value Reference Range Interpretation [...] S NOT APPLICABLE FOR DIALYSIS PATIEN TS. University Intern ID - EDASIPOCT-GLUCOSE [id number] 21:34:00 Test Item Value Reference Range Interpretation Comments POC-GLUCOSE METER 112 mg/dL 70-110 H : TESTED A T [facility] 6720 (BEAKER) (test code = [facility], 153) 20458: University Intern/Techni nat ID = [id number] for CA RBAJAL, DESTINEE POCT-GLUCOSE [id number] 18:08:00 Test Item Value Reference Range Interpretation Comments POC-GLUCOSE METER 104 mg/dL 70-110 : TESTED A T [facility] 6720 (BEAKER) (test code = [facility], 153) 72064: University Intern/Techni nat ID = [id number] for Vu Williamsie POCT-GLUCOSE [id number] 12:55:00 Test Item Value Reference Range Interpretation Comments POC-GLUCOSE METER 89 mg/dL 70-110 : TESTED A T [facility] 6720 (BEAKER) (test code = DAJUAN Davis [place], 1538) 20[address]: University Intern/Techni nat ID = [id number] for INDER HERNÁNDEZ CBC W/PLT COUNT & AUTO [id number] 11:14:00 Test Item Value Reference Range Interpretation [...] CONCENTRATION Adequate (CELLAVISION)(BEAKER) (test code = 3438) University Intern ID - Isis Austin comments: Slide comments:POCT-GLUCOSE METER 2020-06-22 06:31:00 Test Item Value Reference Range Interpretation Comments POC-GLUCOSE METER 99 mg/dL 70-110 : TESTED A T [facility] 6720 (BEAKER) (test code = DAJUAN KH[place], 1538) [address]: University Intern/Techni nat ID = [id number] for LILIANA CALLAHANIL, RIMA BASIC METABOLIC [id number] 06:28:00 Test Item Value Reference Range Interpretation [...] S NOT APPLICABLE FOR DIALYSIS PATIEN TS. University Intern ID - EDASIPOCT-GLUCOSE [id number] 23:55:00 Test Item Value Reference Range Interpretation Comments POC-GLUCOSE METER 94 mg/dL 70-110 : TESTED A T [facility] 6720 (BEAKER) (test code = [facility], 153) 47000: University Intern/Techni nat ID = [id number] for RIMA CHAUDHRY [id number] 14:06:00 Test Item Value Reference Range Interpretation Comments MAGNESIUM (BEAKER) (test code = 1.9 mg/dL 1.6-2.6 627) University Intern ID - [id number] 14:06:00 Test Item Value Reference Range Interpretation Comments PHOSPHORUS (BEAKER) (test code = 2.3 mg/dL 2.3-4.7 604) University Intern ID - AAHAMIDPOCT-GLUCOSE [id number] 11:19:00 Test Item Value Reference Range Interpretation Comments POC-GLUCOSE METER 138 mg/dL 70-110 H : TESTED A T [facility] 6720 (BEAKER) (test code = [facility], 153) 38163: University Intern/Techni nat ID = [id number] for ERNA DOVE, ROSY CBC W/PLT COUNT & AUTO [id number] 07:57:00 Test Item Value Reference Range Interpretation [...] CONCENTRATION Adequate (CELLAVISION)(BEAKER) (test code = 3438) University Intern ID - Tasneem OverholtUser comments: Slide comments:BASIC [...] S NOT APPLICABLE FOR DIALYSIS PATIEN TS. University Intern ID - GLORIA LPOCT-GLUCOSE [id number] 07:12:00 Test Item Value Reference Range Interpretation Comments POC-GLUCOSE METER 82 mg/dL 70-110 : TESTED A T [facility] 6720 (BEAKER) (test code = DAJUAN KHAN [place], 1538) 29179: University Intern/Techni nat ID = [id number] for SUGU , SHEENAMOL POCT-GLUCOSE [id number] 00:07:00 Test Item Value Reference Range Interpretation Comments POC-GLUCOSE METER 111 mg/dL 70-110 H : TESTED A T [facility] 6720 (BEAKER) (test code [facility], = 1538) 98811: University Intern/Techni nat ID = [id number] for ASHLI WHEATMOL CBC (HEMOGRAM ONLY)2020-06-20 23:01:00 Test Item Value Reference [...] 0-0 (BEAKER) (test code = 413) POCT-GLUCOSE [id number] 18:06:00 Test Item Value Reference Range Interpretation Comments POC-GLUCOSE METER 79 mg/dL 70-110 : TESTED A T [facility] 6720 (BEAKER) (test code = DAJUAN Davis [facility], 1538) 97282: University Intern/Techni nat ID = [id number] for ROSY ORDONEZ SARS-COV2/RT-PCR ([facility])2020-06-20 17:06:00 Test Item Value Reference Range Interpretation Comments SARS-COV2/RT-PCR (test Negative Not Detected, Negative, code = 7598431) See external report for linked test SARS-COV-2 PERFORMING LAB [facility] ROGELIO (test code = 6045693) Negative result for this test determines that [...] individuals suspected of COVID-19 by their healthcare provider.This test [...] justifying the authorization of the emergency use ofin vitro diagnostic tests for detection and/or diagnosis of COVID-19 is terminated under Section 564(b)(2) of the Act or the EUA is revoked under Section 564(g) of the Act.Fact Sheet for Healthcare Prov iders:https://www.[employer]/sites/default/files/product/documents/Fact_Sheet_HC _Cvcwdlaey_Pleg_RCMQ-EzP-6.pdfFact Sheet for Healthcare Patients:https://www.[employer]/sites/default/files/product/docume nts/Ccqc_Mkeft_Hgtslymx_Qmfp_YWNG-SrA-8.pdfPerforming Laboratory:[address] [place]ina.[place], [place] [address]IGJNZETZTX AND HEMATOCRIT 2020-06-20 16:27:00 Test Item Value Reference Range Interpretation Comments HEMOGLOBIN (BEAKER) (test code = 8.8 GM/DL 13.7-17.5 L 410) HEMATOCRIT (BEAKER) (test code = 24.9 % 40.1-51.0 L 411) University Intern ID - [id number] 16:24:00 Test Item Value Reference Range Interpretation Comments FERRITIN (BEAKER) (test code = 99.40 ng/mL 5.00-275.00 361) University Intern ID - LAURA OAKLEYON, TIBC, % SAT. (WITHOUT FERRITIN)2020-06-20 16:03:00 Test Item Value Reference Range Interpretation Comments IRON (BEAKER) (test code = 547) 107.0 ug/dL 40.0-160.0 TOTAL IRON BINDING CAPACITY 173 ug/dL 250-450 L (BEAKER) (test code = 769) IRON % SATURATION (2) (BEAKER) 62 % 20-55 H (test code = 2590) University Intern ID - LAURA FPROTHROMBIN [id number] 12:22:00 Test Item Value Reference Range Interpretation [...] is 2.5-3.5 for patients wiht mechanical heart valves.[id number] 12:22:00 Test Item Value Reference Range Interpretation Comments PARTIAL THROMBOPLASTIN TIME 32.4 seconds 22.5-36.0 (BEAKER) (test code = 760) [id number] 12:22:00 Test Item Value Reference Range Interpretation Comments FIBRINOGEN LEVEL (BEAKER) (test 376 mg/dl 225-434 code = 658) COMPREHENSIVE METABOLIC [id number] 12:01:00 Test Item Value Reference Range Interpretation [...] S NOT APPLICABLE FOR DIALYSIS PATIEN TS. University Intern ID Med CLEMENTS [id number] 11:59:00 Test Item Value Reference Range Interpretation Comments MAGNESIUM (BEAKER) (test code = 1.8 mg/dL 1.6-2.6 627) University Intern ID Med [place]MENTS [id number] 11:59:00 Test Item Value Reference Range Interpretation Comments PHOSPHORUS (BEAKER) (test code = 1.8 mg/dL 2.3-4.7 L 604) University Intern ID Med CLEMENTS FHEMOGLOBIN AND [id number] 11:39:00 Test Item Value Reference Range Interpretation Comments HEMOGLOBIN (BEAKER) (test code = 9.4 GM/DL 13.7-17.5 L 410) HEMATOCRIT (JAVYAKER) (test code = 26.6 % 40.1-51.0 L 411) University Intern ID - [id number]
[2022-02-21 21:34] LABS: Absolute Lymphocytes (CBC) 1.6 K/uL (0.7-4.9); Hematocrit 47.4 % (39.6-49.0); Lymphocytes % 9.3 % (15.3-44.8); MPV 9.8 fL (7.6-11.3); RBC Red Blood Cell Count 5.04 M/uL (4.33-5.43)
[2022-02-21] MEDS ORDERED: ONDANSETRON 4 MG/2 ML VIAL ONE (21:41)
[2022-02-21] MEDS ORDERED: HYDRALAZINE HCL 20 MG/ML VIAL ONE (21:41)
[2022-02-21] MEDS ORDERED: MORPHINE 2 MG/ML SYR ONE (21:41)
[2022-02-21] MEDS ORDERED: MORPHINE 4 MG/ML SYR ONE (22:46)
[2022-02-21 23:16] LABS: Albumin 3.5 g/dL (3.4-5.0); Bilirubin Total 0.6 mg/dL (0.2-1.0); Potassium 3.8 mmol/L (3.5-5.1); Protein, Total 7.5 g/dL (6.4-8.2)
--- NOTE | 2022-02-22 00:44 | EDPHYS ---
Physician Documentation [facility] Name: Brennen Patel Age: 81 yrs Sex: Male : 1940 Arrival Date: 02/21/2022 Time: 20:17 Bed 4 Private MD: Bo [facility] ED Physician Hang Salcedo HPI: 02/21 22:02 This 81 yrs old Male presents to ER via Ambulatory with complaints of Abdominal Pain. kdr 22:02 The patient presents with abdominal pain in the lower abdomen. Onset: The kdr symptoms/episode began/occurred this morning. The symptoms do not radiate. Associated signs and symptoms: none. The symptoms are described as achy, steady, vague, waxing/waning. Modifying factors: The symptoms are alleviated by nothing, the symptoms are aggravated by nothing. touching the area. Severity of pain: At its worst the pain was mild a 6 / 10 in the emergency department the pain is unchanged. The patient has experienced similar episodes in the past, multiple times. The patient has not recently seen a physician. Historical: - Home Meds: 20:28 aspirin 81 mg Oral chew 1 tab once daily [Active]; hydralazine 50 mg Oral tab 1 tab hb three times a day [Active]; latanoprost 0.005 % ophthalmic drop 1 drop once daily [Active]; Xarelto 20 mg Oral tab 1 tab once daily [Active]; metoprolol tartrate 25 mg Oral tab 1 tab 2 times per day [Active]; pravastatin 40 mg Oral tab 1 tab once daily [Active]; 20:29 losartan 100 mg oral tab 1 tab once daily [Active]; hb - PMHx: 20:28 GERD; High Cholesterol; Hypertension; hb - Immunization history:: Adult Immunizations up to date. - Social history:: Smoking status: Patient denies any tobacco usage or history of. ROS: 22:02 Constitutional: Negative for fever, chills, and weight loss, Eyes: Negative for injury, kdr pain, redness, and discharge, ENT: Negative for injury, pain, and discharge, Neck: Negative for injury, pain, and swelling, Cardiovascular: Negative for chest pain, palpitations, and edema, Respiratory: Negative for shortness of breath, cough, wheezing, and pleuritic chest pain, Back: Negative for injury and pain, : Negative for injury, bleeding, discharge, and swelling, MS/Extremity: Negative for injury and deformity, Skin: Negative for injury, rash, and discoloration, Neuro: Negative for headache, weakness, numbness, tingling, and seizure activity. Psych: Negative for depression, anxiety, suicide ideation, homicidal ideation, and hallucinations, Allergy/Immunology: Negative for hives, rash, and allergies, Endocrine: Negative for neck swelling, polydipsia, polyuria, polyphagia, and marked weight changes, Hematologic/Lymphatic: Negative for swollen nodes, abnormal bleeding, and unusual bruising. 22:02 Abdomen/GI: Positive for abdominal pain, of the suprapubic area, right lower quadrant and left lower quadrant, Negative for nausea, vomiting, and diarrhea, constipation, abdominal distension, dysphagia, hematemesis, black/tarry stool, rectal pain, rectal bleeding, bowel incontinence. Exam: 22:02 Constitutional: This is a well developed, well nourished patient who is awake, alert, kdr and in no acute distress. Head/Face: Normocephalic, atraumatic. Eyes: Pupils equal round and reactive to light, extra-ocular motions intact. Lids and lashes normal. Conjunctiva and sclera are non-icteric and not injected. Cornea within normal limits. Periorbital areas with no swelling, redness, or edema. Neck: Trachea midline, no thyromegaly or masses palpated, and no cervical lymphadenopathy. Supple, full range of motion without nuchal rigidity, or vertebral point tenderness. No Meningismus. Chest/axilla: Normal chest wall appearance and motion. Nontender with no deformity. No lesions are appreciated. Cardiovascular: Regular rate and rhythm with a normal S1 and S2. No gallops, murmurs, or rubs. Normal PMI, no JVD. No pulse deficits. Respiratory: Lungs have equal breath sounds bilaterally, clear to auscultation and percussion. No rales, rhonchi or wheezes noted. No increased work of breathing, no retractions or nasal flaring. Back: No spinal tenderness. No costovertebral tenderness. Full range of motion. Skin: Warm, dry with normal turgor. Normal color with no rashes, no lesions, and no evidence of cellulitis. MS/ Extremity: Pulses equal, no cyanosis. Neurovascular intact. Full, normal range of motion. Neuro: Awake and alert, GCS 15, oriented to person, place, time, and situation. Cranial nerves II-XII grossly intact. Motor strength 5/5 in all extremities. Sensory grossly intact. Cerebellar exam normal. Normal gait. Psych: Awake, alert, with orientation to person, place and time. Behavior, mood, and affect are within normal limits. 22:02 Abdomen/GI: Inspection: abdomen appears normal, scar(s), are noted in the epigastric area, umbilical area and suprapubic area, Bowel sounds: active, diminished, in all quadrants, Palpation: soft, mild abdominal tenderness, in the suprapubic area, right lower quadrant and left lower quadrant. Vital Signs: 20:25 BP 148 / 88; Pulse 51; Resp 16; Temp 97.7; Pulse Ox 100% on R/A; Weight 73.03 kg; hb Height 5 ft. 8 in. (172.72 cm); Pain 6/10; 21:16 BP 193 / 73; Pulse 65; Resp 18; Pulse Ox 98% on R/A; tw5 22:15 BP 174 / 91; Pulse 73; Resp 18; Pulse Ox 95% on R/A; Pain 6/10; bb 23:47 BP 179 / 60; Pulse 70; Resp 17; Pulse Ox 95% on R/A; ll3 02/22 00:53 Pain 1/10; tw5 00:54 BP 173 / 73; Pulse 70; Resp 18; Pulse Ox 97% on R/A; Pain 1/10; tw5 03:00 BP 155 / 74; Pulse 59; Resp 17; Pulse Ox 95% on R/A; ll3 02/21 20:25 Body Mass Index 24.48 (73.03 kg, 172.72 cm) hb MDM: 02/21 22:02 Data reviewed: vital signs, nurses notes, lab test result(s), radiologic studies. kdr Counseling: I had a detailed discussion with the patient and/or guardian regarding: the historical points, exam findings, and any diagnostic results supporting the discharge/admit diagnosis, lab results, radiology results. 02/22 00:44 Patient medically screened. kdr 02/21 20:42 Order name: CBC with Diff; Complete Time: 21:59 kdr 02/21 20:42 Order name: CMP; Complete Time: 00:33 kdr 02/21 20:42 Order name: Lipase; Complete Time: 00:33 kdr 02/21 23:27 Order name: CREATININE WHOLE BLOOD; Complete Time: 00:33 EDMS 02/22 00:49 Order name: SARS RAPID; Complete Time: 01:37 wm 02/22 03:58 Order name: CBC with Automated Diff; Complete Time: 04:44 EDMS 02/21 21:23 Order name: CT Abd/Pelvis - IV Contrast Only kdr 02/22 04:12 Order name: Basic Metabolic Panel; Complete Time: 04:44 EDMS 02/22 04:12 Order name: Magnesium; Complete Time: 04:44 EDMS 02/21 20:42 Order name: IV Saline Lock; Complete Time: 21:17 kdr 02/21 20:42 Order name: Labs collected and sent; Complete Time: 21:17 kdr Administered Medications: 02/21 21:41 Drug: hydrALAZINE 10 mg Route: IVP; Site: right wrist; ll3 22:37 Follow up: Response: No adverse reaction tw5 21:41 Drug: morphine 2 mg Route: IVP; Infused Over: 4 mins; Site: right wrist; ll3 22:37 Follow up: Response: No adverse reaction; Pain is unchanged, physician notified; RASS: tw5 Alert and Calm (0) 21:41 Drug: Zofran (Ondansetron) 4 mg Route: IVP; Site: right wrist; ll3 22:37 Follow up: Response: No adverse reaction tw5 22:35 CANCELLED (Duplicate Order): morphine 4 mg IVP once over 4 mins tw5 22:43 Drug: morphine 4 mg Route: IVP; Infused Over: 4 mins; Site: right wrist; tw5 02/22 00:53 Follow up: Pain 1/10 Adult; Response: No adverse reaction; Pain is decreased; RASS: tw5 Alert and Calm (0) Disposition Summary: 02/22/22 00:44 Hospitalization Ordered Hospitalization Status: Inpatient Admission kdr Provider: Arjun Llamas Condition: Fair kdr Problem: new kdr Symptoms: have improved kdr Bed/Room Type: Standard kdr Location: Telemetry/MedSurg (Inpatient)(02/22/22 08:26) eb Room Assignment: 418(02/22/22 08:26) eb Diagnosis - Abdominal pain, Generalized kdr - Lower abdominal pain, unspecified kdr - Small bowel obstruction kdr Forms: - Medication Reconciliation Form kdr - SBAR form kdr Signatures: Dispatcher [employer] EDMS La Nena Gallagher RN RN mw Rittger, Kevin, MD MD kdr Vinita Robins RN RN Consuelo Gambino Tiffany tw5 Balta Hubbard RN RN ll3 Mira Medina PA PA sb3 Corrections: (The following items were deleted from the chart) 02/21 22:35 22:35 morphine 4 mg IVP once over 4 mins ordered. tw5 tw02/22 01:44 00:44 Telemetry/MedSurg (Inpatient) kdr mw 01:44 00:44 kdr mw 08: 01:44 [facility] ER HOLD mw eb 08: 01:44 ERHOLD- eb
--- NOTE | 2022-02-22 00:44 | ER ---
Nurse's Notes [facility] Name: Brennen Patel Age: 81 yrs Sex: Male : 1940 Arrival Date: 02/21/2022 Time: 20:17 Bed 4 Private MD: Ciro Soriano Diagnosis: Abdominal pain, Generalized;Lower abdominal pain, unspecified;Small bowel obstruction Presentation: 02/21 20:25 Chief complaint: Intermittent abdominal pain since this afternoon. Denies N/V/D. Last hb BM was today, soft in consistency. Hx of bowel obstructions. Coronavirus screen: At this time, the client does not indicate any symptoms associated with coronavirus-19. Ebola Screen: No symptoms or risks identified at this time. Initial Sepsis Screen: Does the patient meet any 2 criteria? No. Patient's initial sepsis screen is negative. Does the patient have a suspected source of infection? No. Patient's initial sepsis screen is negative. Risk Assessment: Do you want to hurt yourself or someone else? Patient reports no desire to harm self or others. Onset of symptoms was February 21, 2022. 20:25 Method Of Arrival: Ambulatory hb 20:25 Acuity: EL 3 hb Triage Assessment: 02/22 00:55 General: Appears in no apparent distress. Behavior is calm, cooperative, appropriate tw5 for age. Historical: - Home Meds: 02/21 20:28 aspirin 81 mg Oral chew 1 tab once daily [Active]; hydralazine 50 mg Oral tab 1 tab hb three times a day [Active]; latanoprost 0.005 % ophthalmic drop 1 drop once daily [Active]; Xarelto 20 mg Oral tab 1 tab once daily [Active]; metoprolol tartrate 25 mg Oral tab 1 tab 2 times per day [Active]; pravastatin 40 mg Oral tab 1 tab once daily [Active]; 20:29 losartan 100 mg oral tab 1 tab once daily [Active]; hb - PMHx: 20:28 GERD; High Cholesterol; Hypertension; hb - Immunization history:: Adult Immunizations up to date. - Social history:: Smoking status: Patient denies any tobacco usage or history of. Screenin:08 Abuse screen: Denies threats or abuse. Denies injuries from another. Nutritional tw5 screening: No deficits noted. Tuberculosis screening: No symptoms or risk factors identified. 21:17 Fall Risk IV access (20 points). tw5 Assessment: 21:16 General: Reports "I have been having lower abdmonial pain, and I just get worried tw5 because sometimes my bowels get all twisted up.". Neuro: Level of Consciousness is awake, alert, obeys commands, Oriented to person, place, time, situation. GI: Patient currently denies constipation, diarrhea. 21:17 Pain: Complains of pain in right lower quadrant and left lower quadrant Pain currently tw5 is 6 out of 10 on a pain scale. Cardiovascular: Capillary refill < 3 seconds. Respiratory: Airway is patent Trachea midline Respiratory effort is even, unlabored. 22:43 Pain: Pain currently is 6 out of 10 on a pain scale. tw5 22:43 General: ct called extra green top at bedside. tw5 23:47 Reassessment: No changes from previously documented assessment. Patient and/or family ll3 updated on plan of care and expected duration. Pain level reassessed. Patient is alert, oriented x 3, equal unlabored respirations, skin warm/dry/pink. 02/22 00:54 Reassessment: Patient states feeling better. Patient states symptoms have improved. tw5 Pain: Pain currently is 1 out of 10 on a pain scale. 00:55 General: Jo-Ann Yang [phone]. tw5 00:55 GI: Bowel sounds present X 4 quads. Abdomen is tender to palpation in suprapubic area, tw5 right lower quadrant and left lower quadrant. 02:30 Reassessment: No changes from previously documented assessment. Patient and/or family ll3 updated on plan of care and expected duration. Pain level reassessed. Patient is alert, oriented x 3, equal unlabored respirations, skin warm/dry/pink. Vital Signs: 02/21 20:25 BP 148 / 88; Pulse 51; Resp 16; Temp 97.7; Pulse Ox 100% on R/A; Weight 73.03 kg; hb Height 5 ft. 8 in. (172.72 cm); Pain 6/10; 21:16 BP 193 / 73; Pulse 65; Resp 18; Pulse Ox 98% on R/A; tw5 22:15 BP 174 / 91; Pulse 73; Resp 18; Pulse Ox 95% on R/A; Pain 6/10; bb 23:47 BP 179 / 60; Pulse 70; Resp 17; Pulse Ox 95% on R/A; ll3 02/22 00:53 Pain 1/10; tw5 00:54 BP 173 / 73; Pulse 70; Resp 18; Pulse Ox 97% on R/A; Pain 1/10; tw5 03:00 BP 155 / 74; Pulse 59; Resp 17; Pulse Ox 95% on R/A; ll3 02/21 20:25 Body Mass Index 24.48 (73.03 kg, 172.72 cm) hb ED Course: 02/21 20:17 Patient arrived in ED. as 20:17 Ciro Soriano DO is Private Physician. as 20:27 Hang Salceod MD is Attending Physician. kdr 20:28 Triage completed. hb 20:29 Arm band placed on. hb 20:42 Radha Martinez is Primary Nurse. tw5 21:08 Patient has correct armband on for positive identification. Placed in gown. Bed in low tw5 position. Call light in reach. Side rails up X 1. Client placed on continuous cardiac and pulse oximetry monitoring. NIBP monitoring applied. Door closed. Noise minimized. Moved to private room. Warm blanket given. Verbal reassurance given. 21:08 Initial lab(s) drawn, by me, sent to lab. Inserted saline lock: 20 gauge in right tw5 wrist, using aseptic technique. Blood collected. 21:08 Missed attempt(s): 20 gauge in right antecubital area. Bleeding controlled, band aid tw5 applied, catheter tip intact. 21:17 CBC with Diff Sent. tw5 21:17 CMP Sent. tw5 21:17 Lipase Sent. tw5 22:43 Awaiting lab results, Awaiting CT Scan. tw5 23:17 CT Abd/Pelvis - IV Contrast Only In Process Unspecified. EDMS 02/22 00:42 Arjun Llamas is Hospitalizing Provider. kdr 00:54 No provider procedures requiring assistance completed. Patient admitted, IV remains in tw5 place. Administered Medications: 02/21 21:41 Drug: hydrALAZINE 10 mg Route: IVP; Site: right wrist; ll3 22:37 Follow up: Response: No adverse reaction tw5 21:41 Drug: morphine 2 mg Route: IVP; Infused Over: 4 mins; Site: right wrist; ll3 22:37 Follow up: Response: No adverse reaction; Pain is unchanged, physician notified; RASS: tw5 Alert and Calm (0) 21:41 Drug: Zofran (Ondansetron) 4 mg Route: IVP; Site: right wrist; ll3 22:37 Follow up: Response: No adverse reaction tw5 22:35 CANCELLED (Duplicate Order): morphine 4 mg IVP once over 4 mins tw5 22:43 Drug: morphine 4 mg Route: IVP; Infused Over: 4 mins; Site: right wrist; tw5 02/22 00:53 Follow up: Pain 1/10 Adult; Response: No adverse reaction; Pain is decreased; RASS: tw5 Alert and Calm (0) Medication: 00:54 VIS not applicable for this client. tw5 Outcome: 00:44 Decision to Hospitalize by Provider. kdr 00:54 Admitted to ER Hold. [facility] for further documentation. tw5 00:54 Condition: stable 00:54 Discharge instructions given to patient, family, Instructed on the need for admit, Demonstrated understanding of instructions. 09:09 Patient left the ED. ph Signatures: Dispatcher [employer] EDMS Hang Salcedo MD MD kdr Martinez, Amelia as Edwige Mcclendon RN RN bb Natalie Granger RN RN Vinita Robins, Radha Knox RN tw5 Balta Hubbard RN RN ll3 Corrections: (The following items were deleted from the chart) 02/21 22:46 22:43 BP 174 / 91; Pulse 73bpm; Resp 18bpm; Pulse Ox 95% RA; Pain 6/10; tw5 bb
[2022-02-22 01:23] LABS: SARS-CoV-2 Antigen Rapid Res Negative (Negative)
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
[2022-02-22] MEDS ORDERED: MORPHINE 4 MG/ML SYR IV PRN (03:13)
[2022-02-22] MEDS: NA CHLORIDE 0.9% 1,000 ML IV SCH ×3 (03:13→20:29)
[2022-02-22] MEDS ORDERED: HYDRALAZINE HCL 20 MG/ML VIAL IV PRN (03:13)
[2022-02-22] MEDS ORDERED: NA CHLORIDE 0.9% 1,000 ML ONE (03:30)
[2022-02-22 03:56] LABS: Absolute Lymphocytes (CBC) 1.1 K/uL (0.7-4.9); Hematocrit 39.3 % (39.6-49.0); Lymphocytes % 8.8 % (15.3-44.8); MCV 93.5 fL (80-100); MPV 9.6 fL (7.6-11.3); RBC Red Blood Cell Count 4.21 M/uL (4.33-5.43)
[2022-02-22 04:11] LABS: Magnesium 2.3 mg/dL (1.8-2.4)
[2022-02-22 05:33] VITALS: BMI 24.5
[2022-02-22] MEDS ORDERED: METRONIDAZOLE 500mg IVPB 500 MG/100 ML BAG IV SCH (06:00)
[2022-02-22] MEDS ORDERED: METRONIDAZOLE 500mg IVPB 500 MG/100 ML BAG IV ONE (06:36)
[2022-02-22] MEDS ORDERED: ENOXAPARIN 40 MG/0.4 ML SQ SCH (09:00)
[2022-02-22] MEDS: Ciprofloxacin 200mg IV 200 MG/100 ML IV.SOLN. IV SCH ×2 (09:34→20:29)
[2022-02-22 10:27] LABS: Urine Bilirubin Negative (Negative); Urine Blood Trace-intact (Negative); Urine Clarity Clear (Clear); Urine Color Yellow (Yellow); Urine Glucose Negative (Negative); Urine Protein 1+ (Negative); Urine Urobilinogen 0.2 mg/dL (0.2-1.0); Urine pH 6.5 (5.0-7.0)
[2022-02-22 10:55] LABS: Urine Bacteria None Seen /HPF (<20)
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
--- NOTE | 2022-02-22 14:26 | P.PN ---
Date of Service: 02/22/22 Patient seen and examined. He states he has been passing gas. Diagnosis: Partial SBO. Functional constipation. Plan: Patient seen by general surgery-Dr. Gray and started on clear liquid and advance as tolerated. Continue antibiotics. IV hydration
[2022-02-22] MEDS: METRONIDAZOLE 500mg IVPB 500 MG/100 ML BAG IV SCH (16:13)
[2022-02-22] MEDS ORDERED: RIVAROXABAN 20 MG TABLET PO SCH (17:00)
[2022-02-22] MEDS: PANTOPRAZOLE 40MG TABLET PO SCH (20:29)
[2022-02-22] MEDS: METOPROLOL TAR 25 MG TAB PO SCH (20:30)
[2022-02-22] MEDS: HYDRALAZINE HCL 25 MG TABLET PO SCH (20:31)
[2022-02-22] MEDS ORDERED: HOME MED 1 EA UNK OPTH SCH (21:00)
[2022-02-22] MEDS ORDERED: LOSARTAN POTASSIUM 50 MG TABLET PO SCH (21:00)
[2022-02-22] MEDS ORDERED: ATORVASTATIN 10 MG TAB PO SCH (21:00)
[2022-02-23] MEDS: METRONIDAZOLE 500mg IVPB 500 MG/100 ML BAG IV SCH ×2 (01:02→09:37)
[2022-02-23 03:46] LABS: Absolute Lymphocytes (CBC) 1.2 K/uL (0.7-4.9); Hematocrit 34.6 % (39.6-49.0); Lymphocytes % 12.9 % (15.3-44.8); MPV 10.2 fL (7.6-11.3); RBC Red Blood Cell Count 3.64 M/uL (4.33-5.43)
[2022-02-23 03:56] LABS: Magnesium 2.2 mg/dL (1.8-2.4); Potassium 3.9 mmol/L (3.5-5.1)
[2022-02-23 04:55] LABS: Blood Morphology Comment NOT SEEN (NOT SEEN); Platelet Estimate ADEQ
[2022-02-23] MEDS ORDERED: POTASSIUM CL SA 10 MEQ TAB PO ONE (09:00)
[2022-02-23] MEDS ORDERED: ASPIRIN EC 81 MG TAB PO SCH (09:00)
[2022-02-23] MEDS: METOPROLOL TAR 25 MG TAB PO SCH (09:00)
[2022-02-23] MEDS ORDERED: SUCRALFATE 1 GM TABLET PO SCH (09:00)
[2022-02-23] MEDS: Ciprofloxacin 200mg IV 200 MG/100 ML IV.SOLN. IV SCH (09:38)
[2022-02-23] MEDS: HYDRALAZINE HCL 25 MG TABLET PO SCH ×2 (09:39→14:42)
[2022-02-23] MEDS: PANTOPRAZOLE 40MG TABLET PO SCH (09:40)
[2022-02-23 11:01] VITALS: O2SAT 97
[2022-02-23] MEDS: NA CHLORIDE 0.9% 1,000 ML IV SCH (11:38)
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
[2022-02-23 16:53] VITALS: BP 174/74; TEMP 97.5
--- NOTE | 2022-02-23 17:38 | P.PN ---
Subjective Date of Service: 02/23/22 Primary Care Provider: Bo Chief Complaint: SBO Subjective: Improving (Patient tolerated clears, passing gas, no pain, no nausea) Physical Examination - Vital Signs Temperature: 97.5 F Blood Pressure: 174/74 Pulse: 54 Respirations: 14 Pulse Ox (%): 97 - Physical Exam General: Alert, In no apparent distress, Cooperative Gastrointestinal: Soft and benign, Non-distended, No ascites, No tenderness, No masses, No rebound, No guarding Assessment And Plan - Plan 81 year old man with resolving PSBO - advance diet to soft as tolerated - medical management - serial exams
== END 2022-02-23 17:49 | disposition home or self-care (01) | DRG 389 ==
LOC: ER 20:13 → ERHOLD 02-22 01:20 → 4TH 02-22 09:01
PROVIDERS: ADMIT Internal Medicine; ATTEND Internal Medicine
DX: K56.600 Partial intestinal obstruction, unspecified as to cause (principal); N17.9 Acute kidney failure, unspecified; I10 Essential (primary) hypertension; E78.5 Hyperlipidemia, unspecified; K59.04 Chronic idiopathic constipation; K21.9 Gastro-esophageal reflux disease without esophagitis; D72.829 Elevated white blood cell count, unspecified; Z79.82 Long term (current) use of aspirin; Z79.01 Long term (current) use of anticoagulants; Z79.899 Other long term (current) drug therapy; Z20.822 Contact with and (suspected) exposure to COVID-19
CPT/HCPCS: 36415; 74177; 80048; 80053; 81001; 82565; 83690; 83735; 85025; 87811; 96374; 96375; 99285; J0360; J0744; J1650; J2270; J2405; J7030; Q9967